=== PATIENT | female | born 1955 | race Caucasian/White ===

== ENCOUNTER → 2017-01-09 | Outpatient (CLI) | payer OTHER ==
[~2017-01-09] MED LIST: ADVIN50/60 INH; ALBU0.633 NEB; ALBU1AER9 INH; ALUMCHW2 PO; ASPCH81X PO; ATRINS NEB; CHOL100010 PO; DOCU-94 PO; MAGN100C PO; METH500T3 PO; MISCCAP80 PO; OMEG1200 PO; SPRIN/30 INH
--- NOTE | 2017-01-09 12:58 | DIAGNOSTIC IMAGING REPORT ---
(CHEST) THORAX WITHOUT CT DOSE: 778.92 mGy.cm HISTORY: R91.1 Pulmonary nodule APT SCHED [facility] 01/05/17 @ 1 PM. arrive 30 TECHNIQUE: Multiaxial CT images of the chest were performed without contrast. A dose lowering technique was utilized adhering to the principles of ALARA. COMPARISON: Chest CT 01/10/2016. FINDINGS: Stable 3 mm nodule within the superior segment of the left lower lobe in image 64. Mild emphysema. Stable 3 mm subpleural nodule within the left lower lobe on image 230. Punctate calcified granuloma seen within the base of the left lower lobe. Punctate calcified granuloma within the right upper lobe posteriorly. Punctate calcification within the superior segment of the right lower lobe. Stable 3 mm nodule within the right middle lobe on image 202. No new pulmonary nodules. The central airways are patent. No suspicious lytic or blastic osseous lesions. No mediastinal or hilar lymphadenopathy. Visualized portions of the liver, spleen, and right adrenal gland are unremarkable. Stable 11 mm benign adenoma within the left adrenal gland. Stable ectasia of the ascending thoracic aorta measuring up to 3.9 cm in diameter. The heart is normal in size. IMPRESSION: 1. Stable bilateral pulmonary nodules with the largest measuring 3 mm. No new pulmonary nodules identified. 2. Stable dilatation of the ascending thoracic aorta measures up to 3.9 cm. Please refer to below summary of Fleischner criteria recommendations for follow-up of incidental CT nodules (Codey Garcia, Guidelines for management of small pulmonary nodules detected on CT scans: A statement from the Fleischner Society, Radiology 237: [phone].) SOLID NODULES Solitary nodule size: <6 mm * Low risk patients: no follow-up needed * high risk patients: optional CT at 12 months Solitary nodule size: 6-8 mm * Low risk patients: follow-up at 6-12 months, then consider further follow-up at 18-24 months * high risk patients: initial follow-up CT at 6-12 months and then at 18-24 months if no change Solitary nodule size: >8 mm * either low or high risk patients - consider follow-up CT at 3 months, and/or CT-PET, and/or biopsy Multiple nodules size: <6 mm * Low risk patients: no routine follow-up * high risk patients: optional CT at 12 months Multiple nodules size: 6-8 mm * Low risk patients: follow-up at 3-6 months, then consider further follow-up at 18-24 months * high risk patients: follow-up at 3-6 months, then at 18-24 months if no change Multiple nodules size: >8 mm * Low risk patients: follow-up at 3-6 months, then consider further follow-up at 18-24 months * high risk patients: follow-up at 3-6 months, then at 18-24 months if no change Note: newly detected indeterminate nodule in persons 35 years of age or older. * Low risk patients: minimal or absent history of smoking and/or other known risk factors * high risk patients: history of smoking or of other known risk factors (e.g. first degree relative with lung cancer, or exposure to asbestos, radon, uranium) * if a nodule up to 8 mm is partly solid or is ground glass further follow-up is required after 24 months to exclude possible slow growing adenocarcinoma (ALESSANDRO) SUBSOLID NODULES Solitary pure ground-glass nodule * nodule size <6 mm - no CT follow-up required * nodule size >=6 mm - follow-up CT at 6-12 months, then every 2 years until 5 years Solitary part-solid nodule * nodule size <6 mm - no CT follow-up required * nodule size >=6 mm - follow-up CT at 3-6 months. If unchanged, and solid component remains <6 mm, then annual follow-up for 5 years Multiple subsolid nodules * nodule size <6 mm - follow-up CT at 3-6 months, consider further follow-up at 2 and 4 years if stable * nodule size >=6 mm - follow-up CT at 3-6 months, subsequent management based on the most suspicious nodule(s) Electronically signed by: Sreedhar Chu M.D. 01/09/2017 12:57 PM Dictated Date/Time: 01/09/2017 12:51 PM
== END | disposition home or self-care (01) ==
LOC: C.CTS 12:28
PROVIDERS: ATTEND Internal Medicine Critical Care Medicine
DX: R91.8 Other nonspecific abnormal finding of lung field (principal); I77.810 Thoracic aortic ectasia

== ENCOUNTER → 2017-07-02 | Outpatient (CLI) | payer OTHER ==
--- NOTE | 2017-07-02 12:20 | DIAGNOSTIC IMAGING REPORT ---
(CHEST) THORAX WITHOUT CLINICAL HISTORY: 61 years-old Female presenting with J44.9 COPD, [id number] Pulmonary [id number]. TECHNIQUE: Multidetector CT imaging of the chest was performed without the use of intravenous contrast. IV contrast: None. A dose lowering technique was used consistent with the principles of ALARA (as low as reasonably achievable). COMPARISON: 01/09/2017. CT DOSE (mGy.cm): The estimated cumulative dose is 543.45 mGycm. FINDINGS: Biomedical Field Service Engineer topogram: Unremarkable. On soft tissue windows, normal thyroid and thoracic inlet. No axillary, supraclavicular, hilar, or mediastinal lymphadenopathy. Normal aorta. Normal heart size. No pericardial or pleural effusion. 13 mm left adrenal nodule consistent with benign adrenal adenoma by density, unchanged from prior. Normal liver density. On lung windows, minimal dependent changes likely atelectasis. Punctate solid nodule in the right middle lobe (series 4 image 171), unchanged. 4 mm solid nodule in the right middle lobe (series 4 image 181), unchanged. Punctate solid nodule at the right apex (series 4 image 34), unchanged. Multiple additional punctate nodules in the right lung. 3 mm solid nodule in the periphery of the left lower lobe (series 4 image 216), unchanged. Multiple additional punctate nodules in the left lung. Trace apical predominant emphysema with subsegmental bronchial debris with bronchial wall thickening in the lower lobes. Airways patent. On bone windows, normal osseous structures. IMPRESSION: 1. Multiple solid pulmonary nodules measuring up to 4 mm, unchanged. Follow-up per Sammy Society 2017 recommendations below. 2. Emphysema and bronchial wall thickening with mucous plugging, smoking related lung injury. 3. Stable benign left adrenal adenoma. Please refer to below summary of Fleischner Society 2017 recommendations for follow-up of incidental CT nodules (H Radha et al. Guidelines for management of incidental pulmonary nodules detected on CT images: From the Fleischner Society 2017. Radiology 2017; 284: 228-243.) SOLID NODULES Single nodule; size < 6 mm * Low risk patients: No routine follow-up * High risk patients: Optional CT at 12 months Single nodule; size 6-8 mm * Low risk patients: CT at 6-12 months, then consider CT at 18-24 months * High risk patients: CT at 6-12 months, then at 18-24 months Single nodule; size > 8 mm * Either low or high risk patients: Considered CT at 3 months, PET/CT, or tissue sampling Multiple nodules; size < 6 mm * Low risk patients: No routine follow up * High risk patients: Optional CT at 12 months Multiple nodules; size 6-8 mm * Low risk patients: CT at 3-6 months, then consider CT at 18-24 months * High risk patients: CT at 3-6 months, then at 18-24 months Multiple nodules; size > 8 mm * Low risk patients: CT at 3-6 months, then consider at 18-24 months * High risk patients: CT at 3-6 months, then at 18-24 months SUBSOLID NODULES Single ground-glass nodule * Nodule size < 6 mm: No routine follow-up * Nodule size > or = 6 mm: CT at 6-12 months to confirm persistence, then CT every 2 years until 5 years Single part-solid nodule * Nodule size < 6 mm: No routine follow-up * Nodules size > or = 6 mm: CT at 3-6 months to confirm persistence. If unchanged and solid component remains < 6 mm, annual CT should be performed for 5 years Multiple nodules * Nodule size < 6 mm: CT at 3-6 months. If stable, consider CT at 2 and 4 years. * Nodules size > or = 6 mm: CT at 3-6 months. Subsequent management based on the most suspicious nodule(s) NOTE: 1) These guidelines apply to incidental nodules. These guidelines do NOT apply to patients younger than 35 years, immunocompromised patients, or patients with cancer. 2) Risk categories: * Low risk patients: Minimal or absent history of smoking and/or other known risk factors * High risk patients: History of smoking, exposure to other carcinogens, emphysema, fibrosis, upper lobe location, family history of lung cancer, etc. 3) If a nodule up to 8 mm is partly solid or is ground glass, further follow-up is required after 24 months to exclude possible slow growing adenocarcinoma. Electronically signed by: Christopher Orozco M.D. 07/02/2017 12:19 PM Dictated Date/Time: 07/02/2017 12:11 PM
== END | disposition home or self-care (01) ==
LOC: C.CTS 11:52
PROVIDERS: ATTEND Internal Medicine Pulmonary Disease
DX: J44.9 Chronic obstructive pulmonary disease, unspecified (principal); R91.8 Other nonspecific abnormal finding of lung field

== ENCOUNTER → 2017-07-05 | Outpatient (CLI) | payer OTHER ==
[2017-07-05 10:13] LABS: BASO % 0.3 %; BASO ABS # 0.03 K/uL (0-0.2); EOS % 5.4 %; EOS ABS # 0.47 K/uL (0-0.5); HEMATOCRIT 40.7 % (37-47); HEMOGLOBIN 14.1 g/dL (12.0-16.0); IG# 0.02 K/uL (0.00-0.02); LYMPH % 22.7 %; LYMPH ABS # 1.97 K/uL (1.2-3.4); MEAN CELL VOLUME 85.9 fL (80-100); MEAN CORPUSCULAR HEMOGLOBIN 29.7 pg (25-34); MEAN CORPUSCULAR HGB CONC 34.6 g/dl (32-36); MEAN PLATELET VOLUME 9.8 fL (7.4-10.4); MONO % 6.2 %; MONO ABS # 0.54 K/uL (0.11-0.59); NEUT % 65.2 %; NEUT ABS # 5.66 K/uL (1.4-6.5); PLATELET COUNT 248 K/uL (130-400); RED CELL DISTRIBUTION WIDTH CV 13.2 % (11.5-14.5); RED CELL DISTRIBUTION WIDTH SD 41.7 fL (36.4-46.3); WHITE BLOOD COUNT 8.69 K/uL (4.8-10.8)
[2017-07-05 10:41] LABS: BLOOD UREA NITROGEN 10 mg/dl (7-18); CALCIUM 8.9 mg/dl (8.5-10.1); CARBON DIOXIDE 28 mmol/L (21-32); CREATININE 0.92 mg/dl (0.60-1.20); GLUCOSE 109 mg/dl (70-99); POTASSIUM 3.6 mmol/L (3.5-5.1); SODIUM 142 mmol/L (136-145)
[2017-07-05 10:52] LABS: CHOLESTEROL 152 mg/dl (0-200); LDL CHOLESTEROL CALCULATED 89 mg/dl
== END | disposition home or self-care (01) ==
LOC: C.LAB1850 09:12
PROVIDERS: ATTEND Family Medicine
DX: Z13.220 Encounter for screening for lipoid disorders (principal); Z00.00 Encounter for general adult medical examination without abnormal findings; Z11.59 Encounter for screening for other viral diseases; R20.0 Anesthesia of skin; R73.9 Hyperglycemia, unspecified

== ENCOUNTER → 2017-10-03 | Outpatient (CLI) | payer OTHER ==
--- NOTE | 2017-10-04 06:33 | PAP/PSG TECHNICIAN REPORT ---
[facility] Nocturnist Polysomnogram Report Study name: None Report date: 10/04/2017 Study date: 10/03/2017 Referring Physician: DR. LIZET MATTHEW Name: JOÃO BALDERRAMA Interpreting Physician: Al Vega M.D. Date of : 1955 Nocturnist: BUTCH Gonzalez. Sex: Female Age: 62 StudyType: PSG PAP Weight: 218 lbs Height: 62 years, Height 5' 9" BMI: 32.19 Medications: ADVAIR DISKUS, IPRATROPIUM-ALBUTEROL, SPIRIVA RESPIMAT, ESCITALOPRAM OXALATE 10 MG, ASPIRIN 81 MG, PROAIR HFA 108 90 BASE Patient History PATIENT HAS HISTORY OF COPD, FATIGUE AND DAYTIME SLEEPINESS. SHE RECENTLY HAD A HOME SLEEP STUDY DONE AND WAS POSITIVE FOR ENDY. SHE IS HERE TODAY FOR A CPAP TITRATION. RM 2 Parameters Monitored NPSG: E1-M2, E2-M1, Fp1-M2, Fp2-M1, F3-M2, F4-M2, F4-M1, C3-M2, C4-M2, C4-M1, O1-M2, O2-M2, O2-M1, T3-M2, T4-M1, P3-M2, P4-M1, CHIN1, CHIN2, HR, EKG, Legs, PFLOW, SNOR, FLOW, CFLOW, Tidal Volume, THOR, ABDO, SpO2, PLTH, CPRESS, ETCO2 Wave, ETCO2, pH Sleep Architecture Sleep Stages Time at Lights Off 10:02:58 PM STAGES Time (min.) TST (%) Time at Lights On 5:52:58 AM Wake 100.5 -- Total Recording Time (TRT) 471.00 min. N1 11.5 3 Total Sleep Period (TSP) 440.0 min. N2 153.5 42 Total Sleep Time (TST) 369.5min. N3 96.0 26 Awake Time 100.5 min. REM 108.5 29 Wake after Sleep Onset 70.5 min. Sleep Efficiency (SE) 79 % Sleep Onset Latency (RUSSEL) 30.0 min. Number of Stage 1 Shifts None Awakenings 12 Stage Changes 54 Number of REM periods 4 REM 108.5 29 REM Latency 51.0 min. NREM 261.0 71 Body Position Analysis Supine Right Left Side Prone Vertical Total Sleep Time (min.) 22.3 369.5 0.0 369.50 0.0 0.0 Total Sleep Time (%) 0% 100% 0% 100 0% N/A% Total Sleep Time REM (min.) 0.0 108.5 0.0 None 0.0 0.0 Total Sleep Time NREM (min.) 0.0 261.0 0.0 None 0.0 0.0 Intermittent Wake (min.) 22.3 78.2 0.0 None 0.0 0.0 Total Sleep Period (%) 0% None None None None None Arousals Myoclonus (PLM) * Events Count Index Events Count Index Spontaneous 18 3 Events Awake (PLMW) 79 47.2 Respiratory 0 0.0 Events Asleep w/ Arousal (PLMA) 6 1.0 PLM 6 1 Events Asleep w/o Arousal (PLMS) 33 5.4 Snoring 0 0 Total Asleep 39 6.3 Total 24 4 Total 118 15 Respiratory Analysis * CA OA MA CH H RERA Total Count 0 0 0 0 6 1 6 Index 0.0 0.0 0.0 0 1.0 0 1.1 Mean Duration 0.0 0.0 0.0 0.00 20.9 17.1 20.4 Longest Duration 0.0 0.0 0.0 0.00 0.0 17.1 25.6 Respiratory Event Summary Total Supine ~Supine Right Left Prone REM NREM Apneas Count 0 N/A 0 0 N/A N/A 0 0 Index 0.0 N/A 0 0.0 N/A N/A 0 0 Hypopneas (4% Desat) Count 6 N/A 6 6 N/A N/A 6 0 Index 1.0 N/A 1 1.0 N/A N/A 3.3 0.0 Apneas & All Hypopneas Count 6 N/A 6 6 N/A N/A 6 0 Index 1.0 N/A 1 1 N/A N/A 3.3 0.0 Respiratory Events (Dairy Equipment Installer+All Hyp+RERA) Count 6 N/A 7 7 N/A N/A 6 0 Index 1.1 N/A 1 1.1 N/A N/A 3.9 0.0 Respiratory Related Arousal Count 0 N/A 0 0 N/A N/A 0 0 Index 0.0 N/A 0 0 N/A N/A 0 0 Snoring Analysis Supine Right Left Prone REM NREM Total Snore duration 2.0 min Snores count N/A 89 N/A N/A 37 52 89 Snore mean duration 1.4 Sec Snores index N/A 14 N/A N/A 20.5 12.0 14.5 TST with snoring (%) 0.5% Desaturation Event Summary: Minimum %SpO2 Event Count Mean/Min/Max Duration(sec.) Desaturation Index % Time In Bed > 90 13 31.3 / 13.0 / 60.0 3.9 46.0 86 - 90 6 26.4 / 13.0 / 53.3 1.6 53.1 81 - 85 0 N/A 0.0 0.9 76 - 80 0 N/A 0.0 0.1 71 - 75 0 N/A 0.0 0.0 66 - 70 0 N/A 0.0 0.0 61 - 65 0 N/A 0.0 0.0 56 - 60 0 N/A 0.0 0.0 51 - 55 0 N/A 0.0 0.0 < 50 0 N/A 0.0 0.0 Total REM NREM Awake <50% 0.0 min. 0.0 min. 0.0 min. 0.0 min. 51 - 60% 0.0 min. 0.0 min. 0.0 min. 0.0 min. 61 - 70% 0.0 min. 0.0 min. 0.0 min. 0.0 min. 71 - 80% 0.2 min. 0.0 min. 0.0 min. 0.2 min. 81 - 90% 233.6 min. 51.2 min. 168.8 min. 13.7 min. 91 - 100% 198.9 min. 57.3 min. 92.1 min. 49.4 min. Average 90 91 90 92 Minimum SpO2 74 83 86 74 Desaturation Event Index 2.0 4.4 0.5 3.6 # Desat. Events below 89% 7 6 1 N/A Time(%) with Saturation below 89% 23.1 5.4 17.5 0.2 Time(min.) with Saturation below 89% 100.0 23.4 75.6 1.0 Time (mins) REM (mins) NREM (mins) % of TST SpO2 Below 90% 9 7 N2 47.6 SpO2 Below 88% 3 0 0 7 Heart Rate Analysis Min (bpm) Max (bpm) Average (bpm) Awake 70 255 86 NREM 64 127 79 REM 65 93 78 Overall 64 127 79 Supplemental O2 Values Minimum O2 level: None Value Start Time End Time Nocturnist Comments Ms. Balderrama slept in the right, left and supine positions. No cardiac arrhythmia noted. Leg movements noted. No bruxism noted. CPAP was initiated at +4 CMH2O and up-titrated to an optimal level of +10 CMH2O, which nearly eliminated all respiratory events and snoring. A Resmed Airfit F10 size small full face mask was used during titration Ms. Balderrama awoke to use the restroom 1 times during the night. Ms. Balderrama stated I slept as well as I do when I am in my own bed. I started 1l/min of supplemental oxygen around 4:02 am. The final report will be interpreted and signed by a sleep physician. The completed physician report will then be placed in the patient medical record. Therapy Event: Therapy (cm H20) 4 5 7 8 10 Total Time at Pressure (min.) 49.5 40.7 73.2 33.8 272.8 TST at Pressure (min.) 19.0 40.7 67.7 33.8 208.3 # Periods 1 1 1 1 1 Sleep Onset (min.) 30.0 0.0 0.0 0.0 0.0 REM Onset (min.) N/A 31.5 0.0 27.5 0.0 Sleep Efficiency % 38 100 92 100 76 Wakefulness (%) 61.6 0.0 7.5 0.0 23.6 Wakefulness (min.) 30.5 0.0 5.5 0.0 64.5 NREM 1 (%) 7.1 0.0 2.7 0.0 2.2 NREM 1 (min.) 3.5 0.0 2.0 0.0 6.0 NREM 2 (%) 29.3 33.1 27.9 22.3 35.7 NREM 2 (min.) 14.5 13.5 20.5 7.5 97.5 NREM 3 (%) 2.0 44.2 46.4 59.2 8.4 NREM 3 (min.) 1.0 18.0 34.0 20.0 23.0 REM (%) 0.0 22.7 15.4 18.5 30.0 REM (min.) 0.0 9.2 11.3 6.2 81.8 # Arousals 3 1 4 1 15 Arousal Index 9.5 1.5 3.5 1.8 4.3 # Snore 17 20 19 6 27 Snore Index 53.6 29.5 16.8 10.7 7.8 AHI 0.0 5.9 0.0 1.8 0.3 AHI Supine N/A N/A N/A N/A N/A AHI Non-Supine 0.0 5.9 0.0 1.8 0.3 NREM AHI 0.0 0.0 0.0 0.0 0.0 REM AHI N/A 26.0 0.0 9.6 0.7 RDI 0.0 5.9 0.0 1.8 0.6 # Obstructive 0 0 0 0 0 # Central Ap 0 0 0 0 0 # Mixed 0 0 0 0 0 # Hypopneas 0 4 0 1 1 RERAS 0 0 0 0 1 Total Respiratory Events 0 4 0 1 2 Time Below SpO2 89.00% (min.) 0.0 13.1 17.8 23.2 45.0 Mean NREM SpO2 (%) 91 89 89 88 90 Mean REM SpO2 (%) N/A 89 91 87 91 Mean Sleep SpO2 (%) 91 89 90 88 91 Min NREM SpO2 (%) 90 87 87 86 87 Min REM SpO2 (%) N/A 86 89 84 83 Position Supine (min.) 0.0 0.0 0.0 0.0 0.0 Position Non-supine (min.) 19.0 40.7 67.7 33.8 208.3 LM Index Sleep 9.5 4.4 5.3 5.3 6.9 LM Index NREM 9.5 3.8 3.2 2.2 4.7 LM Index REM N/A 6.5 16.0 19.2 10.3 Mean Heart Rate (bpm) 78 78 79 78 79 Min Heart Rate (bpm) 72 64 70 65 66
--- NOTE | 2017-10-08 14:27 | POLYSOMNOGRAPH REPORT ---
CLINICAL DATA: A 62-year-old female with BMI of 32.[address] Lomax with COPD, excessive daytime sleepiness, fatigue, and sleep apnea documented on a home sleep apnea test. This was a CPAP titration study. SLEEP ARCHITECTURE: Total sleep period was 440 minutes. Total sleep time was 369.5 minutes divided between 261 minutes of non-REM sleep and 108.5 minutes of REM sleep. Sleep latency was 30 minutes. REM latency was 51 minutes. Sleep efficiency was 79%. Wake after sleep onset was 70.5 minutes. Sleep consisted of stage N1 3%, stage N2 42%, stage N3 26%, and REM 29%. AROUSAL DATA: 24 arousals were recorded for an index of 4 per hour. PLM DATA: 39 limb movements of sleep were noted for an index of 6.3 per hour with arousal index of 1 per hour. RESPIRATORY DATA: The AHI was 1. There were 6 hypopneic episodes with mean duration of 20.9 seconds. OXIMETRY DATA: Transient hypoxemia was seen. Oxygen golden was 82%. Mean saturation was 90%. Time below 88% was 3 minutes. EKG: Heart rates ranged from 64-127 beats per minute. No arrhythmias were noted. HEEL NAIL RASPER'S COMMENTS AND TREATMENT SUMMARY: The patient slept in the right, left, and supine positions. CPAP was started using a ResMed AirFit F10 small full facemask. She was titrated up to 10 cm of water pressure, which eliminated all respiratory events and snoring. However, hypoxemia continued. At 4:02 a.m., 1 L per minute was added which corrected hypoxemia. IMPRESSION: Obstructive sleep apnea/hypopnea with nocturnal hypoxemia corrected with CPAP 10 cm water pressure, oxygen 1 L per minute using a ResMed AirFit F10 size small full facemask. RECOMMENDATIONS: The patient should be started on the above-noted treatment regimen and seen back in followup within 90 days to document efficacy and compliance. DIPIKAD
== END | disposition home or self-care (01) ==
LOC: C.NEUR 21:00
PROVIDERS: ATTEND Internal Medicine Critical Care Medicine
DX: G47.33 Obstructive sleep apnea (adult) (pediatric) (principal); G47.36 Sleep related hypoventilation in conditions classified elsewhere

== ENCOUNTER 2019-08-02 19:00 | Inpatient (IN) ==
[2019-08-02] MEDS ORDERED: SODIUM CHLORIDE 0.9% 1000ML 1,000 ML IV ONE (19:09)
--- NOTE | 2019-08-02 19:37 | Emergency Department Note ---
Impression & Plan Sepsis, Fever, Leukocytosis, Diverticulitis ED Provider Note NAME: JOÃO BALDERRAMA AGE: 64 SEX: F : 1955 ARRIVES VIA: Walk-In INFORMANT: Patient ED PROVIDER(S): David Baumann DO CHIEF COMPLAINT: Abdominal pain HPI: Patient is a 64-year-old female with a past medical history of COPD and E. coli sepsis with a renal abscess that presents the ER for abdominal pain. Pain is located in left lower quadrant. She describes as a 7 out of 10. It has been present for the past 2 days. She admits to nausea and vomiting. History of cholecystectomy and appendectomy. She is unsure when the fevers truly started. Denies any dysuria urgency or frequency at this time. No other exacerbating or remitting factors. ROS: See above HPI for pertinent positives & negatives. A total of 10 systems reviewed and were otherwise negative. PAST MEDICAL HISTORY:See Below PAST SURGICAL HISTORY:See Below FAMILY HISTORY:See Below SOCIAL HISTORY:See Below HOME MEDICATIONS:See Below ALLERGIES:See Below VITALS:See Below PHYSICAL EXAMINATION: GENERAL: Sitting up in bed, alert, well appearing, well nourished, no distress, non-toxic EYE EXAM: normal conjunctiva. OROPHARYNX: no exudate, no erythema, lips, buccal mucosa, and tongue normal and mucous membranes are moist NECK: supple, no nuchal rigidity, no adenopathy, non-tender LUNGS: Clear to auscultation. Normal chest wall mechanics HEART: no murmurs, S1 normal and S2 normal ABDOMEN: abdomen soft, tender palpation left lower quadrant, normo-active bowel sounds, no masses, no rebound or guarding. BACK: Back is symmetrical on inspection and there is no deformity, no midline tenderness, no CVA tenderness. SKIN: no rashes and no bruising UPPER EXTREMITIES: upper extremities are grossly normal. LOWER EXTREMITIES: No pitting edema. NEURO EXAM: Normal sensorium, cranial nerves II-XII grossly intact, normal speech, no gross weakness of arms, no weakness of legs. MEDICAL DECISION MAKING: Patient is a 64-year-old female that presents the ER for left lower quadrant abdominal pain. On arrival patient is found to be febrile and tachycardic. IV was established and shows a leukocytosis of 15,000. No significant anemia. INR was unremarkable. BMP with LFTs bilirubin and troponin was negative. UA was unremarkable. Patient was updated at bedside. Discussed with hospitalist for admission secondary to fever, tachycardia, leukocytosis and diverticulitis. She was given IV fluids and IV antibiotics while in the ER. Triage Nursing notes reviewed. Prior medical records reviewed Vital Signs: reviewed and remarkable for tachycardic, hypertensive and febrile Differential diagnosis: Differential diagnosis includes etiologies such as sepsis, UTI, pneumonia, metabolic, electrolyte abnormalities, cardiac sources, intracerebral event, toxicologic, neurological, as well as others were entertained. ER treatment provided: See below Diagnostics interpreted by me: ECG: Sinus rhythm rate 93 Normal axis No PVCs Normal QTC Cardiac Monitoring: An order was placed for continuous cardiac monitoring. The monitor shows a rate of 110 with sinus rhythm. Laboratory studies: As stated above and show below. Imaging studies: CT abdomen pelvis shows diverticulitis Consultation(s): Dr. Jonas for admission. ED COURSE: Procedures: none Critical Care: None Past Med/Surg History Medical History (Updated 08/02/19 @ 22:29 by David Baumann DO) Acute pyelonephritis (Inactive) COPD (chronic obstructive pulmonary disease) (Chronic) E. coli septicemia Fever GERD (gastroesophageal reflux disease) (Chronic) Gram negative septicemia H/O Clostridium difficile infection (Chronic) Herpes labialis Leukocytosis (Acute) Obstructive sleep apnea of adult Renal abscess Sepsis (Acute) Surgical History H/O colonoscopy (Chronic) "11/2013- hyperplastic polyp, diverticulosis" S/P (Resolved) "1982" S/P cholecystectomy (Resolved) Social History Preferred Language: Vietnamese marital status: Current Living Situation: Alone current occupational status: employed Feels Safe at Home: Yes Smoking Status: Current every day smoker Allergies Allergies Allergy/AdvReac Type Severity Reaction Status Date / Time Penicillins Allergy Intermediate RESP. Verified 08/02/19 21:12 ISSUES Sulfa (Sulfonamide Allergy Intermediate RESP. Verified 08/02/19 21:12 Antibiotics) ISSUES Home Meds Home Medications Medication Instructions Recorded Confirmed Lactobacillus acidophilus 1 cap PO QAM 01/09/18 08/02/19 [Probiotic] albuterol sulfate 0.63 mg INHALATION Q4H 01/09/18 08/02/19 albuterol sulfate [ProAir HFA] 2 puff INHALATION QID PRN 01/09/18 08/02/19 aspirin [Aspir-81] 162 mg PO HS 01/09/18 08/02/19 cholecalciferol (vitamin D3) 1,000 unit PO HS 01/09/18 08/02/19 [Vitamin D3] ipratropium bromide 2.5 ml INHALATION Q4H 01/09/18 08/02/19 magnesium 100 mg PO QAM PRN 01/09/18 08/02/19 omega-3 fatty acids 1,000 mg PO HS 01/09/18 08/02/19 Previous Rx's Medication Instructions Recorded CPAP Machine #10 liter 04/04/19 fluticasone 500 mcg-salmeterol 50 1 inh INHALATION BID #60 ea 04/04/19 mcg/dose blistr powdr for inhalation Results & Data (ED) Vital Signs Vital Signs - 24 hr 08/02/19 19:01 08/02/19 19:09 08/02/19 19:21 Temperature 38.1 C H 37.4 C Temperature Source Oral Oral Pulse Rate 111 H Pulse Rate [Finger] Pulse Rate from SpO2 Sensor Respiratory Rate 18 Respiratory Effort / Characteristics Non-Labored Respiratory Depth Normal Blood Pressure 162/98 H Blood Pressure [Right Arm] Blood Pressure Mean 119 Blood Pressure Mean [Right Arm] Pulse Oximetry 92 Oxygen Delivery Method Room Air Room Air Sepsis Recent Fever Within 48 Hours No Sepsis Action Taken by Nursing No Action Required 08/02/19 19:40 08/02/19 20:00 08/02/19 20:30 Temperature Temperature Source Pulse Rate 100 H 99 H Pulse Rate [Finger] 95 H Pulse Rate from SpO2 Sensor 99 H 99 H 95 H Respiratory Rate 15 32 H 29 H Respiratory Effort / Characteristics Non-Labored Spontaneous Respiratory Depth Normal Blood Pressure 120/87 135/70 144/82 H Blood Pressure [Right Arm] 144/82 H Blood Pressure Mean 106 94 99 Blood Pressure Mean [Right Arm] 102 Pulse Oximetry 94 91 92 Oxygen Delivery Method Room Air Room Air Room Air Sepsis Recent Fever Within 48 Hours Sepsis Action Taken by Nursing 08/02/19 21:01 08/02/19 21:36 08/02/19 22:00 Temperature Temperature Source Pulse Rate 87 85 89 Pulse Rate [Finger] Pulse Rate from SpO2 Sensor 88 86 88 Respiratory Rate 22 18 24 Respiratory Effort / Characteristics Respiratory Depth Blood Pressure 126/53 L 116/77 129/74 Blood Pressure [Right Arm] Blood Pressure Mean 79 91 91 Blood Pressure Mean [Right Arm] Pulse Oximetry 95 92 92 Oxygen Delivery Method Room Air Room Air Room Air Sepsis Recent Fever Within 48 Hours Sepsis Action Taken by Nursing Laboratory Data Result diagrams: 08/02/19 19:20 08/02/19 19:20 Lab Results 08/02/19 08/02/19 08/02/19 Range/Units 19:15 19:20 19:20 WBC 15.83 H (4.8-10.8) K/uL RBC 4.60 (4.2-5.4) M/uL Hgb 14.0 (12.0-16.0) g/dL Hct 40.7 (37-47) % MCV 88.5 (80-100) fL MCH 30.4 (25-34) pg MCHC 34.4 (32-36) g/dL RDW Std Deviation 43.3 (36.4-46.3) fL RDW Coeff of Grecia 13.4 (11.5-14.5) % Plt Count 251 (130-400) K/uL MPV 10.1 (7.4-10.4) fL Immature Gran % (Auto) 0.3 % Neut % (Auto) 74.9 % Lymph % (Auto) 13.0 % Cata[place] % (Auto) 9.0 % Eos % (Auto) 2.5 % Baso % (Auto) 0.3 % Immature Gran # (Auto) 0.05 H (0.00-0.02) K/uL Neut # (Auto) 11.87 H (1.4-6.5) K/uL Lymph # (Auto) 2.05 (1.2-3.4) K/uL [place] # (Auto) 1.43 H (0.11-0.59) K/uL Eos # (Auto) 0.39 (0-0.5) K/uL Baso # (Auto) 0.04 (0-0.2) K/uL PT 11.3 (9.0-12.0) Seconds INR 1.1 (0.9-1.1) APTT 26.2 (21.0-31.0) Seconds PTT Ratio 0.9 Sodium (136-145) mmol/L Potassium (3.5-5.1) mmol/L Chloride (98-107) mmol/L Carbon Dioxide (21-32) mmol/L Anion Gap (3-11) BUN (7-18) mg/dl Creatinine (0.6-1.2) mg/dl Est Cr Clr Drug Dosing ml/min Est GFR ( Amer) Est GFR (Non-Af Amer) BUN/Creatinine Ratio (10-20) Glucose (70-99) mg/dl Lactate (0.4-2.0) mmol/L Calcium (8.5-10.1) mg/dl Magnesium (1.8-2.4) mg/dl Total Bilirubin (0.2-1) mg/dl AST (15-37) U/L ALT (12-78) U/L Alkaline Phosphatase (45-117) U/L Troponin I (0-0.045) ng/ml Total Protein (6.4-8.2) gm/dl Albumin (3.4-5.0) gm/dl Globulin (2.5-4.0) gm/dl Albumin/Globulin Ratio (0.9-2) Urine Color Yellow Urine Appearance Cloudy A (Clear) Urine pH 5.0 (4.5-7.5) Ur Specific Horner 1.020 (1.000-1.030) Urine Protein 1+ H (Negative) Urine Glucose (UA) Negative (Negative) Urine Ketones Negative (Negative) Urine Blood 1+ H (Negative) Urine Nitrite Negative (Negative) Urine Bilirubin Negative (Negative) Urine Urobilinogen Negative (Negative) Ur Leukocyte Esterase Negative (Negative) Urine WBC (Auto) 1-5 (0-5) /hpf Urine RBC (Auto) 0-4 (0-4) /hpf U Hyaline Cast (Auto) 5-10 H (0-5) /lpf U Epithel Cells (Auto) >30 H (0-5) /lpf Urine Bacteria (Auto) Negative (Negative) SARS-CoV-2 RNA (RT-PCR) 08/02/19 08/02/19 08/02/19 Range/Units 19:20 19:25 21:25 WBC (4.8-10.8) K/uL RBC (4.2-5.4) M/uL Hgb (12.0-16.0) g/dL Hct (37-47) % MCV (80-100) fL MCH (25-34) pg MCHC (32-36) g/dL RDW Std Deviation (36.4-46.3) fL RDW Coeff of Grecia (11.5-14.5) % Plt Count (130-400) K/uL MPV (7.4-10.4) fL Immature Gran % (Auto) % Neut % (Auto) % Lymph % (Auto) % [place] % (Auto) % Eos % (Auto) % Baso % (Auto) % Immature Gran # (Auto) (0.00-0.02) K/uL Neut # (Auto) (1.4-6.5) K/uL Lymph # (Auto) (1.2-3.4) K/uL [place] # (Auto) (0.11-0.59) K/uL Eos # (Auto) (0-0.5) K/uL Baso # (Auto) (0-0.2) K/uL PT (9.0-12.0) Seconds INR (0.9-1.1) APTT (21.0-31.0) Seconds PTT Ratio Sodium 137 (136-145) mmol/L Potassium 4.0 (3.5-5.1) mmol/L Chloride 106 (98-107) mmol/L Carbon Dioxide 25 (21-32) mmol/L Anion Gap 6.0 (3-11) BUN 10 (7-18) mg/dl Creatinine 1.06 (0.6-1.2) mg/dl Est Cr Clr Drug Dosing 72.4 ml/min Est GFR ( Amer) 64.7 Est GFR (Non-Af Amer) 55.8 BUN/Creatinine Ratio 9.5 L (10-20) Glucose 139 H (70-99) mg/dl Lactate 1.1 (0.4-2.0) mmol/L Calcium 8.9 (8.5-10.1) mg/dl Magnesium 2.1 (1.8-2.4) mg/dl Total Bilirubin 0.7 (0.2-1) mg/dl AST 11 L (15-37) U/L ALT 34 (12-78) U/L Alkaline Phosphatase 73 (45-117) U/L Troponin I < 0.015 (0-0.045) ng/ml Total Protein 7.7 (6.4-8.2) gm/dl Albumin 3.5 (3.4-5.0) gm/dl Globulin 4.2 H (2.5-4.0) gm/dl Albumin/Globulin Ratio 0.8 L (0.9-2) Urine Color Urine Appearance (Clear) Urine pH (4.5-7.5) Ur Specific Horner (1.000-1.030) Urine Protein (Negative) Urine Glucose (UA) (Negative) Urine Ketones (Negative) Urine Blood (Negative) Urine Nitrite (Negative) Urine Bilirubin (Negative) Urine Urobilinogen (Negative) Ur Leukocyte Esterase (Negative) Urine WBC (Auto) (0-5) /hpf Urine RBC (Auto) (0-4) /hpf U Hyaline Cast (Auto) (0-5) /lpf U Epithel Cells (Auto) (0-5) /lpf Urine Bacteria (Auto) (Negative) SARS-CoV-2 RNA (RT-PCR) Cancelled Administered Medications Ioversol (Optiray 320 100ml) 94 ml IV ONCE PRN PRN Reason: Interaction Checking Stop: 08/06/19 20:15 Last Admin: 08/02/19 20:17 Dose: 94 ml Documented by: [id number] Discontinued Medications Sodium Chloride (Nss 1000ml) 1,000 mls @ 999 mls/hr IV .Q1H1M ONE Stop: 08/02/19 20:09 Last Infusion: 08/02/19 22:10 Dose: 0 mls/hr Documented by: [id number] Admin: 08/02/19 19:45 Dose: 999 mls/hr Documented by: [id number] Metronidazole (Flagyl) 500 mg in 100 mls @ 100 mls/hr IV NOW STA Stop: 08/02/19 21:54 Last Infusion: 08/02/19 22:10 Dose: 0 mls/hr Documented by: [id number] Admin: 08/02/19 21:04 Dose: 100 mls/hr Documented by: [id number] Discharge Plan Visit Data Chief Complaint: Flank Pain Stated Complaint: KIDNEY PAIN ED Provider: David Baumann Discharge Problem: Sepsis, Fever, Leukocytosis, Diverticulitis Forms Stand Alone Forms: [facility] Prescriptions Prescriptions: No Action fluticasone propion-salmeterol [Advair Diskus] 500-50 mcg/dose blister with device 1 inh INHALATION BID Qty: 60 RF: 6 Hold Instructions: trial trelegy (DME) CPAP Machine Misc See Rx Instructions .ROUTE .MEDSUPPLY Qty: 10 RF: 0 albuterol sulfate 0.63 mg/3 mL Solution For Nebulization 0.63 mg INHALATION Q4H RF: 0 omega-3 fatty acids 1,000 mg Capsule 1,000 mg PO HS RF: 0 aspirin [Aspir-81] 81 mg Tablet,Delayed Release (Dr/Ec) 162 mg PO HS RF: 0 albuterol sulfate [ProAir HFA] 90 mcg/actuation Hfa Aerosol Inhaler 2 puff INHALATION QID PRN (Reason: Shortness Of Breath Or Wheezing) RF: 0 ipratropium bromide 0.02 % Solution 2.5 ml INHALATION Q4H RF: 0 cholecalciferol (vitamin D3) [Vitamin D3] 1,000 unit Capsule 1,000 unit PO HS RF: 0 magnesium 200 mg Tablet 100 mg PO QAM PRN (Reason: Restless Legs) RF: 0 Probiotic 10 billion cell Capsule 1 cap PO QAM RF: 0 Discharge Problem: Sepsis Qualifiers: Sepsis type: sepsis due to unspecified organism Sepsis acute organ dysfunction status: unspecified Qualified Code(s): A41.9 - Sepsis, unspecified organism Fever Qualifiers: Fever type: unspecified Qualified Code(s): R50.9 - Fever, unspecified Leukocytosis Qualifiers: Leukocytosis type: unspecified Qualified Code(s): D72.829 - Elevated white blood cell count, unspecified
[2019-08-02 19:42] LABS: Basophils # (auto) 0.04 K/uL (0-0.2); Basophils % (auto) 0.3 %; Eosinophils # (auto) 0.39 K/uL (0-0.5); Eosinophils % (auto) 2.5 %; Hematocrit (blood only) 40.7 % (37-47); Immature Granulocytes # (auto) 0.05 K/uL (0.00-0.02); Immature Granulocytes % (auto) 0.3 %; Lymphocytes # (auto) 2.05 K/uL (1.2-3.4); Mean Corpuscular Hemoglobin 30.4 pg (25-34); Mean Corpuscular Hgb Conc 34.4 g/dL (32-36); Mean Corpuscular Volume 88.5 fL (80-100); Mean Platelet Volume 10.1 fL (7.4-10.4); Monocytes # (auto) 1.43 K/uL (0.11-0.59); Neutrophils # (auto) 11.87 K/uL (1.4-6.5); Neutrophils % (auto) 74.9 %; Platelet Count 251 K/uL (130-400); RDW Coefficient of Variation 13.4 % (11.5-14.5); RDW Standard Deviation 43.3 fL (36.4-46.3); White Blood Count 15.83 K/uL (4.8-10.8)
--- NOTE | 2019-08-02 19:42 | XRay Report ---
SINGLE VIEW CHEST CLINICAL HISTORY: Sepsis. FINDINGS: An AP, portable, upright chest radiograph is compared to study dated 10/13/2015 and correlat ed with chest CT dated 02/20/2019. The examination is degraded by portable technique, apical lordotic positioning, and patient rotation. The cardiomediastinal silhouette is unremarkable. Mild emphysem atous change is similar to previous. Atelectasis is noted at the lung bases. No airspace consolidatio n or large pleural effusion is identified. No pneumothorax is seen. The skeletal structures are osteo penic. The bony thorax is grossly intact. IMPRESSION: Emphysematous change with no active disease in the chest. ACT 112: Negative or not required by law. Electronically signed by: Royce Bourgeois M.D. 08/02/2019 7:41 PM
[2019-08-02 19:45] LABS: Appearance Urine Cloudy (Clear); Bacteria Urine Automated Negative (Negative); Bilirubin Urine Negative (Negative); Blood Urine 1+ (Negative); Color Urine Yellow; Epithelial Cell Urine Auto >30 /lpf (0-5); Glucose Urine UA Negative (Negative); Ketones Urine Negative (Negative); Leukocyte Esterase Urine Negative (Negative); Nitrite Urine Negative (Negative); Protein Urine 1+ (Negative); RBC Urine Automated 0-4 /hpf (0-4); Urobilinogen Urine Negative (Negative)
[2019-08-02 19:56] LABS: INR 1.1 (0.9-1.1); Partial Thromboplastin Ratio 0.9; Partial Thromboplastin Time 26.2 Seconds (21.0-31.0); Prothrombin Time 11.3 Seconds (9.0-12.0)
[2019-08-02 19:59] LABS: Albumin Level 3.5 gm/dl (3.4-5.0); Aspartate Aminotransferase 11 U/L (15-37); BUN Creatinine Ratio 9.5 (10-20); Blood Urea Nitrogen 10 mg/dl (7-18); Calcium 8.9 mg/dl (8.5-10.1); Carbon Dioxide 25 mmol/L (21-32); Chloride 106 mmol/L (98-107); Creatinine Clr Calc Pharmacy 72.4 ml/min; Est GFR (African American) 64.7; Est GFR (Non-African American) 55.8; Glucose 139 mg/dl (70-99); Magnesium 2.1 mg/dl (1.8-2.4); Sodium 137 mmol/L (136-145)
[2019-08-02 20:04] LABS: Alanine Aminotransferase 34 U/L (12-78); Albumin Globulin Ratio 0.8 (0.9-2); Alkaline Phosphatase 73 U/L (45-117); Bilirubin,Total 0.7 mg/dl (0.2-1); Globulin 4.2 gm/dl (2.5-4.0); Total Protein 7.7 gm/dl (6.4-8.2); Troponin I < 0.015 ng/ml (0-0.045)
[2019-08-02] MEDS ORDERED: IOVERSOL 100ml IV PRN (20:16)
--- NOTE | 2019-08-02 20:34 | CT Scan Report ---
CT SCAN OF THE ABDOMEN AND PELVIS WITH IV CONTRAST CLINICAL HISTORY: Lower abdominal pain. COMPARISON STUDY: Abdominal CT dated 01/09/2018. TECHNIQUE: Following the IV administration of 94 cc of Optiray 320, CT scan of the abdomen and pelvi s is performed from the lung bases to the proximal femora. Images are reviewed in the axial, sagittal , and coronal planes. IV contrast was administered without complication. A dose lowering technique wa s utilized adhering to the principles of ALARA. CT DOSE: 1430.55 mGy.cm FINDINGS: Lung bases: The heart is normal in size and without pericardial effusion. The lung bases are clear no ting bibasilar scarring/atelectasis. Liver: The contrast-enhanced liver is enlarged, measuring 20.5 cm in length. The liver demonstrates d iffusely diminished attenuation consistent with hepatic steatosis. There is no intrahepatic biliary d uctal dilatation. The hepatic veins and portal veins are patent. Gallbladder: Surgically absent. Spleen: Spleen is mildly enlarged measuring 14.1 cm in length. Pancreas: Moderately atrophic and grossly unremarkable. Adrenal glands: A 1.9 cm left adrenal adenoma is unchanged. The right adrenal gland is normal in appe arance. Kidneys: The contrast enhanced kidneys demonstrate mild cortical atrophy and are without hydronephros is. The kidneys enhance symmetrically. A 3 mm nonobstructing calculus is seen in the right lower pole . Cortical scarring is noted in the left kidney. A subcentimeter cortical hypodensity in the left rig ht kidney likely represents a cyst but is too small for definitive characterization. Abdominal vasculature: The abdominal aorta is normal in course and caliber. Ectasia of the celiac anthony nk is unchanged. This measures up to 12 mm in diameter Bowel: There is moderate colonic diverticulosis. There is wall thickening with pericolonic inflammati on and trace fluid seen involving the sigmoid colon consistent with acute diverticulitis. No organize d fluid collection is seen to suggest abscess. No bowel obstruction is identified. The appendix is n ot visualized. Peritoneum: There is no intraperitoneal free air or abdominal ascites. Lymphadenopathy: None. Pelvic viscera: The bladder and uterus are normal as imaged. The left ovary is mildly enlarged, likel y representing a reactive oophoritis. Skeletal structures: The skeletal structures are osteopenic. No lytic or blastic lesions are seen. IMPRESSION: 1. There is moderate colonic diverticulosis with evidence of acute sigmoid diverticulitis. 2. No intraperitoneal free air is identified and there is no organized fluid collection to suggest ab scess. 3. The left ovary is mildly enlarged and located adjacent to the acute diverticulitis. This indicates a reactive oophoritis. 4. Hepatomegaly and hepatic steatosis. 5. Mild splenomegaly. 6. Right-sided nephrolithiasis. 7. Additional findings as above. ACT 112: Negative or not required by law. Electronically signed by: Royce Bourgeois M.D. 08/02/2019 8:33 PM
[2019-08-02] MEDS ORDERED: metroNIDAZOLE 500 MG/100 ML BAG IV STA (20:55)
--- NOTE | 2019-08-02 22:35 | History & Physical Report ---
Date of Service August 02, 2019 Assessment & Plan (1) Sepsis: (2) Diverticulitis: 64-year-old female with history of COPD presenting with left lower quadrant pain x2 days. Acute sigmoid diverticulitis Sepsis secondary to above CT abd/pelvis: 1. There is moderate colonic diverticulosis with evidence of acute sigmoid diverticulitis. 2. No intraperitoneal free air is identified and there is no organized fluid collection to suggest abscess. 3. The left ovary is mildly enlarged and located adjacent to the acute diverticulitis. This indicates a reactive oophoritis. 4. Hepatomegaly and hepatic steatosis. 5. Mild splenomegaly. 6. Right-sided nephrolithiasis. 7. Additional findings as above. Lactic acid normal Follow-up blood cultures Cipro plus Flagyl N.p.o., IV fluids General surgery consultation COPD patient unable to have her usual nebs since 1 pm (+) mild wheeze CXR clear continue usual Advair, Nebs q4h DVT prophylaxis SCDs Disposition Anticipate discharge to home medically stable History of Present Illness 64-year-old female with history of COPD continue with left lower quadrant pain x 2 days. Patient reports 2-day history of left lower quadrant pain associated with nausea and vomiting. No fevers or chills, shortness of breath, cough, sputum production. No melena or hematochezia. No problems with urination. At the ER, patient was received febrile 38.1, tachycardic at 111, blood pressure stable. Positive leukocytosis 15,800 CT abdomen pelvis showed: 1. There is moderate colonic diverticulosis with evidence of acute sigmoid diverticulitis. 2. No intraperitoneal free air is identified and there is no organized fluid collection to suggest abscess. 3. The left ovary is mildly enlarged and located adjacent to the acute diverticulitis. This indicates a reactive oophoritis. 4. Hepatomegaly and hepatic steatosis. 5. Mild splenomegaly. 6. Right-sided nephrolithiasis. 7. Additional findings as above. On exam the patient reports mild left lower quadrant discomfort. No other symptoms Primary Care Provider: Christopher Torres MD Allergies Allergy/AdvReac Type Severity Reaction Status Date / Time Penicillins Allergy Intermediate RESP. Verified 08/02/19 21:12 ISSUES Sulfa (Sulfonamide Allergy Intermediate RESP. Verified 08/02/19 21:12 Antibiotics) ISSUES Home Medications Home Medications Medication Instructions Recorded Confirmed Type Lactobacillus acidophilus 1 cap PO QAM 01/09/18 08/02/19 History [Probiotic] albuterol sulfate 0.63 mg INHALATION Q4H 01/09/18 08/02/19 History albuterol sulfate [ProAir HFA] 2 puff INHALATION QID PRN 01/09/18 08/02/19 History aspirin [Aspir-81] 162 mg PO HS 01/09/18 08/02/19 History cholecalciferol (vitamin D3) 1,000 unit PO HS 01/09/18 08/02/19 History [Vitamin D3] ipratropium bromide 2.5 ml INHALATION Q4H 01/09/18 08/02/19 History magnesium 100 mg PO QAM PRN 01/09/18 08/02/19 History omega-3 fatty acids 1,000 mg PO HS 01/09/18 08/02/19 History CPAP Machine #10 liter 04/04/19 04/04/19 Rx fluticasone 500 mcg-salmeterol 50 1 inh INHALATION BID #60 ea 04/04/19 08/02/19 Rx mcg/dose blistr powdr for inhalation Past Med/Surg History Medical History (Updated 08/02/19 @ 22:29 by David Bamuann DO) Acute pyelonephritis (Inactive) COPD (chronic obstructive pulmonary disease) (Chronic) E. coli septicemia Fever GERD (gastroesophageal reflux disease) (Chronic) Gram negative septicemia H/O Clostridium difficile infection (Chronic) Herpes labialis Leukocytosis (Acute) Obstructive sleep apnea of adult Renal abscess Sepsis (Acute) Surgical History H/O colonoscopy (Chronic) "11/2013- hyperplastic polyp, diverticulosis" S/P (Resolved) "1982" S/P cholecystectomy (Resolved) Social History Preferred Language: Khmer marital status: Current Living Situation: Alone current occupational status: employed Feels Safe at Home: Yes Smoking Status: Current every day smoker Review of Systems Review of Systems: All systems reviewed & are unremarkable except as noted in HPI & below Physical Exam Physical Exam: General- oriented x 3, not in distress, speaks in sentences with no effort or accessory muscle use Head- atraumatic Eyes- PERRL, EOMI, anicteric ENT- oropharynx clear Neck- supple, no JVD, no adenopathy, no thyromegaly; carotids +2/2, no bruits appreciated Lungs-mild wheeze BL Heart- normal rate, regular rhythm; no murmur, no gallop, no rub appreciated Abdomen- normal bowel sounds, nondistended, soft, positive mild tenderness left lower quadrant, no masses or hepatosplenomegaly Extremities- no pretibial edema, no calf tenderness; peripheral pulses intact Neuro- alert, oriented x 3; CN 2-12 grossly intact; motor 5/5 bilaterally;sensation 100% on all extremities; no other gross focal neurologic deficits Skin- warm & dry Results & Data Results & Data ([facility]) Vital Signs (Past 12 Hours) Vital Signs Temp Pulse Pulse Resp BP BP Pulse Ox 08/02/19 22:00 89 24 129/74 92 08/02/19 21:36 85 18 116/77 92 08/02/19 21:01 87 22 126/53 L 95 08/02/19 20:30 95 H 29 H 144/82 H 144/82 H 92 08/02/19 20:00 99 H 32 H 135/70 91 08/02/19 19:40 100 H 15 120/87 94 08/02/19 19:21 37.4 C 08/02/19 19:01 38.1 C H 111 H 18 162/98 H 92 Laboratory Results Laboratory Results - last 24 hr 08/02/19 08/02/19 08/02/19 19:15 19:20 19:20 WBC 15.83 H RBC 4.60 Hgb 14.0 Hct 40.7 MCV 88.5 MCH 30.4 MCHC 34.4 RDW Std Deviation 43.3 RDW Coeff of [place] 13.4 Plt Count 251 MPV 10.1 Immature Gran % (Auto) 0.3 Neut % (Auto) 74.9 Lymph % (Auto) 13.0 Kerr % (Auto) 9.0 Eos % (Auto) 2.5 Baso % (Auto) 0.3 Immature Gran # (Auto) 0.05 H Neut # (Auto) 11.87 H Lymph # (Auto) 2.05 Kerr # (Auto) 1.43 H Eos # (Auto) 0.39 Baso # (Auto) 0.04 PT 11.3 INR 1.1 APTT 26.2 PTT Ratio 0.9 Sodium Potassium Chloride Carbon Dioxide Anion Gap BUN Creatinine Est Cr Clr Drug Dosing Est GFR ( Amer) Est GFR (Non-Af Amer) BUN/Creatinine Ratio Glucose Lactate Calcium Magnesium Total Bilirubin AST ALT Alkaline Phosphatase Troponin I Total Protein Albumin Globulin Albumin/Globulin Ratio Urine Color Yellow Urine Appearance Cloudy A Urine pH 5.0 Ur Specific [place] 1.020 Urine Protein 1+ H Urine Glucose (UA) Negative Urine Ketones Negative Urine Blood 1+ H Urine Nitrite Negative Urine Bilirubin Negative Urine Urobilinogen Negative Ur Leukocyte Esterase Negative Urine WBC (Auto) 1-5 Urine RBC (Auto) 0-4 U Hyaline Cast (Auto) 5-10 H U Epithel Cells (Auto) >30 H Urine Bacteria (Auto) Negative COVID-19 PCR SARS-CoV-2 RNA (RT-PCR) 08/02/19 08/02/19 08/02/19 19:20 19:25 21:25 WBC RBC Hgb Hct MCV MCH MCHC RDW Std Deviation RDW Coeff of [place] Plt Count MPV Immature Gran % (Auto) Neut % (Auto) Lymph % (Auto) Kerr % (Auto) Eos % (Auto) Baso % (Auto) Immature Gran # (Auto) Neut # (Auto) Lymph # (Auto) Kerr # (Auto) Eos # (Auto) Baso # (Auto) PT INR APTT PTT Ratio Sodium 137 Potassium 4.0 Chloride 106 Carbon Dioxide 25 Anion Gap 6.0 BUN 10 Creatinine 1.06 Est Cr Clr Drug Dosing 72.4 Est GFR ( Amer) 64.7 Est GFR (Non-Af Amer) 55.8 BUN/Creatinine Ratio 9.5 L Glucose 139 H Lactate 1.1 Calcium 8.9 Magnesium 2.1 Total Bilirubin 0.7 AST 11 L ALT 34 Alkaline Phosphatase 73 Troponin I < 0.015 Total Protein 7.7 Albumin 3.5 Globulin 4.2 H Albumin/Globulin Ratio 0.8 L Urine Color Urine Appearance Urine pH Ur Specific [place] Urine Protein Urine Glucose (UA) Urine Ketones Urine Blood Urine Nitrite Urine Bilirubin Urine Urobilinogen Ur Leukocyte Esterase Urine WBC (Auto) Urine RBC (Auto) U Hyaline Cast (Auto) U Epithel Cells (Auto) Urine Bacteria (Auto) COVID-19 PCR SARS-CoV-2 RNA (RT-PCR) Cancelled 08/02/19 21:25 WBC RBC Hgb Hct MCV MCH MCHC RDW Std Deviation RDW Coeff of [place] Plt Count MPV Immature Gran % (Auto) Neut % (Auto) Lymph % (Auto) Kerr % (Auto) Eos % (Auto) Baso % (Auto) Immature Gran # (Auto) Neut # (Auto) Lymph # (Auto) Kerr # (Auto) Eos # (Auto) Baso # (Auto) PT INR APTT PTT Ratio Sodium Potassium Chloride Carbon Dioxide Anion Gap BUN Creatinine Est Cr Clr Drug Dosing Est GFR ( Amer) Est GFR (Non-Af Amer) BUN/Creatinine Ratio Glucose Lactate Calcium Magnesium Total Bilirubin AST ALT Alkaline Phosphatase Troponin I Total Protein Albumin Globulin Albumin/Globulin Ratio Urine Color Urine Appearance Urine pH Ur Specific [place] Urine Protein Urine Glucose (UA) Urine Ketones Urine Blood Urine Nitrite Urine Bilirubin Urine Urobilinogen Ur Leukocyte Esterase Urine WBC (Auto) Urine RBC (Auto) U Hyaline Cast (Auto) U Epithel Cells (Auto) Urine Bacteria (Auto) COVID-19 PCR Pending SARS-CoV-2 RNA (RT-PCR) (1) Sepsis Sepsis acute organ dysfunction status: unspecified Sepsis type: sepsis due to unspecified organism Qualified Code(s): A41.9 - Sepsis, unspecified organism
[2019-08-02] MEDS ORDERED: MoRPHine SULFATE 4 MG/ML 1 ML CARP\\VIAL IV PRN (23:17)
[2019-08-02] MEDS ORDERED: ALBUTEROL HFA 8 GM INHALER INH PRN (23:17)
[2019-08-02] MEDS ORDERED: PROMETHAZINE HCL 12.5 MG in SODIUM CHLORIDE 0.9% 50 ML IV PRN (23:17)
[2019-08-02] MEDS ORDERED: D5W AND NSS 1,000 ML IV SCH (23:17)
[2019-08-02] MEDS ORDERED: ALBUTEROL 0.5% NEB SOLN 2.5 MG/0.5 ML VIAL NEB PRN (23:17)
[2019-08-02] MEDS ORDERED: IPRATROPIUM BROMIDE NEB SOLN 0.02% 2.5 ML VIAL INH PRN (23:17)
[2019-08-02] MEDS ORDERED: NON-FORMULARY MEDICATION (Magnesium 100 MG) PO PRN (23:17)
[2019-08-02] MEDS ORDERED: ACETAMINOPHEN 325 MG TAB PO PRN (23:17)
[2019-08-02] MEDS ORDERED: TRAMADOL HCL 50 MG TABLET PO PRN (23:17)
[2019-08-02] MEDS ORDERED: XOPENEX/ATROVENT 1.25mg/0.5MG NEB COMBO NEB SCH (23:45)
[2019-08-02] MEDS ORDERED: FLUTICASONE/VILANTEROL 200/25MCG 14 PUFFS/INHALER INH STA (23:49)
[2019-08-02] MEDS: IPRATROPIUM BROMIDE NEB SOLN 0.02% 2.5 ML VIAL INH SCH (23:51)
[2019-08-02] MEDS ORDERED: FLUTICASONE/VILANTEROL 200/25MCG 14 PUFFS/INHALER INH SCH (23:51)
[2019-08-02] MEDS: LEVALBUTEROL 1.25MG/0.5ML NEB INH SCH (23:55)
[2019-08-03] MEDS: CIPROFLOXACIN / D5W 400 MG/200 ML BAG IV SCH ×2 (00:16→11:36)
[2019-08-03] MEDS: LEVALBUTEROL 1.25MG/0.5ML NEB INH SCH ×3 (03:08→11:10)
[2019-08-03] MEDS: IPRATROPIUM BROMIDE NEB SOLN 0.02% 2.5 ML VIAL INH SCH ×3 (03:09→11:11)
[2019-08-03] MEDS: metroNIDAZOLE 500 MG/100 ML BAG IV SCH ×2 (05:51→14:11)
[2019-08-03 06:51] LABS: Basophils # (auto) 0.03 K/uL (0-0.2); Basophils % (auto) 0.3 %; Eosinophils # (auto) 0.41 K/uL (0-0.5); Eosinophils % (auto) 4.1 %; Hemoglobin 12.3 g/dL (12.0-16.0); Immature Granulocytes # (auto) 0.04 K/uL (0.00-0.02); Immature Granulocytes % (auto) 0.4 %; Lymphocytes # (auto) 1.79 K/uL (1.2-3.4); Lymphocytes % (auto) 17.9 %; Mean Corpuscular Hgb Conc 33.2 g/dL (32-36); Mean Corpuscular Volume 90.2 fL (80-100); Mean Platelet Volume 9.6 fL (7.4-10.4); Monocytes # (auto) 1.04 K/uL (0.11-0.59); Monocytes % (auto) 10.4 %; Neutrophils # (auto) 6.69 K/uL (1.4-6.5); Neutrophils % (auto) 66.9 %; Platelet Count 204 K/uL (130-400); RDW Coefficient of Variation 13.5 % (11.5-14.5); RDW Standard Deviation 44.5 fL (36.4-46.3)
[2019-08-03 07:22] LABS: BUN Creatinine Ratio 9.5 (10-20); Calcium 8.4 mg/dl (8.5-10.1); Creatinine Clr Calc Pharmacy 82.5 ml/min; Est GFR (African American) 75.8; Est GFR (Non-African American) 65.4; Potassium 3.8 mmol/L (3.5-5.1)
[2019-08-03] MEDS ORDERED: FLUTICASONE/VILANTEROL 200/25MCG 14 PUFFS/INHALER INH SCH (09:00)
[2019-08-03] MEDS ORDERED: LACTOBACILLUS ACIDOPHILUS PO SCH (09:00)
--- NOTE | 2019-08-03 09:54 | Hospitalist Progress Note ---
Date of Service August 03, 2019 Assessment & Plan (1) Sepsis: resuscitated. Cont cipro/flagyl (2) Diverticulitis: acute uncomplicated diverticulitis, responding well to treatment overnight. Surgery ok with progression to clears and possible discharge home today. (3) Current smoker: Contemplative phase, will give nicotine replacement at time of discharge. (4) COPD (chronic obstructive pulmonary disease): stable, no wheezing, sputum changes, coughing or other issues. (5) DVT prophylaxis: SCDs. Full Code Dispo-likely to home later this afternoon as long as she is tolerating food. Adri Cash DO [facility] and Anticipated Discharge Date Admission Date: August 02, 2019 Subjective 64 yo F presented with two days of LLQ pain. She has a h/o renal abscess and felt this might be related to her kidney, so she started cipro at home and she presented to the ER yesterday. She denies fevers or chills overnight and she is hungry. She denies any stool changes. She feels good and is ready to go home. Surgery saw her this morning and was ok with diet advance to clears with dc to home if tolerated afterward. Review of Systems Review of Systems: All systems reviewed & are unremarkable except as noted in Subjective Physical Exam Physical Exam: CONSTITUTIONAL: obese, vitals as above, generally well- appearing EYES: normal conjunctivae, no scleral icterus ENT: external ear and nose normal,MMM RESPIRATORY: clear to auscultation bilaterally, no crackles, rales or wheezes, normal respiratory effort CARDIOVASCULAR: regular rate and rhythm, S1 and 2 heard without murmurs, gallops or rubs, no JVD, no peripheral edema GASTROINTESTINAL: soft, nontender, nondistended, no guarding MUSCULOSKELETAL: strength 5/5 throughout, head is normocephalic and atraumatic, neck supple, normal palpation of chest wall without tenderness SKIN: warm and dry NEUROLOGIC: CN 2-12 grossly intact, normal cognition, no gross focal deficits. PSYCHIATRIC: alert cooperative and oriented to person, place and time. Results & Data Results & Data ([facility]) Vital Signs (Past 12 Hours) Vital Signs Temp Pulse Pulse Resp BP BP Pulse Ox 08/03/19 07:29 84 16 90 08/03/19 07:16 36.9 C 90 20 121/75 90 08/03/19 03:13 37.1 C 95 H 20 124/82 93 08/03/19 03:09 89 16 90 08/03/19 00:03 36.5 C 86 19 130/79 92 08/02/19 23:55 83 16 92 08/02/19 22:30 88 17 114/53 L 92 08/02/19 22:00 89 24 129/74 92 Laboratory Results Short CBC 08/02/19 08/03/19 Range/Units 19:20 06:30 WBC 15.83 H 10.00 (4.8-10.8) K/uL Hgb 14.0 12.3 (12.0-16.0) g/dL Hct 40.7 37.0 (37-47) % Plt Count 251 204 (130-400) K/uL BMP 08/02/19 08/03/19 19:20 06:30 Sodium 137 139 Potassium 4.0 3.8 Chloride 106 109 H Carbon Dioxide 25 26 BUN 10 9 Creatinine 1.06 0.93 Glucose 139 H 117 H Calcium 8.9 8.4 L Cardiac Enzymes 08/02/19 Range/Units 19:20 Troponin I < 0.015 (0-0.045) ng/ml Liver Function 08/02/19 Range/Units 19:20 Total Bilirubin 0.7 (0.2-1) mg/dl AST 11 L (15-37) U/L ALT 34 (12-78) U/L Alkaline Phosphatase 73 (45-117) U/L Albumin 3.5 (3.4-5.0) gm/dl Urine 08/02/19 Range/Units 19:15 Urine Color Yellow Urine Appearance Cloudy A (Clear) Urine pH 5.0 (4.5-7.5) Ur Specific [place] 1.020 (1.000-1.030) Urine Protein 1+ H (Negative) Urine Glucose (UA) Negative (Negative) Medications Administered Current Inpatient Medications Acetaminophen (Tylenol) 650 mg PO Q4H PRN PRN Reason: Pain or Fever Stop: 09/01/19 23:16 Albuterol (Ventolin Hfa) 2 puffs INH QID PRN PRN Reason: Shortness Of Breath Or Wheezing Albuterol (Ventolin 0.5% 2.5mg/0.5ml) 0.63 mg NEB Q4H PRN PRN Reason: shortness of breath Stop: 09/01/19 23:16 Fluticasone/Vilanterol (Breo Ellipta 200/25 Mcg Inh) 1 puffs INH Q24H LILLY Stop: 09/01/19 23:50 Last Admin: 08/03/19 00:16 Dose: Not Given Documented by: Dextrose/Sodium Chloride (D5w And Nss) 1,000 mls @ 125 mls/hr IV .Q8H LILLY Stop: 09/01/19 23:16 Last Infusion: 08/03/19 09:10 Dose: Infused Documented by: Ciprofloxacin (Cipro) 400 mg in 200 mls @ 100 mls/hr IV Q12H LILLY Stop: 08/13/19 00:00 Last Infusion: 08/03/19 04:03 Dose: Infused Documented by: Metronidazole (Flagyl) 500 mg in 100 mls @ 100 mls/hr IV Q8H LILLY Stop: 08/13/19 05:59 Last Infusion: 08/03/19 07:12 Dose: Infused Documented by: Promethazine HCl 12.5 mg/ (Sodium Chloride) 50.5 mls @ 202 mls/hr IV Q6H PRN PRN Reason: Nausea And Vomiting Stop: 09/01/19 23:16 Ipratropium [place] (Atrovent 0.02% 0.5mg/2.5ml) 0.5 mg INH Q4H PRN PRN Reason: shortness of breath Stop: 09/01/19 23:16 Ipratropium [place] (Atrovent 0.02% 0.5mg/2.5ml) 0.5 mg INH Q4R LILLY Stop: 09/01/19 23:44 Last Admin: 08/03/19 07:27 Dose: 0.5 mg Documented by: Levalbuterol HCl (Xopenex 1.25mg/0.5ml Neb) 1.25 mg INH Q4R LILLY Stop: 09/01/19 23:44 Last Admin: 08/03/19 07:27 Dose: 1.25 mg Documented by: Morphine Sulfate (Morphine Sulfate) 3 mg IV Q4H PRN PRN Reason: severe pain Stop: 08/16/19 23:16 Tramadol HCl (Ultram) 50 mg PO Q4H PRN PRN Reason: Pain Stop: 09/01/19 23:16 (1) Sepsis Sepsis acute organ dysfunction status: unspecified Sepsis type: sepsis due to unspecified organism Qualified Code(s): A41.9 - Sepsis, unspecified organism
--- NOTE | 2019-08-03 10:38 | Surgery Consultation ---
Date of Consultation August 03, 2019 Assessment & Plan (1) Diverticulitis: pt is a 64 year-old female who was admitted to hospital for sigmoid diverticulitis, IMP: sigmoid diverticulitis Plan, I agree with conservative treatment, antibiotic, clear diet today, no surgical indication now, possible discharge home today or tomorrow with po antibiotic, if pt tolerated diet, History of Present Illness Attending Physician: Adri Cash DO History of Present Illness 64-year-old female with history of COPD continue with left lower quadrant pain x2 days. Patient reports 2-day history of left lower quadrant pain associated with nausea and vomiting. No fevers or chills, shortness of breath, cough, sputum production. No melena or hematochezia. No problems with urination. At the ER, patient was received febrile 38.1, tachycardic at 111, blood pressure stable. Positive leukocytosis 15,800 CT abdomen pelvis showed: 1. There is moderate colonic diverticulosis with evidence of acute sigmoid diverticulitis. 2. No intraperitoneal free air is identified and there is no organized fluid collection to suggest abscess. 3. The left ovary is mildly enlarged and located adjacent to the acute diverticulitis. This indicates a reactive oophoritis. 4. Hepatomegaly and hepatic steatosis. 5. Mild splenomegaly. 6. Right-sided nephrolithiasis. 7. Additional findings as above. On exam the patient reports mild left lower quadrant discomfort. No other symptoms I ( Zoltan Sinha mD ) got a call for consult sigmoid diverticulitis, I reviewed pt's H/P, labs, CT scan with pt, now pt has no abdominal pain, no nausea, no vo miting, no fever. Primary Care Provider: Christopher Torres MD Allergies Allergy/AdvReac Type Severity Reaction Status Date / Time Penicillins Allergy Intermediate RESP. Verified 08/02/19 21:12 ISSUES Sulfa (Sulfonamide Allergy Intermediate RESP. Verified 08/02/19 21:12 Antibiotics) ISSUES Home Medications Home Medications Medication Instructions Recorded Confirmed Type Lactobacillus acidophilus 1 cap PO QAM 01/09/18 08/02/19 History [Probiotic] albuterol sulfate 0.63 mg INHALATION Q4H 01/09/18 08/02/19 History albuterol sulfate [ProAir HFA] 2 puff INHALATION QID PRN 01/09/18 08/02/19 History aspirin [Aspir-81] 162 mg PO HS 01/09/18 08/02/19 History cholecalciferol (vitamin D3) 1,000 unit PO HS 01/09/18 08/02/19 History [Vitamin D3] ipratropium bromide 2.5 ml INHALATION Q4H 01/09/18 08/02/19 History magnesium 100 mg PO QAM PRN 01/09/18 08/02/19 History omega-3 fatty acids 1,000 mg PO HS 01/09/18 08/02/19 History CPAP Machine #10 liter 04/04/19 04/04/19 Rx fluticasone 500 mcg-salmeterol 50 1 inh INHALATION BID #60 ea 04/04/19 08/02/19 Rx mcg/dose blistr powdr for inhalation Past Med/Surg History Medical History (Updated 08/02/19 @ 22:29 by David Baumann DO) Acute pyelonephritis (Inactive) COPD (chronic obstructive pulmonary disease) (Chronic) E. coli septicemia Fever GERD (gastroesophageal reflux disease) (Chronic) Gram negative septicemia H/O Clostridium difficile infection (Chronic) Herpes labialis Leukocytosis (Acute) Obstructive sleep apnea of adult Renal abscess Sepsis (Acute) Surgical History H/O colonoscopy (Chronic) "11/2013- hyperplastic polyp, diverticulosis" S/P (Resolved) "1982" S/P cholecystectomy (Resolved) Social History Preferred Language: Dominican marital status: Current Living Situation: Alone current occupational status: employed Feels Safe at Home: Yes Smoking Status: Current every day smoker Review of Systems Review of Systems: All systems reviewed & are unremarkable except as noted in HPI & below Allergies Allergy/AdvReac Type Severity Reaction Status Date / Time Penicillins Allergy Intermediate RESP. Verified 08/02/19 21:12 ISSUES Sulfa (Sulfonamide Allergy Intermediate RESP. Verified 08/02/19 21:12 Antibiotics) ISSUES Home Medications Home Medications Medication Instructions Recorded Confirmed Type Lactobacillus acidophilus 1 cap PO QAM 01/09/18 08/02/19 History [Probiotic] albuterol sulfate 0.63 mg INHALATION Q4H 01/09/18 08/02/19 History albuterol sulfate [ProAir HFA] 2 puff INHALATION QID PRN 01/09/18 08/02/19 History aspirin [Aspir-81] 162 mg PO HS 01/09/18 08/02/19 History cholecalciferol (vitamin D3) 1,000 unit PO HS 01/09/18 08/02/19 History [Vitamin D3] ipratropium bromide 2.5 ml INHALATION Q4H 01/09/18 08/02/19 History magnesium 100 mg PO QAM PRN 01/09/18 08/02/19 History omega-3 fatty acids 1,000 mg PO HS 01/09/18 08/02/19 History CPAP Machine #10 liter 04/04/19 04/04/19 Rx fluticasone 500 mcg-salmeterol 50 1 inh INHALATION BID #60 ea 04/04/19 08/02/19 Rx mcg/dose blistr powdr for inhalation Patient History Medical History (Updated 08/02/19 @ 22:29 by David Baumann DO) Acute pyelonephritis (Inactive) COPD (chronic obstructive pulmonary disease) (Chronic) E. 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 Beliefs That Will Affect Care: None marital status: Current Living Situation: Other current occupational status: employed Other Information That Helps Us Care for You: No Feels Safe at Home: Yes Safety Concerns: Feels Safe At This Time Smoking Status: Current every day smoker Tobacco Type: cigarettes ; Do You Dip or Chew Tobacco: No ; Second Hand Exposure: No ; Tobacco Cessation Education R equested by Patient: No Hx Alcohol Use: No Hx Substance Use: No Review of Systems Review of Systems: All systems reviewed & are unremarkable except as noted in HPI & below Constitutional: as per Subjective / HPI Eyes: as per Subjective / HPI Ear, Nose, Mouth, Throat: as per Subjective / HPI Respiratory: as per Subjective / HPI COPD Cardiovascular: as per Subjective / HPI Gastrointestinal: as per Subjective / HPI GERD Genitourinary: renal abscess Musculoskeletal: as per Subjective / HPI Integumentary: as per Subjective / HPI Neurologic: as per Subjective / HPI Psychiatric: as per Subjective / HPI Endocrine: as per Subjective / HPI Hematologic / Lymphatic: sepsis Physical Exam Constitutional: WD/WN, vitals as above well developed and well nourished Eyes: PERRL, conjunctivae normal, anicteric sclerae ENMT: external ear and nose normal, oropharynx normal Neck: trachea midline, no thyromegaly Respiratory: normal respiratory effort, lungs clear to auscultation Cardiovascular: RRR, no murmur, no edema Rate/Rhythm: regular rate and regular rhythm Gastrointestinal (Abdomen): normal bowel sounds, soft, nontender, no hepatosplenomegaly Percussion/Palpation: abdomen soft NT, ND BS + Musculoskeletal: no cyanosis or clubbing, extremities motor strength 5/5 Skin: no rashes, warm and dry Neurologic: patellar DTR's 2+ bilat, sensation intact Psychiatric: Orientation: alert and oriented x 3 Results & Data Vital Signs (Past 12 Hours) Vital Signs Temp Pulse Resp BP Pulse Ox 08/03/19 07:29 84 16 90 08/03/19 07:16 36.9 C 90 20 121/75 90 08/03/19 03:13 37.1 C 95 H 20 124/82 93 08/03/19 03:09 89 16 90 08/03/19 00:03 36.5 C 86 19 130/79 92 08/02/19 23:55 83 16 92 Laboratory Results Abnormal lab results 08/02/19 08/02/19 08/02/19 Range/Units 19:15 19:20 19:20 WBC 15.83 H (4.8-10.8) K/uL RBC (4.2-5.4) M/uL Immature Gran # (Auto) 0.05 H (0.00-0.02) K/uL Neut # (Auto) 11.87 H (1.4-6.5) K/uL [place] # (Auto) 1.43 H (0.11-0.59) K/uL Chloride (98-107) mmol/L BUN/Creatinine Ratio 9.5 L (10-20) Glucose 139 H (70-99) mg/dl Calcium (8.5-10.1) mg/dl AST 11 L (15-37) U/L Globulin 4.2 H (2.5-4.0) gm/dl Albumin/Globulin Ratio 0.8 L (0.9-2) Urine Appearance Cloudy A (Clear) Urine Protein 1+ H (Negative) Urine Blood 1+ H (Negative) U Hyaline Cast (Auto) 5-10 H (0-5) /lpf U Epithel Cells (Auto) >30 H (0-5) /lpf 08/03/19 08/03/19 Range/Units 06:30 06:30 WBC (4.8-10.8) K/uL RBC 4.10 L (4.2-5.4) M/uL Immature Gran # (Auto) 0.04 H (0.00-0.02) K/uL Neut # (Auto) 6.69 H (1.4-6.5) K/uL [place] # (Auto) 1.04 H (0.11-0.59) K/uL Chloride 109 H (98-107) mmol/L BUN/Creatinine Ratio 9.5 L (10-20) Glucose 117 H (70-99) mg/dl Calcium 8.4 L (8.5-10.1) mg/dl AST (15-37) U/L Globulin (2.5-4.0) gm/dl Albumin/Globulin Ratio (0.9-2) Urine Appearance (Clear) Urine Protein (Negative) Urine Blood (Negative) U Hyaline Cast (Auto) (0-5) /lpf U Epithel Cells (Auto) (0-5) /lpf Diagnostic Findings CT SCAN OF THE ABDOMEN AND PELVIS WITH IV CONTRAST CLINICAL HISTORY: Lower abdominal pain. COMPARISON STUDY: Abdominal CT dated 01/09/2018. TECHNIQUE: Following the IV administration of 94 cc of Optiray 320, CT scan of the abdomen and pelvis is performed from the lung bases to the proximal femora. Images are reviewed in the axial, sagittal, and coronal planes. IV contrast was administered without complication. A dose lowering technique was utilized adhering to the principles of ALARA. CT DOSE: 1430.55 mGy.cm FINDINGS: Lung bases: The heart is normal in size and without pericardial effusion. The lung bases are clear noting bibasilar scarring/atelectasis. Liver: The contrast-enhanced liver is enlarged, measuring 20.5 cm in length. The liver demonstrates diffusely diminished attenuation consistent with hepatic steatosis. There is no intrahepatic biliary ductal dilatation. The hepatic veins and portal veins are patent. Gallbladder: Surgically absent. Spleen: Spleen is mildly enlarged measuring 14.1 cm in length. Pancreas: Moderately atrophic and grossly unremarkable. Adrenal glands: A 1.9 cm left adrenal adenoma is unchanged. The right adrenal gland is normal in appearance. Kidneys: The contrast enhanced kidneys demonstrate mild cortical atrophy and are without hydronephrosis. The kidneys enhance symmetrically. A 3 mm nonobstructing calculus is seen in the right lower pole. Cortical scarring is noted in the left kidney. A subcentimeter cortical hypodensity in the left right kidney likely represents a cyst but is too small for definitive characterization. Abdominal vasculature: The abdominal aorta is normal in course and caliber. Ectasia of the celiac trunk is unchanged. This measures up to 12 mm in diameter Bowel: There is moderate colonic diverticulosis. There is wall thickening with pericolonic inflammation and trace fluid seen involving the sigmoid colon consistent with acute diverticulitis. No organized fluid collection is seen to suggest abscess. No bowel obstruction is identified. The appendix is not visualized. Peritoneum: There is no intraperitoneal free air or abdominal ascites. Lymphadenopathy: None. Pelvic viscera: The bladder and uterus are normal as imaged. The left ovary is mildly enlarged, likely representing a reactive oophoritis. Skeletal structures: The skeletal structures are osteopenic. No lytic or blastic lesions are seen. IMPRESSION: 1. There is moderate colonic diverticulosis with evidence of acute sigmoid di verticulitis. 2. No intraperitoneal free air is identified and there is no organized fluid collection to suggest abscess. 3. The left ovary is mildly enlarged and located adjacent to the acute diver ticulitis. This indicates a reactive oophoritis. 4. Hepatomegaly and hepatic steatosis. 5. Mild splenomegaly. 6. Right-sided nephrolithiasis. 7. Additional findings as above.
--- NOTE | 2019-08-03 14:31 | Discharge Summary ---
Date of Service August 03, 2019 Admission HPI Per Admitting Provider 64-year-old female with history of COPD continue with left lower quadrant pain x2 days. Patient reports 2-day history of left lower quadrant pain associated with nausea and vomiting. No fevers or chills, shortness of breath, cough, sputum production. No melena or hematochezia. No problems with urination. At the ER, patient was received febrile 38.1, tachycardic at 111, blood pressure stable. Positive leukocytosis 15,800 CT abdomen pelvis showed: 1. There is moderate colonic diverticulosis with evidence of acute sigmoid diverticulitis. 2. No intraperitoneal free air is identified and there is no organized fluid c ollection to suggest abscess. 3. The left ovary is mildly enlarged and located adjacent to the acute diverticulitis. This indicates a reactive oophoritis. 4. Hepatomegaly and hepatic steatosis. 5. Mild splenomegaly. 6. Right-sided nephrolithiasis. 7. Additional findings as above. On exam the patient reports mild left lower quadrant discomfort. No other symptoms Primary Care Provider: Christopher Torres MD Admission Exam Per Admitting Provider General- oriented x 3, not in distress, speaks in sentences with no effort or ac cessory muscle use Head- atraumatic Eyes- PERRL, EOMI, anicteric ENT- oropharynx clear Neck- supple, no JVD, no adenopathy, no thyromegaly; carotids +2/2, no bruits appreciated Lungs-mild wheeze BL Heart- normal rate, regular rhythm; no murmur, no gallop, no rub appreciated Abdomen- normal bowel sounds, nondistended, soft, positive mild tenderness left lower quadrant, no masses or hepatosplenomegaly Extremities- no pretibial edema, no calf tenderness; peripheral pulses intact Neuro- alert, oriented x 3; CN 2-12 grossly intact; motor 5/5 bilaterally;sensation 100% on all extremities; no other gross focal neurologic deficits Skin- warm & dry Principal Diagnosis Sepsis 2/2 acute diverticulitis-resuscitated Smoker Discharge Exam CONSTITUTIONAL: obese, vitals as above, generally well-appearing EYES: normal conjunctivae, no scleral icterus ENT: external ear and nose normal,MMM RESPIRATORY: clear to auscultation bilaterally, no crackles, rales or wheezes, normal respiratory effort CARDIOVASCULAR: regular rate and rhythm, S1 and 2 heard without murmurs, gallops or rubs, no JVD, no peripheral edema GASTROINTESTINAL: soft, nontender, nondistended, no guarding MUSCULOSKELETAL: strength 5/5 throughout, head is normocephalic and atraumatic, neck supple, normal palpation of chest wall without tenderness SKIN: warm and dry NEUROLOGIC: CN 2-12 grossly intact, normal cognition, no gross focal deficits. PSYCHIATRIC: alert cooperative and oriented to person, place and time. Discharge Data Allergies Allergy/AdvReac Type Severity Reaction Status Date / Time Penicillins Allergy Intermediate RESP. Verified 08/02/19 21:12 ISSUES Sulfa (Sulfonamide Allergy Intermediate RESP. Verified 08/02/19 21:12 Antibiotics) ISSUES Consultations 08/02/19 20:55 ED Decision to Admit Stat 08/02/19 23:17 Consult General Surgery Routine Ordered Studies 08/02/19 19:26 CT abd pelvis IV con only Stat Hospital Course (1) Sepsis: (2) Diverticulitis: (3) Current smoker: The patient was admitted to the hospitalist service and placed on ciprofloxacin and Flagyl IV. She was resuscitated from a sepsis standpoint and remained afebrile and hemodynamically stable overnight. She was kept n.p.o. and general surgery was consulted. The following morning her tenderness had resolved, she reported feeling hungry without nausea and her abdominal exam revealed no evidence of peritonitis. General surgery cleared her for clear liquid diet and if she tolerated that to progress home. She did well with food having no nausea or pain. Leukocytosis resolved on the morning of discharge. At time of discharge she was hemodynamically stable and afebrile and tolerating p.o. She was mentating and ambulating at baseline and physical exam was unremarkable. She was given instruction to continue clear liquids for the rest of today and advance diet to solid foods tomorrow as tolerated. Close primary care follow-up was recommended. The patient was discharged on 10 days of ciprofloxacin and Flagyl therapy. Of note, she is in the contemplative phase of quitting tobacco. She was given a prescription for Nicorette gum at time of discharge and strongly encouraged to quit smoking. Total Time Total Time Spent Total Time Spent (In Minutes): 60 Total Time Includes: Examination of the Patient, Discharge Planning, Medication Reconciliation and Communication With Other Providers Discharge Plan Discharge Items Patient Disposition: Home - Self-Care Reason For Visit: SEPSIS, DIVERTICULITIS Discharge Diagnosis: Sepsis 2/2 acute diverticulitis-resuscitated Smoker Condition on Discharge: Good Health Concerns: Stop Smoking Activity: Resume your previous activity Non-emergency contact: Primary Care Provider Call non-emergency contact if: you have any medication questions, your symptoms worsen, your pain is not controlled, your pain is worsening, your pain is unusual for you, your pain is concerning for you and you have a fever Follow-up/Referrals: Christopher Torres MD [Primary Care Provider] - Diet: Clear liquid Addtl Attending Provider Instructions: Please take all medications as instructed on discharge list below. Please adhere to a clear liquid diet for the rest of today and then advance diet as tolerated to solid foods tomorrow. Please consider seeking medical attention if you develop fever, worsening abdominal pain, severe nausea and vomiting or other concerning symptom. It is recommended that you follow-up with your primary care doctor within 1 week of discharge to ensure you are tolerating the antibiotics without issue and that you are progressing well. You are being given nicotine supplementation to help you quit smoking. Please continue to work with your primary care doctor regarding staying quit. It was a pleasure taking care of you! Please call if you have any questions or problems. You can reach a [facility] hospitalist on duty at [facility] 24 hours a day by calling [phone]. Take care of yourself. Adri Cash, [facility] Hospitalist Pending Studies at Discharge: Yes Studies:: Blood cultures Stand-Alone Forms: My [facility], Smoking Cessation Medications and DC Order Prescriptions: New nicotine (polacrilex) [Nicorette] 4 mg gum 4 mg BUCCAL Q6H PRN (Reason: nicotine cravings) Qty: 50 RF: 0 ciprofloxacin HCl [Cipro] 500 mg tablet 500 mg PO Q12H Qty: 20 RF: 0 metronidazole [Flagyl] 500 mg tablet 500 mg PO Q8H Qty: 30 RF: 0 Continued fluticasone propion-salmeterol [Advair Diskus] 500-50 mcg/dose blister with device 1 inh INHALATION BID Qty: 60 RF: 6 Hold Instructions: trial trelegy (DME) CPAP Machine Misc See Rx Instructions .ROUTE .MEDSUPPLY Qty: 10 RF: 0 albuterol sulfate 0.63 mg/3 mL Solution For Nebulization 0.63 mg INHALATION Q4H RF: 0 omega-3 fatty acids 1,000 mg Capsule 1,000 mg PO HS RF: 0 aspirin [Aspir-81] 81 mg Tablet,Delayed Release (Dr/Ec) 162 mg PO HS RF: 0 albuterol sulfate [ProAir HFA] 90 mcg/actuation Hfa Aerosol Inhaler 2 puff INHALATION QID PRN (Reason: Shortness Of Breath Or Wheezing) RF: 0 ipratropium bromide 0.02 % Solution 2.5 ml INHALATION Q4H RF: 0 cholecalciferol (vitamin D3) [Vitamin D3] 1,000 unit Capsule 1,000 unit PO HS RF: 0 magnesium 200 mg Tablet 100 mg PO QAM PRN (Reason: Restless Legs) RF: 0 Probiotic 10 billion cell Capsule 1 cap PO QAM RF: 0 Discharge Orders: Discharge Order (Routine); Ordered 08/03/19 Ordered By: Adri Cash Admission Data Admit Date/Time: 08/02/19 22:38 Attending Provider: Adri Cash Admit Provider: Jonathon Cruz Primary Care Provider: Christopher Torres Other Providers: Zoltan Sinha ; Peterson Curiel
--- NOTE | 2019-08-04 05:36 | Electrocardiogram Report ---
Test Reason : Blood Pressure : / mmHG Vent. Rate : 093 BPM Atrial Rate : 093 BPM P-R Int : 150 ms QRS Dur : 106 ms QT Int : 378 ms P-R-T Axes : 057 023 047 degrees QTc Int : 469 ms Normal sinus rhythm Low voltage QRS Borderline ECG When compared with ECG of 13-OCT-2015 17:21, No significant change was found Confirmed by Marino Clayton ([id number]) on 08/04/2019 5:36:46 AM Referred By: REFERRED SELF Confirmed By:Marino Clayton
== END 2019-08-03 15:24 | disposition home or self-care (01) | DRG 872 ==
LOC: ED 19:00 → 2N 22:38 → SUATTDRO 22:38 → 2N 22:55

== ENCOUNTER 2021-05-07 18:27 | Observation (INO) ==
[2021-05-07] MEDS ORDERED: ALBUT/IPRATROP 3MG/0.5MG NEB 3 ML VIAL NEB STA (18:43)
[2021-05-07 18:59] LABS: Basophils # (auto) 0.03 K/uL (0-0.2); Basophils % (auto) 0.3 %; Eosinophils # (auto) 0.45 K/uL (0-0.5); Eosinophils % (auto) 4.8 %; Hemoglobin 15.2 g/dL (12.0-16.0); Immature Granulocytes # (auto) 0.03 K/uL (0.00-0.02); Immature Granulocytes % (auto) 0.3 %; Lymphocytes # (auto) 2.19 K/uL (1.2-3.4); Lymphocytes % (auto) 23.4 %; Mean Corpuscular Hemoglobin 31.5 pg (25-34); Mean Corpuscular Hgb Conc 35.3 g/dL (32-36); Mean Corpuscular Volume 89.2 fL (80-100); Mean Platelet Volume 9.9 fL (7.4-10.4); Monocytes # (auto) 0.85 K/uL (0.11-0.59); Monocytes % (auto) 9.1 %; Neutrophils % (auto) 62.1 %; Platelet Count 267 K/uL (130-400); RDW Coefficient of Variation 13.1 % (11.5-14.5); RDW Standard Deviation 43.2 fL (36.4-46.3); Red Blood Count 4.82 M/uL (4.2-5.4); White Blood Count 9.35 K/uL (4.8-10.8)
--- NOTE | 2021-05-07 19:01 | Emergency Department Note ---
Impression & Plan Pneumonia, COPD (chronic obstructive pulmonary disease), Chest pain, Hypoxia ED Provider Note NAME: JOÃO BALDERRAMA AGE: 65 SEX: F : 1955 ARRIVES VIA: Walk-In INFORMANT: Patient, ED PROVIDER(S): Homero Lowery DO CHIEF COMPLAINT: Shortness of breath HPI: The patient is a 65-year-old female who presented to the emergency [facility] for an evaluation of shortness of breath. The patient is a history of COPD. She states that she started feeling worse over the last 48 hours. The patient states that she did see her family doctor recently for a routine visit but at that time was not having the symptoms. She started noticing cough with left-sided chest pain. She states the chest pain is into her upper left clavicular area. She also states that she has significant pain with deep breathing. She states that she has had pleurisy in the past but never only on one side. She denies having any nausea or vomiting. She denies having any lower extremity pain. She denies having any leg swelling. The patient states that her symptoms are moderate and worse with any exertion. The patient states that she has had no hemoptysis or fever. ROS: See above HPI for pertinent positives & negatives. A total of 10 systems reviewed and were otherwise negative. PAST MEDICAL HISTORY: See Below PAST SURGICAL HISTORY: See Below FAMILY HISTORY: See Below SOCIAL HISTORY: See Below HOME MEDICATIONS: See Below ALLERGIES: See Below VITALS: See Below PHYSICAL EXAMINATION: GENERAL: The patient is awake and alert. She is somewhat anxious appearing and appears to be uncomfortable. EYES: The conjunctivae are clear. The pupils are round and reactive. EARS, NOSE, MOUTH AND THROAT: The nose is without any evidence of any deformity. NECK: The neck is nontender and supple. RESPIRATORY: Splinting respirations were noted. There were diminished breath sounds in the left lung field. There was faint wheezing in both upper lung nguyen. There was mild conversational dyspnea but no tachypnea. CARDIOVASCULAR: Regular rate and rhythm noted there no murmurs rubs or gallops normal S1 normal S2. GASTROINTESTINAL: The abdomen is soft. Abdomen is nontender. MUSCULOSKELETAL/EXTREMITIES: There is no evidence of gross deformity full range of motion is noted in the hips and shoulders. SKIN: There is no obvious evidence of any rash. There are no petechiae, pallor or cyanosis noted. NEUROLOGIC: Patient is awake alert and oriented x3 MEDICAL DECISION MAKING: The patient is a 65-year-old female who presented to emergency department for an evaluation of chest pain. The patient describes left-sided chest pain. She has had a history of pleurisy in the past but states this is different. She did not have a fever or significant productive cough however radiographic studies were obtained as well as a D-dimer. D-dimer is elevated. I was very concerned be cause the patient was hypoxic and had very significant chest pain with splinting respirations. CT of the chest was obtained appears to be more consistent with atelectasis and pneumonia and not pulmonary embolism. I discussed the patient's laboratory and radiographic studies with her. Given her findings and oxygen requirement I discussed her case with the on-call [facility] hospitalist. The patient did have blood cultures obtained and was started on IV antibiotics. She also received DuoNeb therapy. Triage Nursing notes reviewed. Prior medical records reviewed Vital Signs: reviewed and remarkable for hypoxia and hypertension. Differential diagnosis: Reactive airway disease, pneumonia, pneumothorax, COPD, CHF, infections, cardiac ischemia, pulmonary embolism, musculoskeletal, gastrointestinal, as well as other pathologies. ER treatment provided: See below Diagnostics interpreted by me: ECG: EKG was obtained in the emergency department. My interpretation is normal sinus rhythm at 85 bpm. There is no ectopy. There is no acute ST segment abnormalities noted. This was compared to a tracing from December 222019. No changes were noted. Cardiac Monitoring: An order was placed for continuous cardiac monitoring. The monitor shows a rate of 86 bpm with sinus rhythm. Laboratory studies: As stated above and show below. Imaging studies: See below Consultation(s): I discussed this case with Dr. Card[facility]. Past Med/Surg History Medical History Acute pyelonephritis COPD (chronic obstructive pulmonary disease) E. coli septicemia Fever GERD (gastroesophageal reflux disease) Gram negative septicemia H/O Clostridium difficile infection Herpes labialis Leukocytosis Obstructive sleep apnea of adult Renal abscess Sepsis Surgical History H/O colonoscopy "11/2013- hyperplastic polyp, diverticulosis" S/P "1982" S/P cholecystectomy Family History Other Cancer Diabetes Gallbladder disease Hypertension Lung disease Social History Smoking Status: Current every day smoker Tobacco Type: Cigarettes Second Hand Exposure: No; Hx Alcohol Use: No Hx Substance Use: No Preferred Language: Yoruba Communication Ability: Effective Glucose And Syrup Weigher Required: No Beliefs That Will Affect Care: None marital status: Current Living Situation: Other current occupational status: employed Feels Safe at Home: Yes Assistive Devices: None Allergies Allergies Allergy/AdvReac Type Severity Reaction Status Date / Time Penicillins Allergy Intermediate RESP. Verified 05/07/21 19:20 ISSUES Sulfa (Sulfonamide Allergy Intermediate RESP. Verified 05/07/21 19:20 Antibiotics) ISSUES Home Meds Home Medications Medication Instructions Recorded Confirmed Lactobacillus acidophilus 10 1 cap PO QAM 01/09/18 05/07/21 billion cell capsule (Probiotic) albuterol sulfate 0.63 mg/3 mL 0.63 mg INHALATION Q4H PRN 01/09/18 05/07/21 solution for nebulization albuterol sulfate 90 mcg/actuation 2 puff INHALATION QID PRN 01/09/18 05/07/21 aerosol inhaler (ProAir HFA) cholecalciferol (vitamin D3) 25 1,000 unit PO HS 01/09/18 05/07/21 mcg (1,000 unit) capsule (Vitamin D3) ipratropium bromide 0.02 % 2.5 ml INHALATION Q4H PRN 01/09/18 05/07/21 solution for inhalation omega-3 fatty acids 1,000 mg 1,000 mg PO HS 01/09/18 05/07/21 capsule aspirin 81 mg tablet,delayed 162 mg PO HS 03/28/21 05/07/21 release magnesium oxide 500 mg tablet 500 mg PO DAILY PRN 03/28/21 05/07/21 ketorolac 10 mg tablet 10 mg PO TID PRN 05/07/21 05/07/21 Previous Rx's Medication Instructions Recorded ibuprofen 600 mg tablet 600 mg PO Q6H PRN #16 tab 12/23/19 nebulizers #1 ea 12/29/20 fluticasone 500 mcg-salmeterol 50 1 inh INHALATION BID #60 ea 03/24/21 mcg/dose blistr powdr for inhalation (Advair Diskus) ondansetron 4 mg disintegrating 4 mg PO Q6H PRN #12 tab 03/28/21 tablet tamsulosin 0.4 mg capsule (Flomax) 0.4 mg PO DAILY #7 cap 03/28/21 Results & Data (ED) Vital Signs Vital Signs - 24 hr 05/07/21 18:30 05/07/21 18:45 05/07/21 18:46 Temperature 36.4 C L Temperature Source Temporal Artery Scan Pulse Rate 106 H Pulse Rate [Apical] Respiratory Rate 18 Respiratory Effort / Characteristics Non-Labored Spontaneous Respiratory Depth Normal Respiratory Pattern Regular Blood Pressure 163/87 H Blood Pressure [Left Arm] Blood Pressure Mean 112 Blood Pressure Mean [Left Arm] Blood Pressure Position Sitting Blood Pressure Position [Left Arm] Pulse Oximetry 90 89 L 93 Oxygen Delivery Method Room Air Room Air Nasal Cannula Oxygen Flow Rate 2 Sepsis Recent Fever Within 48 Hours No Sepsis New/Unexplained Change in Mental Status No Sepsis Action Taken by Nursing No Action Required 05/07/21 19:24 05/07/21 19:26 05/07/21 20:39 Temperature Temperature Source Pulse Rate Pulse Rate [Apical] 86 86 Respiratory Rate 20 20 Respiratory Effort / Characteristics SOB on Exertion Respiratory Depth Respiratory Pattern Blood Pressure Blood Pressure [Left Arm] 141/72 H 159/71 H Blood Pressure Mean Blood Pressure Mean [Left Arm] 95 100 Blood Pressure Position Blood Pressure Position [Left Arm] Sitting Pulse Oximetry 95 93 Oxygen Delivery Method Nasal Cannula Nasal Cannula Oxygen Flow Rate 2 2 Sepsis Recent Fever Within 48 Hours Sepsis New/Unexplained Change in Mental Status Sepsis Action Taken by Long Term Medications Current Medication List: was personally reviewed by me Laboratory Data Attestation: I reviewed the patient's lab results. Result diagrams: 05/07/21 18:45 05/07/21 18:45 Lab Results 05/07/21 05/07/21 05/07/21 Range/Units 18:45 18:45 18:45 WBC 9.35 (4.8-10.8) K/uL RBC 4.82 (4.2-5.4) M/uL Hgb 15.2 (12.0-16.0) g/dL Hct 43.0 (37-47) % MCV 89.2 (80-100) fL MCH 31.5 (25-34) pg MCHC 35.3 (32-36) g/dL RDW Std Deviation 43.2 (36.4-46.3) fL RDW Coeff of [place] 13.1 (11.5-14.5) % Plt Count 267 (130-400) K/uL MPV 9.9 (7.4-10.4) fL Immature Gran % (Auto) 0.3 % Neut % (Auto) 62.1 % Lymph % (Auto) 23.4 % [place] % (Auto) 9.1 % Eos % (Auto) 4.8 % Baso % (Auto) 0.3 % Neut # (Auto) 5.80 (1.4-6.5) K/uL Lymph # (Auto) 2.19 (1.2-3.4) K/uL [place] # (Auto) 0.85 H (0.11-0.59) K/uL Eos # (Auto) 0.45 (0-0.5) K/uL Baso # (Auto) 0.03 (0-0.2) K/uL Immature Gran # (Auto) 0.03 H (0.00-0.02) K/uL PT 11.0 (9.0-12.0) Seconds INR 1.0 (0.9-1.1) APTT 23.4 (21.0-31.0) Seconds PTT Ratio 0.9 D-Dimer 620 H* (0-500) ug/L FEU VBG pH (7.36-7.41) VBG pCO2 (38-50) mmHg VBG pO2 mmHg VBG HCO3 mmol/L VBG O2 Saturation % VBG Base Excess mEq/L Barometric Pressure mm/Hg Sodium 140 (136-145) mmol/L Potassium 3.7 (3.5-5.1) mmol/L Chloride 107 (98-107) mmol/L Carbon Dioxide 26 (21-32) mmol/L Anion Gap 7 (3-11) BUN 11 (6-23) mg/dl Creatinine 0.76 (0.6-1.2) mg/dl Est Cr Clr Drug Dosing 96.6 ml/min Est GFR ( Amer) 96.1 ml/min Est GFR (Non-Af Amer) 82.9 ml/min BUN/Creatinine Ratio 14.5 (10-20) Glucose 132 H (70-99(Fasting)) mg/dl Calcium 9.4 (8.5-10.1) mg/dl Magnesium 1.7 (1.7-2.4) mg/dl Total Bilirubin 0.5 (0.2-1.0) mg/dl AST 20 (13-39) U/L ALT 32 (7-52) U/L Alkaline Phosphatase 56 (34-104) U/L Troponin I < 0.03 (0-0.04) ng/ml Total Protein 7.4 (6.0-8.3) gm/dl Albumin 4.0 (3.4-5.0) gm/dl Globulin 3.4 (2.5-4.0) gm/dl Albumin/Globulin Ratio 1.2 (0.9-2) Influ A Molecular Assay (Negative) Influ B Molecular Assay (Negative) SARS-CoV-2, RNA, NAAT (NEGATIVE) 05/07/21 05/07/21 05/07/21 Range/Units 18:45 19:16 19:16 WBC (4.8-10.8) K/uL RBC (4.2-5.4) M/uL Hgb (12.0-16.0) g/dL Hct (37-47) % MCV (80-100) fL MCH (25-34) pg MCHC (32-36) g/dL RDW Std Deviation (36.4-46.3) fL RDW Coeff of [place] (11.5-14.5) % Plt Count (130-400) K/uL MPV (7.4-10.4) fL Immature Gran % (Auto) % Neut % (Auto) % Lymph % (Auto) % [place] % (Auto) % Eos % (Auto) % Baso % (Auto) % Neut # (Auto) (1.4-6.5) K/uL Lymph # (Auto) (1.2-3.4) K/uL [place] # (Auto) (0.11-0.59) K/uL Eos # (Auto) (0-0.5) K/uL Baso # (Auto) (0-0.2) K/uL Immature Gran # (Auto) (0.00-0.02) K/uL PT (9.0-12.0) Seconds INR (0.9-1.1) APTT (21.0-31.0) Seconds PTT Ratio D-Dimer (0-500) ug/L FEU VBG pH 7.41 (7.36-7.41) VBG pCO2 44 (38-50) mmHg VBG pO2 36 mmHg VBG HCO3 27 mmol/L VBG O2 Saturation 67.8 % VBG Base Excess 1.8 mEq/L Barometric Pressure 726.0 mm/Hg Sodium (136-145) mmol/L Potassium (3.5-5.1) mmol/L Chloride (98-107) mmol/L Carbon Dioxide (21-32) mmol/L Anion Gap (3-11) BUN (6-23) mg/dl Creatinine (0.6-1.2) mg/dl Est Cr Clr Drug Dosing ml/min Est GFR ( Amer) ml/min Est GFR (Non-Af Amer) ml/min BUN/Creatinine Ratio (10-20) Glucose (70-99(Fasting)) mg/dl Calcium (8.5-10.1) mg/dl Magnesium (1.7-2.4) mg/dl Total Bilirubin (0.2-1.0) mg/dl AST (13-39) U/L ALT (7-52) U/L Alkaline Phosphatase (34-104) U/L Troponin I (0-0.04) ng/ml Total Protein (6.0-8.3) gm/dl Albumin (3.4-5.0) gm/dl Globulin (2.5-4.0) gm/dl Albumin/Globulin Ratio (0.9-2) Influ A Molecular Assay Negative (Negative) Influ B Molecular Assay Negative (Negative) SARS-CoV-2, RNA, NAAT NEGATIVE (NEGATIVE) Administered Medications Discontinued Medications Albuterol (Albut/Ipratrop 3mg/0.5mg Neb 3 Ml Vial) 3 ml NEB NOW STA; Protocol Stop: 05/07/21 18:44 Last Admin: 05/07/21 19:02 Dose: 3 ml Documented by: [id number] Ceftriaxone Sodium (Rocephin) 1,000 mg in 50 mls @ 100 mls/hr IV NOW STA Stop: 05/07/21 20:36 Last Admin: 05/07/21 20:36 Dose: 100 mls/hr Documented by: [id number] Imaging Data Radiologist's Impression: Chest X-Ray 05/07/21 18:39 XR chest 1V portable HISTORY: Dyspnea COMPARISON: Chest 12/23/2019. FINDINGS: Mild emphysema. No pneumothorax. No pleural effusions. The cardiac silhouette remains borderline enlarged. Mild diffuse interstitial thickening which is likely chronic. No evidence for pulmonary edema. Increased markings within the left lung base. IMPRESSION: Increased markings within the left lung base. This could represent atelectasis or developing pneumonia. ACT 112: Negative or not required by law. Electronically signed by: Sreedhar Chu M.D. 05/07/2021 7:09 PM Patient: JOÃO BALDERRAMA (Female) : 57 Status: ER Date: 05/07/21 20:04 Room #: History: fall hit post head lac to posthead cough sob copd Slices: [id number] Priors: Tech: Cade Uribe @ [phone] Exams: CTA CHEST Contrast: IV Amt: 120 ml optiray Accession Numbers: [id number] Referring Physician: REFERRED SELF Preliminary Findings Only See Final Report For Complete Findings CTA CHEST: Impression: No pulmonary embolism. Left lower lobe collapse. Superimposed infection or tumor are not excluded. Mild emphysematous change of the lungs. Stable appearance of sub-4 mm nodular opacities in the lungs compared to 01/13/[address] Radiologist: Ford Katz MD Study ready at 20:21 and initial results transmitted at 20:31 Discharge Plan Visit Data Chief Complaint: Shortness of Breath/Dyspnea Stated Complaint: chest pain, sob, copd ED Provider: Homero Lowery Discharge Problem: Pneumonia, COPD (chronic obstructive pulmonary disease), Chest pain, Hypoxia Patient Disposition: Being Evaluated by Hospitalist Forms Stand Alone Forms: My [facility] Prescriptions Prescriptions: No Action fluticasone propion-salmeterol [Advair Diskus] 500-50 mcg/dose blister with device 1 inh INHALATION BID Qty: 60 RF: 6 Hold Instructions: trial trelegy (DME) nebulizers Misc See Rx Instructions miscellaneous .MEDSUPPLY Qty: 1 RF: 5 albuterol sulfate 0.63 mg/3 mL Solution For Nebulization 0.63 mg INHALATION Q4H PRN (Reason: Shortness Of Breath) RF: 0 omega-3 fatty acids 1,000 mg Capsule 1,000 mg PO HS RF: 0 albuterol sulfate [ProAir HFA] 90 mcg/actuation Hfa Aerosol Inhaler 2 puff INHALATION QID PRN (Reason: Shortness Of Breath Or Wheezing) RF: 0 ipratropium bromide 0.02 % Solution 2.5 ml INHALATION Q4H PRN (Reason: Shortness Of Breath) RF: 0 cholecalciferol (vitamin D3) [Vitamin D3] 1,000 unit Capsule 1,000 unit PO HS RF: 0 Probiotic 10 billion cell Capsule 1 cap PO QAM RF: 0 ibuprofen 600 mg tablet 600 mg PO Q6H PRN (Reason: pain) Qty: 16 RF: 0 aspirin 81 mg Tablet,Delayed Release (Dr/Ec) 162 mg PO HS RF: 0 magnesium oxide 500 mg Tablet 500 mg PO DAILY PRN (Reason: LEG CRAMPS) RF: 0 ondansetron 4 mg tablet,disintegrating 4 mg PO Q6H PRN (Reason: nausea and vomiting) Qty: 12 RF: 0 tamsulosin [Flomax] 0.4 mg capsule 0.4 mg PO DAILY Qty: 7 RF: 0 ketorolac 10 mg tablet 10 mg PO TID PRN (Reason: Pain) RF: 0 Referrals Referrals: Meghan Watts MD [Primary Care Provider] -
--- NOTE | 2021-05-07 19:10 | XRay Report ---
XR chest 1V portable HISTORY: Dyspnea COMPARISON: Chest 12/23/2019. FINDINGS: Mild emphysema. No pneumothorax. No pleural effusions. The cardiac silhouette remains borde rline enlarged. Mild diffuse interstitial thickening which is likely chronic. No evidence for pulmona ry edema. Increased markings within the left lung base. IMPRESSION: Increased markings within the left lung base. This could represent atelectasis or developing pneumoni a. ACT 112: Negative or not required by law. Electronically signed by: Sreedhar Chu M.D. 05/07/2021 7:09 PM
[2021-05-07 19:11] LABS: Base Excess VBG 1.8 mEq/L; Oxygen Saturation VBG 67.8 %; pH VBG 7.41 (7.36-7.41)
[2021-05-07 19:17] LABS: Partial Thromboplastin Ratio 0.9; Partial Thromboplastin Time 23.4 Seconds (21.0-31.0)
[2021-05-07 19:19] LABS: D Dimer 620 ug/L FEU (0-500)
[2021-05-07 19:24] LABS: Troponin I < 0.03 ng/ml (0-0.04)
[2021-05-07 19:25] LABS: Alanine Aminotransferase 32 U/L (7-52); Albumin Globulin Ratio 1.2 (0.9-2); Alkaline Phosphatase 56 U/L (34-104); Anion Gap 7 (3-11); Aspartate Aminotransferase 20 U/L (13-39); BUN Creatinine Ratio 14.5 (10-20); Bilirubin,Total 0.5 mg/dl (0.2-1.0); Blood Urea Nitrogen 11 mg/dl (6-23); Calcium 9.4 mg/dl (8.5-10.1); Carbon Dioxide 26 mmol/L (21-32); Chloride 107 mmol/L (98-107); Creatinine Clr Calc Pharmacy 96.6 ml/min; Est GFR (African American) 96.1 ml/min; Est GFR (Non-African American) 82.9 ml/min; Globulin 3.4 gm/dl (2.5-4.0); Glucose 132 mg/dl (70-99(Fasting)); Magnesium 1.7 mg/dl (1.7-2.4); Potassium 3.7 mmol/L (3.5-5.1); Sodium 140 mmol/L (136-145); Total Protein 7.4 gm/dl (6.0-8.3)
[2021-05-07 19:40] LABS: Influenza A virus by PCR Negative (Negative); Influenza B virus by PCR Negative (Negative)
[2021-05-07] MEDS ORDERED: OPTIRAY 320 125ml IV ONE (19:55)
[2021-05-07] MEDS ORDERED: cefTRIAXone SODIUM 1,000 MG/50 ML BAG IV STA (20:07)
--- NOTE | 2021-05-07 21:52 | History & Physical Report ---
Date of Service May 07, 2021 Assessment & Plan (1) Pneumonia: Plan: CTA chest on admission show a dense, LLL pneumonia by my read. No PE. Stat rad reads it as "LLL collapse" with concern for infection vs. tumor. She did have screening lung CT in 12/2020 without any concerning nodules, making tumor less likely. Will need to f/u with pulmonology to ensure resolution. - Continue ceftriaxone/azithromycin -> No recent hospitalizations to suggest HCAP. - Will get procalcitonin - DuoNebs standing and PRN - Mildly hypoxemic on admission - Continue supplemental O2. Presently SpO2 > 93% on 2L NC. Breathing comfortably. - Will need to follow up official AM read. Could consider flutter valve or chest physiotherapy or consider pulmonology consult if official read agrees with lung collapse. Given her stability at this time, not urgent overnight. (2) COPD (chronic obstructive pulmonary disease): Plan: 40+ pack-year smoking history. Discussed cessation, patient is pre- contemplative. Presently has good air movement and minimal wheezing (at baseline per patient). Do *not* think she is in exacerbation. - Continue Advair or formulary equivalent (patient reports only taking PRN; we discussed how maintenance inhaler is meant to be taken every day and nebulizers only as needed and minimized as able). - Declined nicotine patch - Hold steroids - DuoNebs as above (3) Diabetes: Plan: Recently diagnosed by PCP. She believes A1c is ~7%. Not presently on any meds yet. Giving diet/lifestyle 1-2 months. - Sliding scale insulin (low-dose) ACHS - Check A1c in AM (4) Obstructive sleep apnea of adult: Plan: Previously diagnosed. Does not use CPAP at home. Does not have a machine. - Monitor (5) GERD (gastroesophageal reflux disease): Plan: Only occasional use of PPI at home per patient. - Mylanta PRN (6) DVT prophylaxis: Plan: Lovenox 40 mg SQ daily Conditional code - Patient ok with CPR & cardioversion, but does not want b reathing tube/ventilator even if she dies without it. Willing to have 1-2 rounds of CPR, as I stated that after that, she would need breathing tube to continue. Patient awake & alert and able to make this decision for herself. History of Present Illness Chief Complaint: Cough, shortness of breath Primary Care Provider: Meghan Watts MD 65yo F w/ hx of COPD & kidney stones who presents with cough and shortness of breath. She was in her normal state of health on , but yesterday (Sunday) began to have some coughing. It was a dry cough, without any sputum production. She associates it with some shortness of breath, though no increase in her usual wheezing. Also reports some loss of appetite, but otherwise, no positive ROS. She denies any recent hospitalizations or any vomiting/aspiration. No fevers/chills, no chest pain (apart from coughing), no abdominal pain, nausea, or vomiting, no urinary issues, no diarrhea/constipation. Allergies Allergy/AdvReac Type Severity Reaction Status Date / Time Penicillins Allergy Intermediate RESP. Verified 05/07/21 19:20 ISSUES Sulfa (Sulfonamide Allergy Intermediate RESP. Verified 05/07/21 19:20 Antibiotics) ISSUES Home Medications Medication Instructions Recorded Confirmed Type Lactobacillus acidophilus 10 1 cap PO QAM 01/09/18 05/07/21 History billion cell capsule (Probiotic) albuterol sulfate 0.63 mg/3 mL 0.63 mg INHALATION Q4H PRN 01/09/18 05/07/21 History solution for nebulization albuterol sulfate 90 mcg/actuation 2 puff INHALATION QID PRN 01/09/18 05/07/21 History aerosol inhaler (ProAir HFA) cholecalciferol (vitamin D3) 25 1,000 unit PO HS 01/09/18 05/07/21 History mcg (1,000 unit) capsule (Vitamin D3) ipratropium bromide 0.02 % 2.5 ml INHALATION Q4H PRN 01/09/18 05/07/21 History solution for inhalation omega-3 fatty acids 1,000 mg 1,000 mg PO HS 01/09/18 05/07/21 History capsule ibuprofen 600 mg tablet 600 mg PO Q6H PRN #16 tab 12/23/19 05/07/21 Rx nebulizers #1 ea 12/29/20 12/29/20 Rx fluticasone 500 mcg-salmeterol 50 1 inh INHALATION BID #60 ea 03/24/21 05/07/21 Rx mcg/dose blistr powdr for inhalation (Advair Diskus) aspirin 81 mg tablet,delayed 162 mg PO HS 03/28/21 05/07/21 History release magnesium oxide 500 mg tablet 500 mg PO DAILY PRN 03/28/21 05/07/21 History ondansetron 4 mg disintegrating 4 mg PO Q6H PRN #12 tab 03/28/21 05/07/21 Rx tablet ketorolac 10 mg tablet 10 mg PO TID PRN 05/07/21 05/07/21 History Past Med/Surg History Medical History Acute pyelonephritis COPD (chronic obstructive pulmonary disease) Diabetes E. coli septicemia Fever GERD (gastroesophageal reflux disease) Gram negative septicemia H/O Clostridium difficile infection Herpes labialis Leukocytosis Obstructive sleep apnea of adult Renal abscess Sepsis Surgical History H/O colonoscopy "11/2013- hyperplastic polyp, diverticulosis" S/P "1982" S/P cholecystectomy Family History Other Cancer Diabetes Gallbladder disease Hypertension Lung disease Social History Smoking Status: Current every day smoker Tobacco Type: Cigarettes Second Hand Exposure: No; Hx Alcohol Use: No Hx Substance Use: No Preferred Language: Portuguese Communication Ability: Effective Client Experience Specialist Required: No Beliefs That Will Affect Care: None marital status: Current Living Situation: Other current occupational status: employed Feels Safe at Home: Yes Assistive Devices: None Review of Systems Review of Systems: All systems reviewed & are unremarkable except as noted in HPI & below Physical Exam Constitutional: WD/WN, vitals as above Eyes: EOM intact bilaterally; no conjunctival abnormality ENMT: external ear and nose normal, oropharynx normal Neck: trachea midline, no thyromegaly normal visual inspection Respiratory: + cough and able to speak in complete sentences; no respiratory distress, no labored breathing, not tachypneic and expiratory phase not prolo nged Auscultation: + wheezes (Mild, diffuse, end-expiratory) Cardiovascular: RRR, no murmur, no edema Gastrointestinal (Abdomen): Inspection/Auscultation: abdomen normal to inspection; abdomen not distended Musculoskeletal: no cyanosis or clubbing, extremities motor strength 5/5 Skin: no rashes, warm and dry Neurologic: moves all extremities and awake Psychiatric: Orientation: alert, oriented to person and cooperative Results & Data Results & Data ([facility]) Vital Signs (Past 12 Hours) Vital Signs Temp Pulse Pulse Resp BP BP Pulse Ox 05/07/21 20:39 86 20 159/71 H 93 05/07/21 19:26 86 20 141/72 H 95 05/07/21 18:46 93 05/07/21 18:45 89 L 05/07/21 18:30 36.4 C L 106 H 18 163/87 H 90 Code Status & VTE Plan VTE Prophylaxis Plan VTE Prophylaxis will be ordered: Yes PG Care Time/CCT Total # of Minutes Spent Total Time Spent with Patient: Total time spent is greater than 50% in coordination of care (as documented) at patient's floor/unit and/or counseling patient: Coding Level of Care Code 50903 Initial Inpt Care Lvl 3 Diagnoses Pneumonia J18.9 Laterality: left Lung location: lower lobe of lung Pneumonia type: due to unspecified organism COPD (chronic obstructive pulmonary disease) J44.9 COPD type: unspecified COPD Obstructive sleep apnea of adult G47.33 GERD (gastroesophageal reflux disease) K21.9 DVT prophylaxis Z29.9 Diabetes E11.9 (1) COPD (chronic obstructive pulmonary disease) COPD type: unspecified COPD Qualified Code(s): J44.9 - Chronic obstructive pulmonary disease, unspecified (2) Pneumonia Laterality: left Lung location: lower lobe of lung Pneumonia type: due to unspecified organism Qualified Code(s): J18.9 - Pneumonia, unspecified organism
[2021-05-07] MEDS ORDERED: CARBOHYDRATES FOR HYPOGLYCEMIA PO PRN (23:18)
[2021-05-07] MEDS ORDERED: ACETAMINOPHEN 325 MG TAB PO PRN (23:18)
[2021-05-07] MEDS ORDERED: DEXTROSE 50% 50 ML SYRINGE IV PRN (23:18)
[2021-05-07] MEDS ORDERED: GLUCOSE 10 TABS/TUBE PO PRN (23:18)
[2021-05-07] MEDS ORDERED: GLUCOSE 40% GEL 15 GM TUBE PO PRN (23:18)
[2021-05-07] MEDS ORDERED: GLUCAGON FOR INJ 1 MG VIAL SQ PRN (23:18)
[2021-05-07] MEDS ORDERED: ONDANSETRON INJ 2 MG/ML 2 ML VIAL IV PRN (23:18)
[2021-05-07] MEDS ORDERED: AZITHROMYCIN 250 MG TAB PO SCH (23:30)
[2021-05-08] MEDS ORDERED: INSULIN ASPART PER UNIT SC ONE (00:30)
[2021-05-08 06:04] LABS: Hematocrit (blood only) 39.8 % (37-47); Hemoglobin 13.8 g/dL (12.0-16.0); Mean Corpuscular Hgb Conc 34.7 g/dL (32-36); Mean Corpuscular Volume 89.4 fL (80-100); Mean Platelet Volume 9.9 fL (7.4-10.4); Platelet Count 226 K/uL (130-400); RDW Coefficient of Variation 13.1 % (11.5-14.5); Red Blood Count 4.45 M/uL (4.2-5.4); White Blood Count 9.76 K/uL (4.8-10.8)
[2021-05-08 06:31] LABS: BUN Creatinine Ratio 15.5 (10-20); Calcium 8.3 mg/dl (8.5-10.1); Creatinine Clr Calc Pharmacy 87.6 ml/min; Est GFR (African American) 85.1 ml/min; Est GFR (Non-African American) 73.4 ml/min; Magnesium 1.7 mg/dl (1.7-2.4); Potassium 3.7 mmol/L (3.5-5.1)
[2021-05-08] MEDS: ALBUT/IPRATROP 3MG/0.5MG NEB 3 ML VIAL NEB SCH ×4 (07:20→19:18)
[2021-05-08] MEDS: FLUTICASONE/VILANTEROL 200/25MCG 14 PUFFS/INHALER INH SCH (08:24)
[2021-05-08] MEDS: ENOXAPARIN INJ 40 MG/0.4 ML SYR SQ SCH (08:25)
--- NOTE | 2021-05-08 08:32 | CT Scan Report ---
CT angio chest PE protocol CT DOSE: 705.62 mGy.cm HISTORY: 65 years-old Female with PE. Acute shortness of breath with COPD and cough TECHNIQUE: Multiple CTA images of the chest were obtained after the intravenous administration of 120 ml Optiray. Coronal and sagittal MIPS were obtained from the axial data set and were submitted for review. All measurements were obtained according to NASCET criteria. A dose lowering technique was u tilized adhering to the principles of ALARA. COMPARISON: Chest radiograph of same day, CT lung screening study 01/13/2021 FINDINGS: CTA: The heart is upper limits of normal in size. There is no pericardial effusion. Mild ectasia of the as cending thoracic aorta is unchanged measuring 3.9 cm. No dissection or significant atherosclerosis. U nremarkable pulmonary artery. No filling defects to suggest thromboembolic disease. CT CHEST: No thyroid nodule or adenopathy. No pneumothorax or pleural effusion. Mild emphysema. Bronchial wall thickening with bibasilar mucous plugging. Groundglass densities with linear subsegmental consolidati on of the right lung base. There are a few scattered stable pulmonary nodules measuring up to 4 mm, n otably within the right middle lobe on image 95 and the left upper lobe on image 169 which are likely benign. There is complete collapse of the left lower lobe. No obstructing endobronchial lesion ident ified. There is no acute process of the imaged upper abdomen. Unremarkable soft tissues. There is no acute f racture. IMPRESSION: 1. No pulmonary emboli. 2. Complete collapse of the left lower lobe is presumably secondary to mucous plugging. This could be correlated with bronchoscopy to exclude an endobronchial lesion. 3. Mild emphysema with bronchial wall thickening suggestive of bronchitis. 4. No pleural effusion or lymphadenopathy. 5. Stable benign-appearing solid pulmonary nodules measure up to 4 mm. ACT 112: Negative or not required by law. The above report was generated using voice recognition software. It may contain grammatical, syntax o r spelling errors. Electronically signed by: Nabeel Dang M.D. 05/08/2021 8:31 AM
--- NOTE | 2021-05-08 09:24 | Electrocardiogram Report ---
Test Reason : Blood Pressure : / mmHG Vent. Rate : 085 BPM Atrial Rate : 085 BPM P-R Int : 158 ms QRS Dur : 102 ms QT Int : 396 ms P-R-T Axes : 056 017 039 degrees QTc Int : 471 ms Normal sinus rhythm Normal ECG When compared with ECG of 23-DEC-2019 20:54, Premature ventricular complexes are no longer Present Confirmed by Branden Trevizo ([id number]) on 05/08/2021 9:24:22 AM Referred By: REFERRED SELF Confirmed By:Branden Trevizo
[2021-05-08] MEDS: INSULIN ASPART PER UNIT SC SCH ×4 (09:43→21:02)
--- NOTE | 2021-05-08 11:40 | Hospitalist Progress Note ---
Date of Service May 08, 2021 Assessment & Plan (1) Collapse of left lung: Plan: Primary problem is collapse left lower lung, borderline hypoxia Incentive spirometry, flutter valve, chest PT (could not find chest vest but will explore) Hold off hypertonic saline Speech therapy consult to assess swallowing Pulmonary consult Kept n.p.o. after midnight in case bronchoscopy contemplated Nothing to suggest acute bacterial infectionstopped antibiotics; pulmonary may feel otherwise; if at all postobstructive process and therefore Unasyn might be worth considering but at present none (2) COPD (chronic obstructive pulmonary disease): Plan: No evidence of exacerbation; bronchodilation, hold off steroids (3) Diabetes: Plan: SSI only for now reasonable; A1c pending; recent diagnosis according to her (4) Obstructive sleep apnea of adult: Plan: Previously diagnosed. Does not use CPAP at home. Does not have a machine. - Monitor (5) GERD (gastroesophageal reflux disease): Plan: Only occasional use of PPI at home per patient. - Mylanta PRN (6) DVT prophylaxis: Plan: Lovenox 40 mg SQ daily-do not see contraindication at present unless bronchoscopy and biopsy contemplated but await pulmonary input Conditional code - Patient ok with CPR & cardioversion, but does not want breathing tube/ventilator even if she dies without it. Willing to have 1-2 rounds of CPR, as I stated that after that, she would need breathing tube to continue. Patient awake & alert and able to make this decision for herself. Admission and Anticipated Discharge Date Admission Date: May 07, 2021 Subjective Follow-up of presentation with abrupt onset of cough, pain on coughing left lung and left side of neck and equivocal shortness of breathsomewhat better; pain symptoms on coughing less Physical Exam Physical Exam: Constitutional and general: No acute distress, looks biologic age Head and face: No puffiness, atraumatic Eyes: No scleral icterus, extraocular movements normal Neck: Supple, no JVD Musculoskeletal: No acute joint swelling, no bony abnormalities Skin/dermatologic/integument: No rash, no purpura Hematologic and lymphatic: pallor none, no petechia Gastrointestinal/abdomen: Nondistended, soft, nonacute Neurologic: Cranial nerves intact, nonfocal Psychiatry: Awake, alert, pleasant, communicative Cardiovascular: Heart rhythm regular, no rub, no murmur, no gallop Respiratory: Chest movements equal, no use of accessory muscles, decreased breath sounds left base Extremities: No edema, no cyanosis Results & Data Results & Data ([facility]) Vital Signs (Past 12 Hours) Vital Signs Temp Pulse Resp BP Pulse Ox 05/08/21 10:38 80 18 96 05/08/21 07:20 84 20 94 05/08/21 06:27 36.8 C 86 20 134/83 92 05/07/21 23:00 36.7 C 90 22 157/94 H 91 Laboratory Results 05/08/21 05/08/21 05/08/21 Range/Units 08:12 06:30 05:35 WBC (4.8-10.8) K/uL RBC (4.2-5.4) M/uL Hgb (12.0-16.0) g/dL Hct (37-47) % MCV (80-100) fL MCH (25-34) pg MCHC (32-36) g/dL RDW Std Deviation (36.4-46.3) fL RDW Coeff of [place] (11.5-14.5) % Plt Count (130-400) K/uL MPV (7.4-10.4) fL Immature Gran % (Auto) % Neut % (Auto) % Lymph % (Auto) % [place] % (Auto) % Eos % (Auto) % Baso % (Auto) % Neut # (Auto) (1.4-6.5) K/uL Lymph # (Auto) (1.2-3.4) K/uL [place] # (Auto) (0.11-0.59) K/uL Eos # (Auto) (0-0.5) K/uL Baso # (Auto) (0-0.2) K/uL Immature Gran # (Auto) (0.00-0.02) K/uL PT (9.0-12.0) Seconds INR (0.9-1.1) APTT (21.0-31.0) Seconds PTT Ratio D-Dimer (0-500) ug/L FEU VBG pH (7.36-7.41) VBG pCO2 (38-50) mmHg VBG pO2 mmHg VBG HCO3 mmol/L VBG O2 Saturation % VBG Base Excess mEq/L Barometric Pressure mm/Hg Sodium (136-145) mmol/L Potassium (3.5-5.1) mmol/L Chloride (98-107) mmol/L Carbon Dioxide (21-32) mmol/L Anion Gap (3-11) BUN (6-23) mg/dl Creatinine (0.6-1.2) mg/dl Est Cr Clr Drug Dosing ml/min Est GFR ( Amer) ml/min Est GFR (Non-Af Amer) ml/min BUN/Creatinine Ratio (10-20) Glucose (70-99(Fasting)) mg/dl POC Glucose 129 H (70-99) mg/dl Estimat Average Glucose Hemoglobin A1c Calcium (8.5-10.1) mg/dl Magnesium (1.7-2.4) mg/dl Total Bilirubin (0.2-1.0) mg/dl AST (13-39) U/L ALT (7-52) U/L Alkaline Phosphatase (34-104) U/L Troponin I (0-0.04) ng/ml Total Protein (6.0-8.3) gm/dl Albumin (3.4-5.0) gm/dl Globulin (2.5-4.0) gm/dl Albumin/Globulin Ratio (0.9-2) Procalcitonin (0-0.5) ng/ml Hepatitis C Ab Screen Pending Influ A Molecular Assay (Negative) Influ B Molecular Assay (Negative) Urine Legionella Ag Pending SARS-CoV-2, RNA, NAAT (NEGATIVE) 05/08/21 05/08/21 05/08/21 Range/Units 05:35 05:35 05:35 WBC 9.76 (4.8-10.8) K/uL RBC 4.45 (4.2-5.4) M/uL Hgb 13.8 (12.0-16.0) g/dL Hct 39.8 (37-47) % MCV 89.4 (80-100) fL MCH 31.0 (25-34) pg MCHC 34.7 (32-36) g/dL RDW Std Deviation 43.0 (36.4-46.3) fL RDW Coeff of [place]rec[place] 13.1 (11.5-14.5) % Plt Count 226 (130-400) K/uL MPV 9.9 (7.4-10.4) fL Immature Gran % (Auto) % Neut % (Auto) % Lymph % (Auto) % [place] % (Auto) % Eos % (Auto) % Baso % (Auto) % Neut # (Auto) (1.4-6.5) K/uL Lymph # (Auto) (1.2-3.4) K/uL [place] # (Auto) (0.11-0.59) K/uL Eos # (Auto) (0-0.5) K/uL Baso # (Auto) (0-0.2) K/uL Immature Gran # (Auto) (0.00-0.02) K/uL PT (9.0-12.0) Seconds INR (0.9-1.1) APTT (21.0-31.0) Seconds PTT Ratio D-Dimer (0-500) ug/L FEU VBG pH (7.36-7.41) VBG pCO2 (38-50) mmHg VBG pO2 mmHg VBG HCO3 mmol/L VBG O2 Saturation % VBG Base Excess mEq/L Barometric Pressure mm/Hg Sodium 140 (136-145) mmol/L Potassium 3.7 (3.5-5.1) mmol/L Chloride 107 (98-107) mmol/L Carbon Dioxide 27 (21-32) mmol/L Anion Gap 6 (3-11) BUN 13 (6-23) mg/dl Creatinine 0.84 (0.6-1.2) mg/dl Est Cr Clr Drug Dosing 87.6 ml/min Est GFR ( Amer) 85.1 ml/min Est GFR (Non-Af Amer) 73.4 ml/min BUN/Creatinine Ratio 15.5 (10-20) Glucose 107 H (70-99(Fasting)) mg/dl POC Glucose (70-99) mg/dl Estimat Average Glucose Pending Hemoglobin A1c Pending Calcium 8.3 L (8.5-10.1) mg/dl Magnesium 1.7 (1.7-2.4) mg/dl Total Bilirubin (0.2-1.0) mg/dl AST (13-39) U/L ALT (7-52) U/L Alkaline Phosphatase (34-104) U/L Troponin I (0-0.04) ng/ml Total Protein (6.0-8.3) gm/dl Albumin (3.4-5.0) gm/dl Globulin (2.5-4.0) gm/dl Albumin/Globulin Ratio (0.9-2) Procalcitonin (0-0.5) ng/ml Hepatitis C Ab Screen Influ A Molecular Assay (Negative) Influ B Molecular Assay (Negative) Urine Legionella Ag SARS-CoV-2, RNA, NAAT (NEGATIVE) 05/07/21 05/07/21 05/07/21 Range/Units 23:36 23:11 19:16 WBC (4.8-10.8) K/uL RBC (4.2-5.4) M/uL Hgb (12.0-16.0) g/dL Hct (37-47) % MCV (80-100) fL MCH (25-34) pg MCHC (32-36) g/dL RDW Std Deviation (36.4-46.3) fL RDW Coeff of [place]recia (11.5-14.5) % Plt Count (130-400) K/uL MPV (7.4-10.4) fL Immature Gran % (Auto) % Neut % (Auto) % Lymph % (Auto) % [place] % (Auto) % Eos % (Auto) % Baso % (Auto) % Neut # (Auto) (1.4-6.5) K/uL Lymph # (Auto) (1.2-3.4) K/uL [place] # (Auto) (0.11-0.59) K/uL Eos # (Auto) (0-0.5) K/uL Baso # (Auto) (0-0.2) K/uL Immature Gran # (Auto) (0.00-0.02) K/uL PT (9.0-12.0) Seconds INR (0.9-1.1) APTT (21.0-31.0) Seconds PTT Ratio D-Dimer (0-500) ug/L FEU VBG pH (7.36-7.41) VBG pCO2 (38-50) mmHg VBG pO2 mmHg VBG HCO3 mmol/L VBG O2 Saturation % VBG Base Excess mEq/L Barometric Pressure mm/Hg Sodium (136-145) mmol/L Potassium (3.5-5.1) mmol/L Chloride (98-107) mmol/L Carbon Dioxide (21-32) mmol/L Anion Gap (3-11) BUN (6-23) mg/dl Creatinine (0.6-1.2) mg/dl Est Cr Clr Drug Dosing ml/min Est GFR ( Amer) ml/min Est GFR (Non-Af Amer) ml/min BUN/Creatinine Ratio (10-20) Glucose (70-99(Fasting)) mg/dl POC Glucose 163 H (70-99) mg/dl Estimat Average Glucose Hemoglobin A1c Calcium (8.5-10.1) mg/dl Magnesium (1.7-2.4) mg/dl Total Bilirubin (0.2-1.0) mg/dl AST (13-39) U/L ALT (7-52) U/L Alkaline Phosphatase (34-104) U/L Troponin I (0-0.04) ng/ml Total Protein (6.0-8.3) gm/dl Albumin (3.4-5.0) gm/dl Globulin (2.5-4.0) gm/dl Albumin/Globulin Ratio (0.9-2) Procalcitonin < 0.05 (0-0.5) ng/ml Hepatitis C Ab Screen Influ A Molecular Assay Negative (Negative) Influ B Molecular Assay Negative (Negative) Urine Legionella Ag SARS-CoV-2, RNA, NAAT (NEGATIVE) 05/07/21 05/07/21 05/07/21 Range/Units 19:16 18:45 18:45 WBC (4.8-10.8) K/uL RBC (4.2-5.4) M/uL Hgb (12.0-16.0) g/dL Hct (37-47) % MCV (80-100) fL MCH (25-34) pg MCHC (32-36) g/dL RDW Std Deviation (36.4-46.3) fL RDW Coeff of Grecia (11.5-14.5) % Plt Count (130-400) K/uL MPV (7.4-10.4) fL Immature Gran % (Auto) % Neut % (Auto) % Lymph % (Auto) % [place] % (Auto) % Eos % (Auto) % Baso % (Auto) % Neut # (Auto) (1.4-6.5) K/uL Lymph # (Auto) (1.2-3.4) K/uL [place] # (Auto) (0.11-0.59) K/uL Eos # (Auto) (0-0.5) K/uL Baso # (Auto) (0-0.2) K/uL Immature Gran # (Auto) (0.00-0.02) K/uL PT (9.0-12.0) Seconds INR (0.9-1.1) APTT (21.0-31.0) Seconds PTT Ratio D-Dimer (0-500) ug/L FEU VBG pH 7.41 (7.36-7.41) VBG pCO2 44 (38-50) mmHg VBG pO2 36 mmHg VBG HCO3 27 mmol/L VBG O2 Saturation 67.8 % VBG Base Excess 1.8 mEq/L Barometric Pressure 726.0 mm/Hg Sodium 140 (136-145) mmol/L Potassium 3.7 (3.5-5.1) mmol/L Chloride 107 (98-107) mmol/L Carbon Dioxide 26 (21-32) mmol/L Anion Gap 7 (3-11) BUN 11 (6-23) mg/dl Creatinine 0.76 (0.6-1.2) mg/dl Est Cr Clr Drug Dosing 96.6 ml/min Est GFR ( Amer) 96.1 ml/min Est GFR (Non-Af Amer) 82.9 ml/min BUN/Creatinine Ratio 14.5 (10-20) Glucose 132 H (70-99(Fasting)) mg/dl POC Glucose (70-99) mg/dl Estimat Average Glucose Hemoglobin A1c Calcium 9.4 (8.5-10.1) mg/dl Magnesium 1.7 (1.7-2.4) mg/dl Total Bilirubin 0.5 (0.2-1.0) mg/dl AST 20 (13-39) U/L ALT 32 (7-52) U/L Alkaline Phosphatase 56 (34-104) U/L Troponin I < 0.03 (0-0.04) ng/ml Total Protein 7.4 (6.0-8.3) gm/dl Albumin 4.0 (3.4-5.0) gm/dl Globulin 3.4 (2.5-4.0) gm/dl Albumin/Globulin Ratio 1.2 (0.9-2) Procalcitonin (0-0.5) ng/ml Hepatitis C Ab Screen Influ A Molecular Assay (Negative) Influ B Molecular Assay (Negative) Urine Legionella Ag SARS-CoV-2, RNA, NAAT NEGATIVE (NEGATIVE) 05/07/21 05/07/21 Range/Units 18:45 18:45 WBC 9.35 (4.8-10.8) K/uL RBC 4.82 (4.2-5.4) M/uL Hgb 15.2 (12.0-16.0) g/dL Hct 43.0 (37-47) % MCV 89.2 (80-100) fL MCH 31.5 (25-34) pg MCHC 35.3 (32-36) g/dL RDW Std Deviation 43.2 (36.4-46.3) fL RDW Coeff of Grecia 13.1 (11.5-14.5) % Plt Count 267 (130-400) K/uL MPV 9.9 (7.4-10.4) fL Immature Gran % (Auto) 0.3 % Neut % (Auto) 62.1 % Lymph % (Auto) 23.4 % [place] % (Auto) 9.1 % Eos % (Auto) 4.8 % Baso % (Auto) 0.3 % Neut # (Auto) 5.80 (1.4-6.5) K/uL Lymph # (Auto) 2.19 (1.2-3.4) K/uL [place] # (Auto) 0.85 H (0.11-0.59) K/uL Eos # (Auto) 0.45 (0-0.5) K/uL Baso # (Auto) 0.03 (0-0.2) K/uL Immature Gran # (Auto) 0.03 H (0.00-0.02) K/uL PT 11.0 (9.0-12.0) Seconds INR 1.0 (0.9-1.1) APTT 23.4 (21.0-31.0) Seconds PTT Ratio 0.9 D-Dimer 620 H* (0-500) ug/L FEU VBG pH (7.36-7.41) VBG pCO2 (38-50) mmHg VBG pO2 mmHg VBG HCO3 mmol/L VBG O2 Saturation % VBG Base Excess mEq/L Barometric Pressure mm/Hg Sodium (136-145) mmol/L Potassium (3.5-5.1) mmol/L Chloride (98-107) mmol/L Carbon Dioxide (21-32) mmol/L Anion Gap (3-11) BUN (6-23) mg/dl Creatinine (0.6-1.2) mg/dl Est Cr Clr Drug Dosing ml/min Est GFR ( Amer) ml/min Est GFR (Non-Af Amer) ml/min BUN/Creatinine Ratio (10-20) Glucose (70-99(Fasting)) mg/dl POC Glucose (70-99) mg/dl Estimat Average Glucose Hemoglobin A1c Calcium (8.5-10.1) mg/dl Magnesium (1.7-2.4) mg/dl Total Bilirubin (0.2-1.0) mg/dl AST (13-39) U/L ALT (7-52) U/L Alkaline Phosphatase (34-104) U/L Troponin I (0-0.04) ng/ml Total Protein (6.0-8.3) gm/dl Albumin (3.4-5.0) gm/dl Globulin (2.5-4.0) gm/dl Albumin/Globulin Ratio (0.9-2) Procalcitonin (0-0.5) ng/ml Hepatitis C Ab Screen Influ A Molecular Assay (Negative) Influ B Molecular Assay (Negative) Urine Legionella Ag SARS-CoV-2, RNA, NAAT (NEGATIVE) PG Care Time/CCT Total # of Minutes Spent Total Time Spent with Patient: Total time spent is greater than 50% in coordination of care (as documented) at patient's floor/unit and/or counseling patient: Coding Level of Care Code 63200 Subseq Hosp Care Lvl 2 Diagnoses COPD (chronic obstructive pulmonary disease) J44.9 COPD type: unspecified COPD Diabetes E11.9 Obstructive sleep apnea of adult G47.33 GERD (gastroesophageal reflux disease) K21.9 DVT prophylaxis Z29.9 Collapse of left lung J98.11 (1) COPD (chronic obstructive pulmonary disease) COPD type: unspecified COPD Qualified Code(s): J44.9 - Chronic obstructive pulmonary disease, unspecified
--- NOTE | 2021-05-08 11:52 | Pulmonary Consultation ---
Date of Consultation May 08, 2021 Assessment & Plan (1) Collapse of left lung: (2) Hypoxia: (3) Cough: Impression: 65-year-old female with history of tobacco abuse presenting now with atelectasis of the left lower lobe. I suspect this represents a mucous plug given the patient's clinical history. The lung was well aerated on a CT scan of the abdomen and pelvis performed about 6 or 8 weeks ago. She is not interested in pursuing aggressive interventions currently and would like to pu rsue a conservative approach which I think is reasonable. Recommendations: 1. Continue pulmonary toilet with flutter valve and incentive spirometry. Add Mucinex to her regiment. 2. The patient can complete a course of a azithromycin 250 mg daily for 5 days. Think we can discontinue the Rocephin at this point time. 3. Would recommend follow-up CT scan in 6 to 8 weeks. We can see her back in the pulmonary clinic to review that scan. If the abnormality persists, could consider bronchoscopy at that point in time. 4. Smoking cessation recommended. 5. We will see her back in clinic with a follow-up CT scan in 6 weeks. If the abnormality persists, would consider bronchoscopy at that point time. The patient can be dismissed from the hospital from a pulmonary standpoint. Feel free to contact us if we can be of additional assistance. Otherwise we can follow her up in the clinic. History of Present Illness Attending Physician: Ninfa Alicia MD History of Present Illness Asked by hospitalist to evaluate this patient with an abnormal CT scan. History is obtained from reviewed electronic medical record and discussion with the patient. Patient is a 65-year-old female with an extensive history of tobacco abuse who continues to smoke at the rate of a pack per day. She is followed by ELIDIA Ruvalcaba in the outpatient pulmonary clinic. She states that she developed some neck discomfort associated with coughing. She felt like she might have pleurisy. This prompted her to come to the emergency room. She denies any fevers chills or sweats. She has been coughing but not expectorating any phlegm. No unintentional weight loss. The patient had a lung cancer screening exam performed in December which was negative and a CT of the abdomen and pelvis performed in February which showed normal aeration at the base of the lungs. Her CT scan here demonstrated no evidence of thromboembolic disease but did show atelectasis of the left lower lobe which was new. The patient does not report any significant shortness of breath or other respiratory complaints currently Allergies Allergy/AdvReac Type Severity Reaction Status Date / Time Penicillins Allergy Intermediate RESP. Verified 05/07/21 19:20 ISSUES Sulfa (Sulfonamide Allergy Intermediate RESP. Verified 05/07/21 19:20 Antibiotics) ISSUES Home Medications Medication Instructions Recorded Confirmed Type Lactobacillus acidophilus 10 1 cap PO QAM 01/09/18 05/07/21 History billion cell capsule (Probiotic) albuterol sulfate 0.63 mg/3 mL 0.63 mg INHALATION Q4H PRN 01/09/18 05/07/21 History solution for nebulization albuterol sulfate 90 mcg/actuation 2 puff INHALATION QID PRN 01/09/18 05/07/21 History aerosol inhaler (ProAir HFA) cholecalciferol (vitamin D3) 25 1,000 unit PO HS 01/09/18 05/07/21 History mcg (1,000 unit) capsule (Vitamin D3) ipratropium bromide 0.02 % 2.5 ml INHALATION Q4H PRN 01/09/18 05/07/21 History solution for inhalation omega-3 fatty acids 1,000 mg 1,000 mg PO HS 01/09/18 05/07/21 History capsule ibuprofen 600 mg tablet 600 mg PO Q6H PRN #16 tab 12/23/19 05/07/21 Rx nebulizers #1 ea 12/29/20 12/29/20 Rx fluticasone 500 mcg-salmeterol 50 1 inh INHALATION BID #60 ea 03/24/21 05/07/21 Rx mcg/dose blistr powdr for inhalation (Advair Diskus) aspirin 81 mg tablet,delayed 162 mg PO HS 03/28/21 05/07/21 History release magnesium oxide 500 mg tablet 500 mg PO DAILY PRN 03/28/21 05/07/21 History ondansetron 4 mg disintegrating 4 mg PO Q6H PRN #12 tab 03/28/21 05/07/21 Rx tablet ketorolac 10 mg tablet 10 mg PO TID PRN 05/07/21 05/07/21 History Patient History Medical History Acute pyelonephritis COPD (chronic obstructive pulmonary disease) Diabetes E. coli septicemia Fever GERD (gastroesophageal reflux disease) Gram negative septicemia H/O Clostridium difficile infection Herpes labialis Leukocytosis Obstructive sleep apnea of adult Renal abscess Sepsis Surgical History H/O colonoscopy "11/2013- hyperplastic polyp, diverticulosis" S/P "1982" S/P cholecystectomy Family History Other Cancer Diabetes Gallbladder disease Hypertension Lung disease Social History Smoking Status: Current every day smoker Tobacco Type: Cigarettes Second Hand Exposure: No; Do You Dip or Chew Tobacco: No; Tobacco Cessation Education Requested by Patient: No Hx Alcohol Use: No Hx Substance Use: No Preferred Language: Qatari Communication Ability: Effective Residence Supervisor Required: No Beliefs That Will Affect Care: None marital status: Current Living Situation: Alone current occupational status: employed Other Information That Helps Us Care for You: No Feels Safe at Home: Yes Safety Concerns: Feels Safe At This Time Assistive Devices: Denture - Upper Review of Systems Review of Systems: All systems reviewed & are unremarkable except as noted in Subjective Physical Exam Constitutional: WD/WN, vitals as above Neck: trachea midline, no thyromegaly Respiratory: normal respiratory effort, lungs clear to auscultation Cardiovascular: RRR, no murmur, no edema Gastrointestinal (Abdomen): normal bowel sounds, soft, nontender, no hepatosplenomegaly Musculoskeletal: Extremities: extremities normal to inspection Skin: no rashes, warm and dry Neurologic: Nonfocal exam Lymphatic: no cervical lymphadenopathy Results & Data Results & Data ([facility]) Vital Signs (Past 12 Hours) Vital Signs Temp Pulse Resp BP Pulse Ox 05/08/21 10:38 80 18 96 05/08/21 07:20 84 20 94 05/08/21 06:27 36.8 C 86 20 134/83 92 05/07/21 23:00 36.7 C 90 22 157/94 H 91 Laboratory Results 05/08/21 05:35 05/08/21 05:[address] angio chest PE protocol 05/07/2021 CT DOSE: 705.62 mGy.cm HISTORY: 65 years-old Female with PE. Acute shortness of breath with COPD and cough TECHNIQUE: Multiple CTA images of the chest were obtained after the intravenous administration of 120 ml Optiray. Coronal and sagittal MIPS were obtained from the axial data set and were submitted for review. All measurements were obtained according to NASCET criteria. A dose lowering technique was utilized adhering to the principles of ALARA. COMPARISON: Chest radiograph of same day, CT lung screening study 01/13/2021 FINDINGS: CTA: The heart is upper limits of normal in size. There is no pericardial effusion. Mild ectasia of the ascending thoracic aorta is unchanged measuring 3.9 cm. No dissection or significant atherosclerosis. Unremarkable pulmonary artery. No filling defects to suggest thromboembolic disease. CT CHEST: No thyroid nodule or adenopathy. No pneumothorax or pleural effusion. Mild emphysema. Bronchial wall thickening with bibasilar mucous plugging. Groundglass densities with linear subsegmental consolidation of the right lung base. There are a few scattered stable pulmonary nodules measuring up to 4 mm, notably within the right middle lobe on image 95 and the left upper lobe on image 169 which are likely benign. There is complete collapse of the left lower lobe. No obstructing endobronchial lesion identified. There is no acute process of the imaged upper abdomen. Unremarkable soft tissues. There is no acute fracture. IMPRESSION: 1. No pulmonary emboli. 2. Complete collapse of the left lower lobe is presumably secondary to mucous plugging. This could be correlated with bronchoscopy to exclude an endobronchial lesion. 3. Mild emphysema with bronchial wall thickening suggestive of bronchitis. 4. No pleural effusion or lymphadenopathy. 5. Stable benign-appearing solid pulmonary nodules measure up to 4 mm. PG Care Time/CCT Total # of Minutes Spent Total Time Spent with Patient: Total time spent is greater than 50% in coordination of care (as documented) at patient's floor/unit and/or counseling patient: Coding Level of Care Code 79834 Inpt Consult Level 4 Diagnoses Collapse of left lung J98.11 Hypoxia R09.02 Cough R05.9
[2021-05-08] MEDS ORDERED: cefTRIAXone SODIUM 2,000 MG in DEXTROSE 5% 50 ML IV SCH (20:00)
[2021-05-08] MEDS: guaiFENesin 600 MG TABCR PO SCH (20:15)
[2021-05-08] MEDS ORDERED: CHOLECALCIFEROL 1,000 UNITS 25 MCG TAB PO SCH (21:00)
[2021-05-08] MEDS ORDERED: ASPIRIN 81 MG ECTAB PO SCH (21:00)
[2021-05-09] MEDS: ALBUT/IPRATROP 3MG/0.5MG NEB 3 ML VIAL NEB SCH ×2 (06:59→10:39)
[2021-05-09] MEDS: ENOXAPARIN INJ 40 MG/0.4 ML SYR SQ SCH (08:31)
[2021-05-09] MEDS: guaiFENesin 600 MG TABCR PO SCH (08:31)
[2021-05-09] MEDS: FLUTICASONE/VILANTEROL 200/25MCG 14 PUFFS/INHALER INH SCH (08:32)
[2021-05-09] MEDS ORDERED: AZITHROMYCIN 250 MG TAB PO SCH (09:00)
[2021-05-09 09:07] LABS: Estimated Average Glucose 160 mg/dl; Hemoglobin A1C 7.2 % (4.5-5.6)
[2021-05-09] MEDS: INSULIN ASPART PER UNIT SC SCH ×2 (09:16→12:52)
--- NOTE | 2021-05-09 15:40 | Discharge Summary ---
Date of Service May 09, 2021 Admission HPI Per Admitting Provider 65yo F w/ hx of COPD & kidney stones who presents with cough and shortness of breath. She was in her normal state of health on , but yesterday (Sunday) began to have some coughing. It was a dry cough, without any sputum production. She associates it with some shortness of breath, though no increase in her usual wheezing. Also reports some loss of appetite, but otherwise, no positive ROS. She denies any recent hospitalizations or any vomiting/aspiration. No fevers/chills, no chest pain (apart from coughing), no abdominal pain, nausea, or vomiting, no urinary issues, no diarrhea/constipation. Principal Diagnosis Acute hypoxic respiratory failure 2/2 lobar collapse suspect due to mucous plugging Discharge Exam General: A&Ox3. NAD. Cooperative. Relates independently in the room during exam. HEENT: Atraumatic, normocephalic. Visual acuity and hearing grossly intact. Pulm: CTAB A&P. -wheezes, -rales, -rhonchi. Symmetrical chest rise. No increase in work of breathing. No respiratory distress. Cardiac: RRR, -mrg. Radial pulses intact and symmetrical. Abdominal: Nontender, nondistended, soft. BS present. Extremities: Warm, dry. Ambulating as above. In flexion, ankle dorsiflexion/plantar flexion, roping tender strength, elbow flexion/extension intact bilaterally with full strength. Discharge Data Allergies Allergy/AdvReac Type Severity Reaction Status Date / Time Penicillins Allergy Intermediate RESP. Verified 05/07/21 19:20 ISSUES Sulfa (Sulfonamide Allergy Intermediate RESP. Verified 05/07/21 19:20 Antibiotics) ISSUES Consultations 05/07/21 20:47 ED Decision to Admit Stat 05/08/21 11:11 Consult Pulmonology Routine Ordered Studies 05/07/21 19:27 CT angio chest PE protocol Stat Hospital Course (1) Collapse of left lung: Zuri is a 65-year-old female who presented with neck discomfort and coughing. She was found to have left lower lobe collapse suspected due to mucous plugging on CT. She is seen by pulmonary and wished to avoid aggressive intervention and follow a conservative approach, was treated with azithromycin for COPD coverage and aggressive pulmonary toilet with flutter valve and incentive spirometry. She was stable for discharge and breathing well on room air, but required some oxygen with ambulation. She is discharged with follow-up to pulmonology and anticipate CT scan in 6 to 8 weeks with potential bronchoscopy at that time if not improving. To do as outpatient: 1. Complete total 5-day course of azithromycin, discharged to complete 3 additional doses of azithromycin to 50 mg daily 2. Follow-up with pulmonology. Repeat CT scan in 6 to 8 weeks, reconsideration of bronchoscopy if needed 3. Routine follow-up with PCP 4. Reevaluation of oxygen requirements, require 2 L oxygen with ambulation at time of discharge but otherwise well. Ambulating independently with good strength at discharge. 5. Patient DM follow-up and management, A1c 7.2 during admission. New diagnosis during mission, she reports new diagnosis and is following as outpatient for this. Would add Metformin therapy on follow-up if not less than 7 with lifestyle changes. Left lung collapse - CTA. No pulmonary emboli are appreciated. Mild emphysema with bronchial wall thickening. No pleural effusion/lymphadenopathy. Stable benign-appearing solid pulmonary nodules up to 4 mm. -Primary problem is collapse left lower lung, borderline hypoxia -Incentive spirometry, flutter valve, chest PT (could not find chest vest but will explore) -Pulmonary consulted. Suspected mucous plugging. tx with chest physio, mucinex, incentive lyla/flutter, and conservative management with f/u to outpt pulm in 6-8 weeks. Stable for discharge from pulmonary standpoint. Appreciate recommendations. Ambulated independently mostly with SPO2 >=88%,4x measurements of brief 87% with improvement with rest. Two-step was performed, patient discharged with 2 L nasal cannula oxygen as needed with ambulation at discharge. (2) COPD (chronic obstructive pulmonary disease): No evidence of exacerbation; bronchodilation, hold off steroids (3) Diabetes: SSI during admission, reasonable glycemic control A1c 7.2 May follow-up as outpatient for further management (4) Obstructive sleep apnea of adult: Previously diagnosed. Does not use CPAP at home. Does not have a machine. (5) GERD (gastroesophageal reflux disease): Only occasional use of PPI at home per patient. - Mylanta PRN (6) DVT prophylaxis: Lovenox 40 mg SQ daily-no signs of DVT/PE during admission Conditional code during admission- Patient ok with CPR & cardioversion, but does not want breathing tube/ventilator even if she dies without it. Willing to have 1-2 rounds of CPR, as I stated that after that, she would need breathing tube to continue. Patient awake & alert and able to make this decision for herself. Total Time Total Time Spent Total Time Spent (In Minutes): Time spend day of discharge 45 minutes including direct patient care, documentation, review of labs and images, and coordination of care. Discharge Plan Discharge Items Patient Disposition: Home - Self-Care Reason For Visit: LLL PNA Discharge Diagnosis: Left lower lobe pneumonia versus mucous plug Activity: Per Instructions section Non-emergency contact: Primary Care Provider and Television Rep[employer]man Call non-emergency contact if: you have any medication questions, your symptoms worsen, your pain is not controlled and your pain is worsening Follow-up/Referrals: Anthony Arshad MD [Physician] - (PULMONARY OFFICE WILL CALL PATIENT WITH A HOSPITAL F/U VISIT.) Meghan Watts MD [Primary Care Provider] - 05/17/21 1:50 pm (will see EBONIE Ross) Diet: Regular Addtl Attending Provider Instructions: You are seen in the hospital for shortness of breath and were found to have a abnormal CAT scan. Your CAT scan of your lung did not show any pulmonary emboli, but did show complete collapse of the left lower lobe likely due to mu cous plugging. Additional mild emphysema was appreciated. Pulmonology was consulted and recommended continuing your flutter valve and incentive spirometry, adding Mucinex daily, and completing a short course of azithromycin (antibiotic). Bronchoscopy was discussed, aggressive interventions were deferred at time of hospitalization. It was recommended that you have a follow- up CT scan in 6 to 8 weeks, and consider bronchoscopy at that time if you have not improved. You did have oxygen requirements with exertion. On day of discharge she felt clinically back to your normal baseline, but on ambulation you did have desaturations down to 87%. Your oxygen levels were in the 90s at rest. You are able to ambulate independently. Based on these oxygen levels you should use oxygen with exertion at this time, you have been prescribed 2 L of oxygen at home for use with ambulation and will have her oxygen requirements reassessed at follow-up. You have been prescribed an antibiotic, azithromycin to cover for pneumonia. Please take azithromycin 250 mg by mouth once daily for 3 additional days to complete a total 5-day course. If you develop any new or worsening symptoms including worsening shortness of breath, fever, chills or other new concerning symptoms please contact your primary care physician or call 911 for reevaluation in the emergency department. A follow-up appointment is being scheduled for you with your primary care physician Dr. Conte. You should be seen within 1 to 2 weeks. You do not receive a call to confirm this appointment within 48 hours, please call her off ice at the number above. A follow-up appointment is being scheduled for you with pulmonology. They will arrange a follow-up CT scan in 6 weeks. If you do not hear regarding an appointment within the next week, please call their office at the number above. If you develop any new or worsening symptoms including fever, chills, sweats, chest pain, chest pressure, difficulty breathing, uncontrolled nausea/vomiting, rash, wheezing, passing out or nearly passing out, bleeding, black/bloody bowel movements, or other new or concerning symptoms please call your primary care physician at [], or call 911 for re-evaluation in the emergency department if you are very concerned. Pending Studies at Discharge: Yes (repeat chest ct in 6 weeks) Stand-Alone Forms: [facility] [employer], Smoking Cessation Medications and DC Order Prescriptions: New azithromycin 250 mg Tablet 250 mg PO QAM Qty: 3 RF: 0 Continued fluticasone propion-salmeterol [Advair Diskus] 500-50 mcg/dose blister with device 1 inh INHALATION BID Qty: 60 RF: 6 Hold Instructions: trial trelegy (DME) nebulizers Misc See Rx Instructions miscellaneous .MEDSUPPLY Qty: 1 RF: 5 albuterol sulfate 0.63 mg/3 mL Solution For Nebulization 0.63 mg INHALATION Q4H PRN (Reason: Shortness Of Breath) RF: 0 omega-3 fatty acids 1,000 mg Capsule 1,000 mg PO HS RF: 0 albuterol sulfate [ProAir HFA] 90 mcg/actuation Hfa Aerosol Inhaler 2 puff INHALATION QID PRN (Reason: Shortness Of Breath Or Wheezing) RF: 0 ipratropium bromide 0.02 % Solution 2.5 ml INHALATION Q4H PRN (Reason: Shortness Of Breath) RF: 0 cholecalciferol (vitamin D3) [Vitamin D3] 1,000 unit Capsule 1,000 unit PO HS RF: 0 Probiotic 10 billion cell Capsule 1 cap PO QAM RF: 0 ibuprofen 600 mg tablet 600 mg PO Q6H PRN (Reason: pain) Qty: 16 RF: 0 aspirin 81 mg Tablet,Delayed Release (Dr/Ec) 162 mg PO HS RF: 0 magnesium oxide 500 mg Tablet 500 mg PO DAILY PRN (Reason: LEG CRAMPS) RF: 0 ondansetron 4 mg tablet,disintegrating 4 mg PO Q6H PRN (Reason: nausea and vomiting) Qty: 12 RF: 0 ketorolac 10 mg tablet 10 mg PO TID PRN (Reason: Pain) RF: 0 Discharge Orders: Discharge Order (Routine); Ordered 05/09/21 Ordered By: Christopher Edwards Admission Data Admit Date/Time: 05/07/21 21:44 Attending Provider: Christopher Edwards Admit Provider: Corwin Cardoza Primary Care Provider: Meghan Watts Other Providers: Corwin Cardoza ; Anthony Arshad Other Interventions: Discharge Summary Assessment (RN) Last Done: 05/09/21 13:09 Coding Level of Care Code D/C DAY MANAGEMENT >30 MINS Diagnoses Collapse of left lung J98.11 COPD (chronic obstructive pulmonary disease) J44.9 COPD type: unspecified COPD Diabetes E11.9 Obstructive sleep apnea of adult G47.33 GERD (gastroesophageal reflux disease) K21.9 DVT prophylaxis Z29.9
== END 2021-05-09 13:49 | disposition home or self-care (01) ==
LOC: ED 18:27 → SUATTDRO 21:44 → INTOOBSV 21:44 → 3N 21:44

== ENCOUNTER 2023-02-20 03:40 | Inpatient (IN) ==
[2023-02-20 04:28] LABS: Appearance Urine Clear (Clear); Bacteria Urine Automated 4+ (Negative); Bilirubin Urine Negative (Negative); Blood Urine 2+ (Negative); Color Urine Yellow; Epithelial Cell Urine Auto >30 /lpf (0-5); Glucose Urine UA Negative (Negative); Ketones Urine Negative (Negative); Leukocyte Esterase Urine Negative (Negative); Nitrite Urine Positive (Negative); Protein Urine Negative (Negative); Specific Gravity Urine 1.013 (1.000-1.030); Urobilinogen Urine Negative (Negative)
[2023-02-20 04:30] LABS: Basophils # (auto) 0.11 K/uL (0.00-0.20); Basophils % (auto) 1.1 %; Eosinophils # (auto) 0.22 K/uL (0.00-0.50); Eosinophils % (auto) 2.1 %; Hematocrit (blood only) 45.4 % (37.0-47.0); Hemoglobin 15.2 g/dl (12.0-16.0); Immature Granulocytes # (auto) 0.07 K/uL (0.01-0.20); Immature Granulocytes % (auto) 0.7 %; Lymphocytes # (auto) 2.48 K/uL (1.20-3.40); Lymphocytes % (auto) 24.1 %; Mean Corpuscular Hemoglobin 29.8 pg (25.0-34.0); Mean Corpuscular Hgb Conc 33.5 g/dL (32.0-36.0); Monocytes # (auto) 0.86 K/uL (0.11-0.59); Monocytes % (auto) 8.4 %; Neutrophils # (auto) 6.54 K/uL (1.40-6.50); Neutrophils % (auto) 63.6 %; Platelet Count 282 K/uL (130-400); RDW Coefficient of Variation 12.8 % (11.5-14.5); RDW Standard Deviation 41.7 fL (36.4-46.3); White Blood Count 10.28 K/ul (4.8-10.8)
[2023-02-20 04:47] LABS: Albumin Globulin Ratio 1.2 (0.9-2); Albumin Level 4.2 gm/dl (3.4-5.0); Bilirubin,Total 0.4 mg/dl (0.2-1.0); Calcium 9.8 mg/dl (8.6-10.3); Creatinine Clr Calc Pharmacy 68.4 ml/min; Est GFR (Non-African American) 58.7 ml/min; Globulin 3.4 gm/dl (2.5-4.0); Total Protein 7.6 gm/dl (6.0-8.3)
--- NOTE | 2023-02-20 04:48 | Emergency Department Note ---
History of Present Illness General Chief complaint: Kidney Stone Stated complaint: KIDNEY STONE Time Seen by Provider: 02/20/23 03:58 History of Present Illness Maximum Pain Intensity: 6 This is a 67-year-old female that presents to the emergency department via private vehicle with complaints of "right flank pain". The patient notes that last evening between the hours of 6 PM and 6:30 PM she began with right flank pain. She denies any known trauma or injury. She then awoke early this morning and more pain therefore prompting arrival. She notes a remote history in 2010 of kidney abscess that ruptured and had secondary sepsis and was quite ill. She notes today's pain feels similar. She denies any fevers, chills, nausea, vomiting, chest pain or shortness of breath. Patient denies any dysuria or hematuria. Current pain 08/05. Home Medications Medication Instructions Recorded Confirmed Type cholecalciferol (vitamin D3) 25 1,000 unit PO HS 01/09/18 02/20/23 History mcg (1,000 unit) capsule (Vitamin D3) omega-3 fatty acids 1,000 mg 1,000 mg PO HS 01/09/18 02/20/23 History capsule aspirin 81 mg tablet,delayed 162 mg PO HS 03/28/21 02/20/23 History release magnesium oxide 500 mg tablet 500 mg PO DAILY PRN LEG CRAMPS 03/28/21 02/20/23 History metformin 500 mg tablet 500 mg PO BID 09/18/21 02/20/23 History guaifenesin 600 mg tablet, 600 mg PO BID PRN congestion #60 05/16/22 02/20/23 Rx extended release 12 hr (Mucinex) tabs Auto Titrating CPAP #1 ea 08/31/22 09/07/22 Rx albuterol sulfate 0.63 mg/3 mL 0.63 mg (3 mL) inhalation Q4H #90 09/08/22 02/20/23 Rx solution for nebulization mL ipratropium bromide 0.02 % 2.5 ml inhalation Q4H PRN 09/08/22 02/20/23 Rx solution for inhalation shortness of breath or wheezing #150 mL CPAP Supplies #1 ea 11/14/22 Rx Portable Oxygen #1 ea 11/14/22 Rx benralizumab 30 mg/mL subcutaneous 30 mg subcut .COMPLEX #3 syringes 11/21/22 02/20/23 Rx auto-injector (Fasenra Pen) Advair Diskus 500 mcg-50 mcg/dose 1 inh inhalation BID #60 ea 01/30/23 02/20/23 Rx powder for inhalation (fluticasone propion-salmeterol) albuterol sulfate 90 mcg/actuation 2 puff inhalation QID PRN 01/30/23 02/20/23 Rx aerosol inhaler (ProAir HFA) Shortness Of Breath Or Wheezing #8.5 grams umeclidinium 62.5 mcg/actuation 1 inh inhalation DAILY #30 ea 01/30/23 02/20/23 Rx blister powder for inhalation (Incruse Ellipta) nebulizers #1 ea 02/02/23 Rx ciprofloxacin HCl 500 mg tablet 500 mg PO BID #6 tabs 02/20/23 Rx (Cipro) clotrimazole-betamethasone 1 1 applic topical DIRECTED PRN 02/20/23 02/20/23 History %-0.05 % topical cream Other fluticasone propionate 50 1 spray intranasal DAILY PRN Other 02/20/23 02/20/23 History mcg/actuation nasal spray,suspension (Allergy Relief (fluticasone)) losartan 50 mg tablet 50 mg PO DAILY 02/20/23 02/20/23 History montelukast 10 mg tablet 10 mg PO QPM PRN Other 02/20/23 02/20/23 History (Singulair) oxycodone 5 mg tablet 10 mg (2 x 5 mg) PO Q6H PRN pain 02/20/23 Rx #20 tabs Allergies Allergy/AdvReac Type Severity Reaction Status Date / Time Penicillins Allergy Intermediate RESP. Verified 09/07/22 10:26 ISSUES Sulfa (Sulfonamide Allergy Intermediate RESP. Verified 09/07/22 10:26 Antibiotics) ISSUES ceftriaxone Allergy Verified 02/20/23 07:10 Past Med/Surg History Medical History Diabetes DVT prophylaxis Chest pain Obstructive sleep apnea of adult Acute pyelonephritis Sepsis Renal abscess Leukocytosis Herpes labialis Gram negative septicemia Fever E. coli septicemia H/O Clostridium difficile infection GERD (gastroesophageal reflux disease) COPD (chronic obstructive pulmonary disease) Surgical History H/O colonoscopy "11/2013- hyperplastic polyp, diverticulosis" S/P "1982" S/P cholecystectomy Family History Other Cancer Diabetes Gallbladder disease Hypertension Lung disease Social History Smoking Status: Current every day smoker Tobacco Type: Cigarettes Second Hand Exposure: No; Do You Dip or Chew Tobacco: No; Hx Alcohol Use: No Hx Substance Use: No Preferred Language: Greenlandic Communication Ability: Effective Pe Manager Required: No Beliefs That Will Affect Care: None marital status: Current Living Situation: Alone current occupational status: employed Feels Safe at Home: Yes Assistive Devices: None Review of Systems A total of 10 systems reviewed and were otherwise negative Physical Exam Vital Signs Vital Signs - 24 hr 02/20/23 03:45 02/20/23 05:25 02/20/23 06:37 Temperature 36.1 C L Temperature Source Temporal Artery Scan Pulse Rate 88 Pulse Rate [Right Finger] 75 88 Pulse Rhythm [Right Finger] Regular Pulse Strength [Right Finger] Normal Respiratory Rate 18 16 16 Respiratory Effort / Characteristics Non-Labored Non-Labored Spontaneous Non-Labored Spontaneous Respiratory Depth Normal Normal Normal Respiratory Pattern Regular Regular Blood Pressure 141/85 H Blood Pressure [Right Arm] 153/104 H 137/96 Blood Pressure Mean 103 Blood Pressure Mean [Right Arm] 120 109 Pulse Oximetry 94 93 98 Oxygen Delivery Method Room Air Room Air Room Air Sepsis Recent Fever Within 48 Hours No Sepsis New/Unexplained Change in Mental Status No Sepsis Action Taken by Nursing No Action Required 02/20/23 07:10 02/20/23 07:32 Temperature Temperature Source Pulse Rate Pulse Rate [Right Finger] 84 84 Pulse Rhythm [Right Finger] Pulse Strength [Right Finger] Respiratory Rate Respiratory Effort / Characteristics Respiratory Depth Respiratory Pattern Blood Pressure Blood Pressure [Right Arm] Blood Pressure Mean Blood Pressure Mean [Right Arm] Pulse Oximetry 91 92 Oxygen Delivery Method Room Air Room Air Sepsis Recent Fever Within 48 Hours Sepsis New/Unexplained Change in Mental Status Sepsis Action Taken by Nursing VITAL SIGNS - Vital signs and nursing notes were reviewed. Stable and afebrile. GENERAL -67-year-old female appearing her stated age who is in no acute distress. Communicates well with provider and answers questions appropriately. SKIN - Without rashes. No meningeal or petechial rash. The skin overlying the back is unremarkable. No herpetic lesions. HEAD - NC/AT. EYES - Sclera anicteric. EARS - No deformities of external structures noted on gross examination bilaterally. NOSE - Midline and without cyanosis. No epistaxis or purulent drainage noted. MOUTH/OROPHARYNX - Without perioral cyanosis.No nuchal rigidity. LUNGS - Chest wall symmetric without accessory muscle use, intercostals retractions, or central cyanosis. Normal vesicular breath sounds CTA B/L. No wheezes, rales, or rhonchi appreciated. CARDIAC - RRR with S1/S2. No murmur, rubs, or gallops appreciated. ABDOMEN - Abdominal contour normal without pulsations or visible masses. BS normoactive all four quadrants. No tenderness, palpable masses, hepatosplenomegaly, or ascites noted. All Musculoskeletalthere is no reproducible tenderness to palpation overlying the right flank region or paraspinous musculature of the T or L-spine on the right EXTREMITIES - No clubbing or peripheral cyanosis. +5/5 strength noted in UE/LE bilaterally. NEUROLOGIC - Cranial nerves II through XII grossly intact. PSYCH - A&Ox3 and cooperates fully with examiner. Pt is very pleasant and interacts well with examiner. Course Administered Medications Discontinued Medications Albuterol (Albut/Ipratrop 3mg/0.5mg Neb 3 Ml Vial) 3 ml NEB NOW STA; Protocol Stop: 02/20/23 07:08 Last Admin: 02/20/23 07:09 Dose: 3 ml Documented By: ML Diphenhydramine HCl (Diphenhydramine 50 Mg/Ml Vial) 25 mg IV NOW STA Stop: 02/20/23 06:59 Last Admin: 02/20/23 07:01 Dose: 25 mg Documented By: ML Fluticasone Propionate (Fluticasone Propionate Na Spr 16 Gm Btl) 1 sprays NA DAILY LILLY Stop: 03/22/23 10:08 Last Admin: 02/20/23 10:32 Dose: Not Given Documented By: ML Fluticasone/Vilanterol (Fluticasone/Vilanterol 100/25mcg 14 Puffs/Inhaler) 1 puffs INH DAILY LILLY; Protocol Stop: 03/22/23 10:29 Last Admin: 02/20/23 10:33 Dose: Not Given Documented By: ELAINE Ceftriaxone Sodium (Rocephin) 2,000 mg in 50 mls @ 100 mls/hr IV NOW STA Stop: 02/20/23 06:53 Last Infusion: 02/20/23 07:04 Dose: Infused Documented By: Admin: 02/20/23 06:34 Dose: 100 mls/hr Documented By: LAURA Sodium Chloride (Nss) 500 mls @ 500 mls/hr IV .Q1H ONE Stop: 02/20/23 08:23 Last Admin: 02/20/23 08:17 Dose: 500 mls/hr Documented By: ELAINE Umeclidinium [place] (Umeclidinium [place] 62.5mcg/Blister 7 Puffs/Inhaler) 1 puffs INH DAILY LILLY Stop: 03/22/23 10:08 Last Admin: 02/20/23 10:33 Dose: Not Given Documented By: ELAINE Medical Decision Making Laboratory Data 02/20/23 04:00 02/20/23 04:00 Lab Results 02/20/23 Range/Units 04:00 WBC 10.28 (4.8-10.8) K/ul RBC 5.10 (4.20-5.40) M/uL Hgb 15.2 (12.0-16.0) g/dl Hct 45.4 (37.0-47.0) % MCV 89.0 (80.0-100.0) fL MCH 29.8 (25.0-34.0) pg MCHC 33.5 (32.0-36.0) g/dL RDW Std Deviation 41.7 (36.4-46.3) fL RDW Coeff of [place] 12.8 (11.5-14.5) % Plt Count 282 (130-400) K/uL MPV 10.0 (9.4-12.4) fL Immature Gran % (Auto) 0.7 % Neut % (Auto) 63.6 % Lymph % (Auto) 24.1 % Butts % (Auto) 8.4 % Eos % (Auto) 2.1 % Baso % (Auto) 1.1 % Neut # (Auto) 6.54 H (1.40-6.50) K/uL Lymph # (Auto) 2.48 (1.20-3.40) K/uL Butts # (Auto) 0.86 H (0.11-0.59) K/uL Eos # (Auto) 0.22 (0.00-0.50) K/uL Baso # (Auto) 0.11 (0.00-0.20) K/uL Immature Gran # (Auto) 0.07 (0.01-0.20) K/uL Sodium 137 (136-145) mmol/L Potassium 4.0 (3.5-5.1) mmol/L Chloride 104 (98-107) mmol/L Carbon Dioxide 25 (21-32) mmol/L Anion Gap 8 (3-11) BUN 14 (6-23) mg/dl Creatinine 1.00 (0.6-1.2) mg/dl Est Cr Clr Drug Dosing 68.4 ml/min Est GFR ( Amer) 68.0 ml/min Est GFR (Non-Af Amer) 58.7 ml/min BUN/Creatinine Ratio 14.0 (10-20) Glucose 130 H (70-99(Fasting)) mg/dl Calcium 9.8 (8.6-10.3) mg/dl Total Bilirubin 0.4 (0.2-1.0) mg/dl AST 12 L (13-39) U/L ALT 12 (7-52) U/L Alkaline Phosphatase 62 (34-104) U/L Total Protein 7.6 (6.0-8.3) gm/dl Albumin 4.2 (3.4-5.0) gm/dl Globulin 3.4 (2.5-4.0) gm/dl Albumin/Globulin Ratio 1.2 (0.9-2) Urine Color Yellow Urine Appearance Clear (Clear) Urine pH 5.0 (4.5-7.5) Ur Specific [place] 1.013 (1.000-1.030) Urine Protein Negative (Negative) Urine Glucose (UA) Negative (Negative) Urine Ketones Negative (Negative) Urine Blood 2+ H (Negative) Urine Nitrite Positive A (Negative) Urine Bilirubin Negative (Negative) Urine Urobilinogen Negative (Negative) Ur Leukocyte Esterase Negative (Negative) Urine WBC (Auto) 1-5 (0-5) /hpf Urine RBC (Auto) 5-10 H (0-4) /hpf U Hyaline Cast (Auto) 1-5 (0-5) /lpf U Epithel Cells (Auto) >30 H (0-5) /lpf Urine Bacteria (Auto) 4+ H (Negative) Imaging Data Radiologist's Impression: Abdomen/Pelvis CT 02/20/23 04:40 CT OF THE ABDOMEN AND PELVIS WITHOUT CONTRAST CLINICAL HISTORY: Right flank pain, uti. COMPARISON STUDY: CT of the abdomen and pelvis September 18, 2021. TECHNIQUE: Axial images of the abdomen and pelvis were obtained without IV contrast. Images were reviewed in the axial, sagittal, and coronal planes. Automated exposure control was utilized for the study. A dose lowering technique was utilized adhering to the principles of ALARA. FINDINGS: A 6 mm x 4 mm ureterovesical junction calculus results in moderate right hydronephrosis. Punctate calculus within the upper pole of the left kidney is noted. There are no left ureteral calculi. No pneumatosis, free air or portal venous gas is present. Evaluation of the remainder of the abdomen and pelvis is suboptimal on this unenhanced exam. A low-attenuation 1.8 cm left adrenal nodule is unchanged. This represents an adenoma. Spleen, right adrenal gland and pancreas are unremarkable. There is no biliary or pancreatic ductal dilatation status post cholecystectomy. There is no evidence for a bowel obstruction. Colonic diverticulosis without evidence for acute diverticulitis. No bowel wall thickening is identified on unenhanced exam. The appendix is not visualized. No right abdominal inflammation is identified. There is no lymphadenopathy. No ascites. No acute fractures within the visualized skeletal structures. IMPRESSION: 6 mm x 4 mm right ureterovesical junction calculus which results in moderate right hydronephrosis. ACT 112: Negative or not required by law. Electronically signed by: Catalino Pichardo M.D. 02/20/2023 6:42 AM MDM Narrative Patient was seen and evaluated as above in room A10. Review was performed of nursing notes and vital signs. I did review pertinent previous visits and patient history. After obtaining a thorough history and physical examination the above work up was performed. Patient presents to us today for evaluation of right flank pain that began this past evening. She is well-appearing and nontoxic on examination. The discomfort is not reproducible on examination. Options of care were discussed with the patient. IV access was established. Labs were drawn. Benefit versus risk of CT scan discussed with the patient as well as benefit versus risk of IV contrast. CT scan was obtained without contrast as the patient does note recent change in kidney function. She respectfully declined pain medication. Labs reveal no leukocytosis or concerning anemia. No emergent metabolic disturbance. Hyperglycemia 130. Urinalysis is concerning for infection. I did review the EMR as well as speak with our pharmacist to confirm patient has received ceftriaxone before. She has received this in our institution without issue before. After discussing benefit versus risk with the patient we agreed to proceed with 2 g of IV ceftriaxone. She did well and then developed some itching. IV Benadryl was ordered. No hives. No trouble breathing. She did have few coughs. She then noted that she would be due for her breathing treatment in the morning which was ordered. No throat swelling. No signs of anaphylaxis. I did update the allergy list to reflect ceftriaxone. CT scan was obtained of the abdomen/pelvis without contrast. There is an obstructing stone noted with moderate hydronephrosis on the right. This is the same side as her pain. Labs reveal no leukocytosis or concerning anemia. No emergent metabolic disturbance. Urinalysis as noted above is concerning for UTI. I discussed this with the on-call urology service and spoke with MARTY Stewart. At this time we agree with inpatient management noting the patient's comorbidities and past history with urologic infections. Patient is to be NPO. Case discussed with the hospitalist service. Please refer to further documentation regarding his stay. GCS: 15 In the evaluation and treatment of this patient the following differential diagnoses were entertained: UTI, pyelonephritis, obstructing stone, diverticulitis, among others Impression & Plan Complicated urinary tract infection, Hydronephrosis, Ureter, calculus Discharge Plan Visit Data Chief Complaint: Kidney Stone Stated Complaint: KIDNEY STONE ED Provider: Olive Pinzon ED Midlevel Provider: Elmer Cabrera Discharge Problem: Complicated urinary tract infection, Hydronephrosis, Ureter, calculus Patient Disposition: Admitted As Inpatient Condition: Good Discharge Instructions Interventions: ED Discharge Assessment Last Done: 02/20/23 10:10
[2023-02-20] MEDS ORDERED: cefTRIAXone SODIUM 2,000 MG/50 ML BAG IV STA (06:24)
--- NOTE | 2023-02-20 06:45 | CT Scan Report ---
CT OF THE ABDOMEN AND PELVIS WITHOUT CONTRAST CLINICAL HISTORY: Right flank pain, uti. COMPARISON STUDY: CT of the abdomen and pelvis September 18, 2021. TECHNIQUE: Axial images of the abdomen and pelvis were obtained without IV contrast. Images were revi ewed in the axial, sagittal, and coronal planes. Automated exposure control was utilized for the dmitri dy. A dose lowering technique was utilized adhering to the principles of ALARA. FINDINGS: A 6 mm x 4 mm ureterovesical junction calculus results in moderate right hydronephrosis. Pu nctate calculus within the upper pole of the left kidney is noted. There are no left ureteral calcul i. No pneumatosis, free air or portal venous gas is present. Evaluation of the remainder of the abdom en and pelvis is suboptimal on this unenhanced exam. A low-attenuation 1.8 cm left adrenal nodule is unchanged. This represents an adenoma. Spleen, right adrenal gland and pancreas are unremarkable. The re is no biliary or pancreatic ductal dilatation status post cholecystectomy. There is no evidence fo r a bowel obstruction. Colonic diverticulosis without evidence for acute diverticulitis. No bowel wal l thickening is identified on unenhanced exam. The appendix is not visualized. No right abdominal inf lammation is identified. There is no lymphadenopathy. No ascites. No acute fractures within the visua lized skeletal structures. IMPRESSION: 6 mm x 4 mm right ureterovesical junction calculus which results in moderate right hydro nephrosis. ACT 112: Negative or not required by law. Electronically signed by: Catalino Pichardo M.D. 02/20/2023 6:42 AM
[2023-02-20] MEDS ORDERED: diphenhydrAMINE 50 MG/ML VIAL IV STA (06:58)
[2023-02-20] MEDS ORDERED: ALBUT/IPRATROP 3MG/0.5MG NEB 3 ML VIAL NEB STA (07:07)
[2023-02-20] MEDS ORDERED: SODIUM CHLORIDE 0.9% 500 ML IV ONE (07:24)
[2023-02-20] MEDS ORDERED: DEXTROSE 50% 50 ML SYRINGE IV PRN (07:57)
[2023-02-20] MEDS ORDERED: GLUCAGON FOR INJ 1 MG VIAL SQ PRN (07:57)
[2023-02-20] MEDS ORDERED: GLUCOSE 10 TAB/TUBE PO PRN (07:57)
[2023-02-20] MEDS ORDERED: CARBOHYDRATES FOR HYPOGLYCEMIA PO PRN (07:57)
[2023-02-20] MEDS ORDERED: GLUCOSE 40% GEL 15 GM TUBE PO PRN (07:57)
--- NOTE | 2023-02-20 07:58 | History & Physical Report ---
Date of Service February 20, 2023 Assessment & Plan (1) Hydronephrosis: Plan: Right-sided, moderate hydronephrosis, 6 x 4 mm UVJ calculus Abnormal urinalysis on presentation suggest UTI POA Hydration antibiotics pain control, was given ceftriaxone with itching likely may need to transition antibiotics to quinolone due to allergies Urology consultation, n.p.o. status, parenteral pain medications offered. (2) COPD with emphysema: Plan: Chronic respiratory failure with hypoxia chronically on oxygen Umeclidinium plus Advair plus nebulized medications, singular Benralizumab Patient history of obstructive sleep apnea using CPAP at night (3) Diabetes: Plan: Patient typically on metformin Last hemoglobin A1c 7.2 Will offer loose sliding scale Plan Patient typically on aspirin 162 a day this is on hold due to possible procedure will use SCDs for DVT prevention History of Present Illness Primary Care Provider: Meghan Watts MD 67-year-old female with a kidney stone, reportedly also a renal abscess at 1 time who presents with right flank pain and is found to have a 6 x 4 mm right renal stone with moderate hydronephrosis is an abnormal urine presentation consistent with UTI POA. Her medical issues revolve around asthma/COPD on a monoclonal antibody and nebulized medications, nighttime CPAP, diabetes. In the emergency department she was hydrated given ceftriaxone with moderate itching she has allergies to penicillin and sulfa Urology was consulted in ER recommended medical admission keeping n.p.o. for possible intervention on 02/20/2023 Allergies Allergy/AdvReac Type Severity Reaction Status Date / Time Penicillins Allergy Intermediate RESP. Verified 09/07/22 10:26 ISSUES Sulfa (Sulfonamide Allergy Intermediate RESP. Verified 09/07/22 10:26 Antibiotics) ISSUES ceftriaxone Allergy Verified 02/20/23 07:10 Home Medications Medication Instructions Recorded Confirmed Type cholecalciferol (vitamin D3) 25 1,000 unit PO HS 01/09/18 02/20/23 History mcg (1,000 unit) capsule (Vitamin D3) omega-3 fatty acids 1,000 mg 1,000 mg PO HS 01/09/18 02/20/23 History capsule aspirin 81 mg tablet,delayed 162 mg PO HS 03/28/21 02/20/23 History release magnesium oxide 500 mg tablet 500 mg PO DAILY PRN LEG CRAMPS 03/28/21 02/20/23 History metformin 500 mg tablet 500 mg PO BID 09/18/21 02/20/23 History guaifenesin 600 mg tablet, 600 mg PO BID PRN congestion #60 05/16/22 02/20/23 Rx extended release 12 hr (Mucinex) tabs Auto Titrating CPAP #1 ea 08/31/22 09/07/22 Rx albuterol sulfate 0.63 mg/3 mL 0.63 mg (3 mL) inhalation Q4H #90 09/08/22 02/20/23 Rx solution for nebulization mL ipratropium bromide 0.02 % 2.5 ml inhalation Q4H PRN 09/08/22 02/20/23 Rx solution for inhalation shortness of breath or wheezing #150 mL CPAP Supplies #1 ea 11/14/22 Rx Portable Oxygen #1 ea 11/14/22 Rx benralizumab 30 mg/mL subcutaneous 30 mg subcut .COMPLEX #3 syringes 11/21/22 02/20/23 Rx auto-injector (Fasenra Pen) Advair Diskus 500 mcg-50 mcg/dose 1 inh inhalation BID #60 ea 01/30/23 02/20/23 Rx powder for inhalation (fluticasone propion-salmeterol) albuterol sulfate 90 mcg/actuation 2 puff inhalation QID PRN 01/30/23 02/20/23 Rx aerosol inhaler (ProAir HFA) Shortness Of Breath Or Wheezing #8.5 grams umeclidinium 62.5 mcg/actuation 1 inh inhalation DAILY #30 ea 01/30/23 02/20/23 Rx blister powder for inhalation (Incruse Ellipta) nebulizers #1 ea 02/02/23 Rx ciprofloxacin HCl 500 mg tablet 500 mg PO BID #6 tabs 02/20/23 Rx (Cipro) clotrimazole-betamethasone 1 1 applic topical DIRECTED PRN 02/20/23 02/20/23 History %-0.05 % topical cream Other fluticasone propionate 50 1 spray intranasal DAILY PRN Other 02/20/23 02/20/23 History mcg/actuation nasal spray,suspension (Allergy Relief (fluticasone)) losartan 50 mg tablet 50 mg PO DAILY 02/20/23 02/20/23 History montelukast 10 mg tablet 10 mg PO QPM PRN Other 02/20/23 02/20/23 History (Singulair) oxycodone 5 mg tablet 10 mg (2 x 5 mg) PO Q6H PRN pain 02/20/23 Rx #20 tabs Past Med/Surg History Medical History Diabetes DVT prophylaxis Chest pain Obstructive sleep apnea of adult Acute pyelonephritis Sepsis Renal abscess Leukocytosis Herpes labialis Gram negative septicemia Fever E. coli septicemia H/O Clostridium difficile infection GERD (gastroesophageal reflux disease) COPD (chronic obstructive pulmonary disease) Surgical History H/O colonoscopy "11/2013- hyperplastic polyp, diverticulosis" S/P "1982" S/P cholecystectomy Family History Other Cancer Diabetes Gallbladder disease Hypertension Lung disease Social History Smoking Status: Current every day smoker Tobacco Type: Cigarettes Second Hand Exposure: No; Do You Dip or Chew Tobacco: No; Hx Alcohol Use: No Hx Substance Use: No Preferred Language: [place]i Communication Ability: Effective Hammer Heater Required: No Beliefs That Will Affect Care: None marital status: Current Living Situation: Alone current occupational status: employed Feels Safe at Home: Yes Assistive Devices: None Review of Systems Review of Systems: Mild distress and fatigue no headache, no visual changes no speech or swallowing issues no chest pain, pressure or palpitations no shortness of breath, cough or wheezes Right-sided intermittently sharp abdominal pain associated with nausea but no vomiting no real urine changes in dysuria, hematuria or frequency no focal joint pain or swelling no back pain, does have right side CVA tenderness but no radicular pain no bruising, bleeding or rashes no focal signs of weakness or numbness or altered sensation no complaints of anxiety or depression.. Physical Exam Physical Exam: The patient appeared well nourished and normally developed. Vital signs as documented. Head exam is normocephalic atraumatic Neck is without JVD, thyromegaly, or carotid bruits. Lungs are clear to auscultation, no focal loss of breath sounds Cardiac exam, Rhythm is regular.. No murmurs, rubs or gallops. Abdominal exam reveals normal bowel sounds, soft non tender, no masses Does have reproducible tenderness to the right CVA area Extremities are nonedematous and both pedal pulses are present Neurologic exam is alert and oriented, no focal loss of strength or sensation Skin is without bruises or rashes Psychologically is without concerns for anxiety or depression.. Results & Data Results & Data Vital Signs (Past 12 Hours) Vital Signs Temp Pulse Pulse Resp BP BP Pulse Ox 02/20/23 07:32 84 92 02/20/23 07:10 84 91 02/20/23 06:37 88 16 137/96 98 02/20/23 05:25 75 16 153/104 H 93 02/20/23 03:45 97.0 F L 88 18 141/85 H 94 O2 Del Method 02/20/23 07:32 Room Air 02/20/23 07:10 Room Air 02/20/23 06:37 Room Air 02/20/23 05:25 Room Air 02/20/23 03:45 Room Air Laboratory Results Reviewed CBC Reviewed chemistry Reviewed urine analysis Reviewed results of CT scan abdomen pelvis Diagnostic Findings Chest x-ray and EKG reviewed felt stable to proceed to surgery Code Status & VTE Plan VTE Prophylaxis Plan VTE Prophylaxis will be ordered: Yes PG Care Time/CCT Total # of Minutes Spent Total Time Spent with Patient: Total time spent is greater than 50% in coordination of care (as documented) at patient's floor/unit and/or counseling patient: Coding Level of Care Code 78073 INT INP/OBS CARE 2/55MIN Diagnoses Hydronephrosis N13.30 COPD with emphysema J43.9 Diabetes E11.9
--- NOTE | 2023-02-20 09:20 | Urology Consultation ---
Date of Consultation February 20, 2023 Assessment & Plan (1) Acute UTI: (2) Ureteral stone with hydronephrosis: Plan 67yo/F admitted with an obstructing 6mm right UVJ stone and concern for infection - Afebrile and hemodynamically stable. - Labs reviewed -WBC 10.28, creatinine 1.00. - Urinalysis suggestive of infection, culture pending. - We discussed acute stone management with cystoscopy, stent placement, possible stone treatment. Ureteral stents were discussed as well as postoperative issues and pain management. She is aware a second procedure may be needed for stone treatment. Risks and benefits were discussed. All questions were answered. - Will plan to proceed to OR today for cystoscopy, right retrograde pyelogram, right ureteral stent placement, possible ureteroscopy and stone treatment depending on findings with Dr. Saxena. - Keep NPO. - IV ceftriaxone given in the ED. - Continue supportive care and pain management as needed. - Urology will follow. History of Present Illness History of Present Illness 67-year-old female who presented to the ED on 02/20/2023 with reports of right flank pain. CT abdomen pelvis on arrival demonstrated a 6 mm x 4 mm right ureterovesical junction calculus with moderate right hydronephrosis. On arrival, she was afebrile and hemodynamically stable. Labs showing no leukocytosis and normal renal function. Urinalysis suggestive of infection with 2+ blood, positive nitrite, negative LE, 4+ bacteria. Urine culture collected and pending. ED course: IV fluids, ceftriaxone. She reported moderate itching with ceftriaxone and was given a dose of Benadryl. Patient admitted to medicine service for continued care and management. Patient examined at bedside in the ED. Awake, resting in bed on arrival. No acute distress. She reports nothing to eat or drink except for a few sips of water since yesterday evening. Pain is currently well-controlled. Denies fevers, chills, nausea, vomiting at present. Voiding without issue. Denies hematuria. Notes some dysuria. She reports a history of kidney stones with spontaneous passage. Also reports a remote history of renal abscess and sepsis in 2010. She has never seen a urologist. Allergies Allergy/AdvReac Type Severity Reaction Status Date / Time Penicillins Allergy Intermediate RESP. Verified 09/07/22 10:26 ISSUES Sulfa (Sulfonamide Allergy Intermediate RESP. Verified 09/07/22 10:26 Antibiotics) ISSUES ceftriaxone Allergy Verified 02/20/23 07:10 Home Medications Medication Instructions Recorded Confirmed Type cholecalciferol (vitamin D3) 25 1,000 unit PO HS 01/09/18 09/07/22 History mcg (1,000 unit) capsule (Vitamin D3) omega-3 fatty acids 1,000 mg 1,000 mg PO HS 01/09/18 09/07/22 History capsule aspirin 81 mg tablet,delayed 162 mg PO HS 03/28/21 09/07/22 History release magnesium oxide 500 mg tablet 500 mg PO DAILY PRN LEG CRAMPS 03/28/21 09/07/22 History metformin 500 mg tablet 500 mg PO BID 09/18/21 09/07/22 History zolpidem 5 mg tablet 5 mg PO ONCE #2 tabs 05/08/22 09/07/22 Rx guaifenesin 600 mg tablet, 600 mg PO BID PRN congestion #60 05/16/22 09/07/22 Rx extended release 12 hr (Mucinex) tabs ibuprofen 200 mg tablet 600 mg PO Q6H PRN Pain 07/13/22 09/07/22 History Auto Titrating CPAP #1 ea 08/31/22 09/07/22 Rx albuterol sulfate 0.63 mg/3 mL 0.63 mg (3 mL) inhalation Q4H #90 09/08/22 09/08/22 Rx solution for nebulization mL ipratropium bromide 0.02 % 2.5 ml inhalation Q4H PRN 09/08/22 09/08/22 Rx solution for inhalation shortness of breath or wheezing #150 mL fluticasone propionate 50 1 spray intranasal DAILY #24 grams 11/10/22 Rx mcg/actuation nasal spray,suspension (Allergy Relief (fluticasone)) CPAP Supplies #1 ea 11/14/22 Rx Portable Oxygen #1 ea 11/14/22 Rx benralizumab 30 mg/mL subcutaneous 30 mg subcut .COMPLEX #3 syringes 11/21/22 Rx auto-injector (Fasenra Pen) Advair Diskus 500 mcg-50 mcg/dose 1 inh inhalation BID #60 ea 01/30/23 01/30/23 Rx powder for inhalation (fluticasone propion-salmeterol) albuterol sulfate 90 mcg/actuation 2 puff inhalation QID PRN 01/30/23 01/30/23 Rx aerosol inhaler (ProAir HFA) Shortness Of Breath Or Wheezing #8.5 grams montelukast 10 mg tablet 10 mg PO QPM #30 tabs 01/30/23 01/30/23 Rx (Singulair) umeclidinium 62.5 mcg/actuation 1 inh inhalation DAILY #30 ea 01/30/23 01/30/23 Rx blister powder for inhalation (Incruse Ellipta) nebulizers #1 ea 02/02/23 Rx Patient History Medical History Diabetes DVT prophylaxis Chest pain Obstructive sleep apnea of adult Acute pyelonephritis Sepsis Renal abscess Leukocytosis Herpes labialis Gram negative septicemia Fever E. 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 Beliefs That Will Affect Care: None marital status: Current Living Situation: Alone current occupational status: employed Feels Safe at Home: Yes Assistive Devices: None Review of Systems Review of Systems: All systems reviewed & are unremarkable except as noted in HPI & below Physical Exam Constitutional: well developed and well nourished; no acute distress Neck: normal visual inspection Respiratory: normal respiratory effort; no respiratory distress and no labored breathing Musculoskeletal: Head/Neck/Chest: normocephalic Skin: No visible rashes or lesions to exposed skin areas Neurologic: moves all extremities and awake Psychiatric: A+Ox3, euthymic affect Results & Data Vital Signs (Past 12 Hours) Vital Signs Temp Pulse Pulse Resp BP BP Pulse Ox 02/20/23 08:18 84 20 131/83 91 02/20/23 07:48 92 02/20/23 07:47 87 L 02/20/23 07:32 84 92 02/20/23 07:10 84 91 02/20/23 06:37 88 16 137/96 98 02/20/23 05:25 75 16 153/104 H 93 02/20/23 03:45 36.1 C L 88 18 141/85 H 94 O2 Del Method O2 Flow Rate 02/20/23 08:18 Room Air 02/20/23 07:48 Nasal Cannula 2 02/20/23 07:47 Room Air 02/20/23 07:32 Room Air 02/20/23 07:10 Room Air 02/20/23 06:37 Room Air 02/20/23 05:25 Room Air 02/20/23 03:45 Room Air PG Care Time/CCT Total # of Minutes Spent Total Time Spent with Patient: Total time spent is greater than 50% in coordination of care (as documented) at patient's floor/unit and/or counseling patient: Coding Level of Care Code 30469 INT INP/OBS CARE 2/55MIN Diagnoses Acute UTI N39.0 Ureteral stone with hydronephrosis N13.2
[2023-02-20] MEDS ORDERED: FLUTICASONE PROPIONATE NA SPR 16 GM BTL SCH (10:09)
[2023-02-20] MEDS ORDERED: MoRPHine SULFATE 4 MG/ML 1 ML CARP\\VIAL IV PRN (10:09)
[2023-02-20] MEDS ORDERED: IBUPROFEN 600 MG TAB PO PRN (10:09)
[2023-02-20] MEDS ORDERED: oxyCODONE HCL IR 5 MG TAB (IMMEDIATE RELEASE) PO PRN (10:09)
[2023-02-20] MEDS ORDERED: NON-FORMULARY MEDICATION (Albuterol Sulfate 0.63 mg/3 mL solution for nebulization) INH SCH (10:09)
[2023-02-20] MEDS ORDERED: MoRPHine SULFATE 2 MG/ML CARP IV PRN (10:09)
[2023-02-20] MEDS ORDERED: ACETAMINOPHEN 325 MG TAB PO PRN (10:09)
[2023-02-20] MEDS ORDERED: ONDANSETRON INJ 2 MG/ML 2 ML VIAL IV PRN (10:09)
[2023-02-20] MEDS ORDERED: IPRATROPIUM BROMIDE NEB SOLN 0.02% 2.5 ML VIAL INH PRN (10:09)
[2023-02-20] MEDS ORDERED: UMECLIDINIUM BROMIDE 62.5MCG/BLISTER 7 PUFFS/INHALER INH SCH (10:09)
[2023-02-20] MEDS ORDERED: ALBUTEROL HFA 8 GM INHALER INH PRN (10:09)
[2023-02-20] MEDS ORDERED: guaiFENesin 600 MG TABCR PO PRN (10:09)
[2023-02-20] MEDS ORDERED: MAGNESIUM OXIDE 400 MG TAB PO PRN (10:17)
[2023-02-20] MEDS ORDERED: ALBUT/IPRATROP 3MG/0.5MG NEB 3 ML VIAL INH PRN (10:21)
[2023-02-20] MEDS ORDERED: FLUTICASONE/VILANTEROL 100/25MCG 14 PUFFS/INHALER INH SCH (10:30)
--- NOTE | 2023-02-20 10:30 | Anesthesiology Consultation ---
Date of Service February 20, 2023 Assessment & Plan (1) Encounter for pre-operative examination: Chart Review Chart Review: Acceptable Risk for Surgery History Surgery Operation Date: 02/20/23 11:20 Proposed Procedures p Cystoscopy Right Retrograde Pyelogram, Ureteral Stent PLacement, Possible Ureteroscopy, Laser Lithotriopsy Stone Treatment - Jeff Saxena MD Height/Weight Height: 5 ft 8 in Weight: 100 kg Allergies Allergy/AdvReac Type Severity Reaction Status Date / Time Penicillins Allergy Intermediate RESP. Verified 09/07/22 10:26 ISSUES Sulfa (Sulfonamide Allergy Intermediate RESP. Verified 09/07/22 10:26 Antibiotics) ISSUES ceftriaxone Allergy Verified 02/20/23 07:10 Medications Home Medications Medication Instructions Recorded Confirmed Last Taken cholecalciferol (vitamin D3) 25 1,000 unit PO HS 01/09/18 02/20/23 10/01/21 mcg (1,000 unit) capsule (Vitamin D3) omega-3 fatty acids 1,000 mg 1,000 mg PO HS 01/09/18 02/20/23 10/01/21 capsule aspirin 81 mg tablet,delayed 162 mg PO HS 03/28/21 02/20/23 10/01/21 release magnesium oxide 500 mg tablet 500 mg PO DAILY PRN LEG CRAMPS 03/28/21 02/20/23 Unknown metformin 500 mg tablet 500 mg PO BID 09/18/21 02/20/23 07/12/22 guaifenesin 600 mg tablet, 600 mg PO BID PRN congestion #60 05/16/22 02/20/23 Unknown extended release 12 hr (Mucinex) tabs Auto Titrating CPAP #1 ea 08/31/22 09/07/22 Unknown albuterol sulfate 0.63 mg/3 mL 0.63 mg (3 mL) inhalation Q4H #90 09/08/22 02/20/23 Unknown solution for nebulization mL ipratropium bromide 0.02 % 2.5 ml inhalation Q4H PRN 09/08/22 02/20/23 Unknown solution for inhalation shortness of breath or wheezing #150 mL CPAP Supplies #1 ea 11/14/22 Unknown Portable Oxygen #1 ea 11/14/22 Unknown benralizumab 30 mg/mL subcutaneous 30 mg subcut .COMPLEX #3 syringes 11/21/22 02/20/23 Unknown auto-injector (Fasenra Pen) Advair Diskus 500 mcg-50 mcg/dose 1 inh inhalation BID #60 ea 01/30/23 02/20/23 Unknown powder for inhalation (fluticasone propion-salmeterol) albuterol sulfate 90 mcg/actuation 2 puff inhalation QID PRN 01/30/23 02/20/23 Unknown aerosol inhaler (ProAir HFA) Shortness Of Breath Or Wheezing #8.5 grams umeclidinium 62.5 mcg/actuation 1 inh inhalation DAILY #30 ea 01/30/23 02/20/23 Unknown blister powder for inhalation (Incruse Ellipta) nebulizers #1 ea 02/02/23 Unknown clotrimazole-betamethasone 1 1 applic topical DIRECTED PRN 02/20/23 02/20/23 Unknown %-0.05 % topical cream Other fluticasone propionate 50 1 spray intranasal DAILY PRN Other 02/20/23 02/20/23 Unknown mcg/actuation nasal spray,suspension (Allergy Relief (fluticasone)) losartan 50 mg tablet 50 mg PO DAILY 02/20/23 02/20/23 Unknown montelukast 10 mg tablet 10 mg PO QPM PRN Other 02/20/23 02/20/23 Unknown (Singulair) Past Medical History Medical History Diabetes DVT prophylaxis Chest pain Obstructive sleep apnea of adult Acute pyelonephritis Sepsis Renal abscess Leukocytosis Herpes labialis Gram negative septicemia Fever E. coli septicemia H/O Clostridium difficile infection GERD (gastroesophageal reflux disease) COPD (chronic obstructive pulmonary disease) Past Family History Family History Other Cancer Diabetes Gallbladder disease Hypertension Lung disease Past Surgical History Surgical History H/O colonoscopy "11/2013- hyperplastic polyp, diverticulosis" S/P "1982" S/P cholecystectomy Social History Smoking Status: Current every day smoker tobacco type: cigarettes Do You Dip or Chew Tobacco: No Hx Alcohol Use: No Hx Substance Use: No substance use type: does not use Physical Exam Vital Signs Last Vital Signs Temp 36.1 C L 02/20/23 03:45 Pulse 84 02/20/23 08:18 Resp 20 02/20/23 08:18 BP 131/83 02/20/23 08:18 Pulse Ox 91 02/20/23 08:18 O2 Del Method Room Air 02/20/23 08:18 O2 Flow Rate 2 02/20/23 07:48 Testing Laboratory Results 02/20/23 04:00 02/20/23 04:00 Urine Color Yellow 02/20/23 04:00 Urine Appearance Clear (Clear) 02/20/23 04:00 Urine pH 5.0 (4.5-7.5) 02/20/23 04:00 Ur Specific [place] 1.013 (1.000-1.030) 02/20/23 04:00 Urine Protein Negative (Negative) 02/20/23 04:00 Urine Glucose (UA) Negative (Negative) 02/20/23 04:00 Urine Ketones Negative (Negative) 02/20/23 04:00 Urine Nitrite Positive (Negative) A 02/20/23 04:00 Ur Leukocyte Esterase Negative (Negative) 02/20/23 04:00 Urine WBC (Auto) 1-5 /hpf (0-5) 02/20/23 04:00 Urine RBC (Auto) 5-10 /hpf (0-4) H 02/20/23 04:00 U Hyaline Cast (Auto) 1-5 /lpf (0-5) 02/20/23 04:00 U Epithel Cells (Auto) >30 /lpf (0-5) H 02/20/23 04:00 Urine Bacteria (Auto) 4+ (Negative) H 02/20/23 04:00 02/20/23 08:16 POC Glucose 99 Laboratory Tests 05/08/21 05:35 Hemoglobin A1c 7.2 H Electrocardiogram Date: 02/20/23 Findings: + NSR @ (82) and + no change from (November 2022)
[2023-02-20] MEDS ORDERED: ATROPINE SULFATE 0.1 MG/ML 10ML SYR IV PRN (11:13)
[2023-02-20] MEDS ORDERED: fentaNYL citrate PF 100 MCG/2 ML VIAL IV PRN (11:13)
[2023-02-20] MEDS ORDERED: PROMETHAZINE HCL 6.25 MG in SODIUM CHLORIDE 0.9% 50 ML IV PRN (11:13)
[2023-02-20] MEDS ORDERED: ONDANSETRON INJ 2 MG/ML 2 ML VIAL ONE (11:17)
[2023-02-20] MEDS ORDERED: PROPOFOL IV EMULSION 10 MG/ML 20 ML VIAL IV ONE (11:17)
[2023-02-20] MEDS ORDERED: LIDOCAINE 2% 2 ML VIAL/AMP(20MG/ML) INFIL ONE (11:17)
[2023-02-20] MEDS ORDERED: DEXAMETHASONE SOD INJ 4 MG/ML VIAL ONE (11:17)
[2023-02-20] MEDS ORDERED: MIDAZOLAM HCL 1 MG/ML 2ML VIAL ONE (11:18)
[2023-02-20] MEDS ORDERED: fentaNYL citrate PF 100 MCG/2 ML VIAL ONE (11:18)
--- NOTE | 2023-02-20 11:26 | XRay Report ---
XR chest 1V portable HISTORY: 67 years-old Female Preop history of collapsed lung preoperative exam COMPARISON: 12/08/2022 TECHNIQUE: AP view of the chest FINDINGS: Cardiomediastinal and hilar silhouettes are within normal limits. No pneumothorax, pleural effusion o r airspace consolidation. Bones appear grossly intact. Mild right hemidiaphragmatic elevation. Bones appear grossly intact. IMPRESSION: No acute process. ACT 112: Negative or not required by law. The above report was generated using voice recognition software. It may contain grammatical, syntax o r spelling errors. Electronically signed by: Nabeel Dang M.D. 02/20/2023 11:24 AM
[2023-02-20] MEDS ORDERED: INSULIN ASPART PER UNIT CHARGE SC SCH (11:30)
--- NOTE | 2023-02-20 11:52 | Operative Report ---
PG Post Operative Report Pre & Post Diagnosis Operation Date: 02/20/23 11:20 Pre-Op Diagnosis: RENAL COLIC, UTI Post-Op Diagnosis: RENAL COLIC, UTI I identified the patient and participated in the time-out.: Yes Procedure Operation Date: 02/20/23 11:20 Actual Procedures p Cystoscopy, Right Ureteral Stone Extraction(Right) - Jeff Saxena MD Surgeon Jeff Saxena MD Hydrologic Modeler none Estimated Blood Loss 0 Findings Consistent with Post-Op Diagnosis Specimens Stone for chemical analysis Description of Procedure The patient was identified in the preoperative holding area, appropriate informed consents were reviewed and completed and the patient was transferred to the operative suite. Upon arrival, appropriate antibiotics and anesthesia were administered and the patient was placed in dorsal lithotomy position and prepped and draped in sterile fashion. Patient has a small cystocele, however I was able to easily navigate a 21 Ethiopian cystoscope into the bladder. The mucosa of the bladder was quite healthy, the urine was clear and there were no stones floating within the bladder but there was a stone partially visible protruding from the right ureteral orifice. This was consistent with preoperative imaging. Utilizing a 5 Ethiopian open-ended catheter was able to dislodge the stone and coax it into the bladder. I was able to collect the stone and passed off the table. I then advanced a 5 Ethiopian open-ended catheter up the ureter feeling no resistance and implying no residual stone fragments. The stone itself on gross inspection matches the stone seen on preoperative imaging so I felt comfortable leaving her without a stent. There was not purulent urine from the kidney. I decompressed her bladder and concluded the case. She was reversed of anesthesia and taken to the recovery room in stable condition. There were no complications I attest to the content of the Intraoperative Record and any orders documented therein. Any exceptions are noted below.
--- NOTE | 2023-02-20 12:01 | Electrocardiogram Report ---
Test Reason : Blood Pressure : / mmHG Vent. Rate : 082 BPM Atrial Rate : 082 BPM P-R Int : 172 ms QRS Dur : 104 ms QT Int : 410 ms P-R-T Axes : 049 024 055 degrees QTc Int : 479 ms Normal sinus rhythm Low voltage QRS Poor R wave progression, consider anterior MS vs. lead placement vs. LVH Abnormal ECG When compared with ECG of 08-DEC-2022 19:41, No significant change was found Confirmed by Jeff Camacho ([id number]) on 02/20/2023 12:01:16 PM Referred By: REFERRED SELF Confirmed By:Bernardino Camacho
--- NOTE | 2023-02-20 12:40 | Anesthesiology Progress Note ---
Date of Service February 20, 2023 Anesthesia Post Procedure Vital Signs Vital Signs: Temp Pulse Pulse Pulse Resp BP BP 02/20/23 12:35 36.2 C L 76 17 104/61 02/20/23 12:25 73 17 97/54 L 02/20/23 12:15 81 15 98/73 L 02/20/23 12:05 79 12 96/64 L 02/20/23 11:55 36.2 C L 80 14 106/68 02/20/23 08:18 84 20 131/83 02/20/23 07:48 02/20/23 07:47 02/20/23 07:32 84 02/20/23 07:10 84 02/20/23 06:37 88 16 137/96 02/20/23 05:25 75 16 153/104 H 02/20/23 03:45 36.1 C L 88 18 141/85 H Pulse Ox O2 Del Method O2 Flow Rate 02/20/23 12:35 92 Room Air 02/20/23 12:25 94 Room Air 02/20/23 12:15 92 Room Air 02/20/23 12:05 97 Oxymask 2 02/20/23 11:55 93 Oxymask 4 02/20/23 08:18 91 Room Air 02/20/23 07:48 92 Nasal Cannula 2 02/20/23 07:47 87 L Room Air 02/20/23 07:32 92 Room Air 02/20/23 07:10 91 Room Air 02/20/23 06:37 98 Room Air 02/20/23 05:25 93 Room Air 02/20/23 03:45 94 Room Air Pain Intensity Flank: Pain Intensity: 7 Transfer of Care Handoff Completed per policy Notes Mental Status: alert / awake / arousable Patient Amnestic to Procedure: Yes Nausea / Vomiting: adequately controlled Pain: adequately controlled Airway Patency, RR, SpO2: stable & adequate BP & HR: stable & adequate Hydration State: stable & adequate Anesthetic Complications: no major complications apparent
[2023-02-20 14:00] VITALS: TEMP 98.1; O2SAT 92
[2023-02-20 14:14] VITALS: BP 119/60; PULSE 74; RESP 20
--- NOTE | 2023-02-20 15:15 | Discharge Summary ---
Date of Service February 20, 2023 Admission HPI Per Admitting Provider 67-year-old female with a kidney stone, reportedly also a renal abscess at 1 time who presents with right flank pain and is found to have a 6 x 4 mm right renal stone with moderate hydronephrosis is an abnormal urine presentation consistent with UTI POA. Her medical issues revolve around asthma/COPD on a monoclonal antibody and nebulized medications, nighttime CPAP, diabetes. In the emergency department she was hydrated given ceftriaxone with moderate itching she has allergies to penicillin and sulfa Urology was consulted in ER recommended medical admission keeping n.p.o. for possible intervention on 02/20/2023 Principal Diagnosis Intractable renal colic with mild hydro Status post right stone extraction by cystoscopy Dr. Saxena 02/20/2023 Congestion of urinary tract infection present on admission Discharge Exam Patient is seen postprocedure she is awake alert appropriate she is drinking food. It will be assured that she can walk prior to discharge. Card exam is regular Discharge Data Allergies Allergy/AdvReac Type Severity Reaction Status Date / Time Penicillins Allergy Intermediate RESP. Verified 09/07/22 10:26 ISSUES Sulfa (Sulfonamide Allergy Intermediate RESP. Verified 09/07/22 10:26 Antibiotics) ISSUES ceftriaxone Allergy Verified 02/20/23 07:10 Consultations 02/20/23 07:24 ED Decision to Admit Stat 02/20/23 10:09 Consult Urology Routine Procedures Performed Operation Date: 02/20/23 11:20 Actual Procedures p Cystoscopy, Right Ureteral Stone Extraction(Right) - Jeff Saxena MD Ordered Studies 02/20/23 04:40 CT abd pelvis wo con Stat Hospital Course (1) Hydronephrosis: Right-sided, moderate hydronephrosis, 6 x 4 mm UVJ calculus Abnormal urinalysis on presentation suggest UTI POA Hydration antibiotics pain control, was given ceftriaxone with itching likely may need to transition antibiotics to quinolone due to allergies Urology consultation, 02/20 cystoscopy right ureteral stone extraction, there was no stent placed at this time. (2) COPD with emphysema: Chronic respiratory failure with hypoxia chronically on oxygen Umeclidinium plus Advair plus nebulized medications, singular Benralizumab Patient history of obstructive sleep apnea using CPAP at night (3) Diabetes: Patient typically on metformin Last hemoglobin A1c 7.2 Plan Patient typically on aspirin 162 a day patient continues to time of discharge Patient was in good condition and requested to go home given prescription for pain medication and ciprofloxacin for possible UTI Total Time Total Time Spent Total Time Spent (In Minutes): It required greater than 30 minutes to prepare this patient for discharge. Discharge Plan Discharge Items Patient Disposition: Home - Self-Care Reason For Visit: RENAL COLIC, UTI Discharge Diagnosis: right sided kideny stone s/p removal uti poa Condition on Discharge: Good Activity: Resume your previous activity Lifting: Gradually increase as tolerated Bathing: No limitations Sexual Activity: When tolerated Exercise/Sports: Gradually increase as tolerated Driving/Machine Use: Resume 1 day after discharge Non-emergency contact: Primary Care Provider Call non-emergency contact if: you have any medication questions, your symptoms worsen, your pain is worsening, you have a fever, your rectal temperature is above 100.4 and your temperature is above 101.5 Follow-up/Referrals: Jeff Saxena MD [Physician] - Meghan Watts MD [Primary Care Provider] - Diet: Carb Consistent or DM2 Addtl Attending Provider Instructions: What To Expect After Your Cystoscopy You may feel burning when you urinate (pee) for the next 2 to 3 days. Your urine may also look pink. This can happen if theres a small amount of blood in it. What To Do After Your Cystoscopy Drink at least 8 (8-ounce) cups of fluids, such as water, every day for the next few days. The liquids will help flush your bladder. This is important to help lower the amount of bleeding you may have. It also helps prevent infection. You can limit how much you drink after8 p.m.to avoid trips to the bathroom during the night. You can go back to doing your usual activities after your cystoscopy. When theres no blood in your urine, you can go back to having sexual activity. If youre feeling pain, ask your healthcare provider if its safe to take medication, such as acetaminophen (Tylenol). If you keep feeling pain after magy ing pain medication, call your healthcare provider. Read the labels on all the medications youre taking. This is very important if youre taking acetaminophen. Acetaminophen is an ingredient in many over the counter and prescription medications. Taking too much can harm your liver. Do not take more than one medication that has acetaminophen without talking with a member of your care team. When To Call Your Healthcare Provider Call your healthcare provider if you: See bright red blood or blood clots in your urine.Have pink-colored urine for more than 3 days.Feel burning when you urinate that lasts more than 3 days.Have pain that doesnt go away, even after taking pain medication.Have a fever of 100.4 F (38 C) or higher.Have shaking chills.Have lower back pain.Cannot urinate.Have little or no urine when you urinate.Have any questions or concerns about your procedure. Addtl Shoveler Provider Instructions: You will be given a Rx for an antibiotic for the next 3 days, Cipro Pending Studies at Discharge: Yes Studies:: urine culture Stand-Alone Forms: Anesthesia/Sedation, Adult, [facility], Smoking Cessation Medications and DC Order Prescriptions: New oxycodone 5 mg Tablet 10 mg PO Q6H PRN (Reason: pain) Qty: 20 0RF ciprofloxacin HCl [Cipro] 500 mg tablet 500 mg PO BID Qty: 6 0RF Continued guaifenesin [Mucinex] 600 mg tablet extended release 12hr 600 mg PO BID PRN (Reason: congestion) Qty: 60 1RF Rx Instructions: Take 1 tab p.o. twice a day for 7 days and then as needed (DME) Auto Titrating CPAP Misc See Rx Instructions .MEDSUPPLY Qty: 1 0RF Rx Instructions: Auto PAP with 5-15 cm H20. Lifetime usage. G47.33 (DME) CPAP Supplies Misc See Rx Instructions .MEDSUPPLY Qty: 1 0RF Rx Instructions: CPAP supplies, mask, headgear, filters, tubing, water chamber. G47.33 (DME) Portable Oxygen Misc See Rx Instructions .MEDSUPPLY Qty: 1 0RF Rx Instructions: Oxygen 2 liters continuous via nasal cannula on exertion with portable concentrator. TJ 99 Fasenra Pen 30 mg/mL auto-injector 30 mg subcut .COMPLEX Qty: 3 2RF Rx Instructions: Inject 30 mg subcutaneously every 4 weeks x 3 doses (loading dose), then inject 30 mg subcutaneously every 8 weeks (maintenance dose) Approved 06/21/22 until further notice under Medicare Part D Benefit (DME) nebulizers Misc See Rx Instructions miscellaneous .MEDSUPPLY Qty: 1 5RF Rx Instructions: Nebulizer and neb kits. Her current nebulizer is broken beyond repair. She is to use it 4 times a day or as directed. Lifetime need. Incruse Ellipta 62.5 mcg/actuation blister with device 1 inh inhalation DAILY Qty: 30 8RF fluticasone propion-salmeterol [Advair Diskus] 500-50 mcg/dose blister with device 1 inh INHALATION BID Qty: 60 8RF Hold Instructions: trial trelegy Rx Instructions: Needs to be Advair brand for insurance albuterol sulfate [ProAir HFA] 90 mcg/actuation HFA aerosol inhaler 2 puff INHALATION QID PRN (Reason: Shortness Of Breath Or Wheezing) Qty: 8.5 3RF ipratropium bromide 0.02 % solution 2.5 ml INHALATION Q4H PRN (Reason: shortness of breath or wheezing) Qty: 150 6RF Rx Instructions: MIX WITH ALBUTEROL FOR NEB. albuterol sulfate 0.63 mg/3 mL solution for nebulization 0.63 mg INHALATION Q4H Qty: 90 6RF Rx Instructions: MIX WITH IPRATROPIUM FOR NEB. omega-3 fatty acids 1,000 mg Capsule 1,000 mg PO HS cholecalciferol (vitamin D3) [Vitamin D3] 1,000 unit Capsule 1,000 unit PO HS aspirin 81 mg Tablet,Delayed Release (Dr/Ec) 162 mg PO HS magnesium oxide 500 mg Tablet 500 mg PO DAILY PRN (Reason: LEG CRAMPS) metformin 500 mg tablet 500 mg PO BID losartan 50 mg tablet 50 mg PO DAILY clotrimazole-betamethasone 1-0.05 % cream 1 applic TOPICAL DIRECTED PRN (Reason: Other) montelukast [Singulair] 10 mg tablet 10 mg PO QPM PRN (Reason: Other) fluticasone propionate [Allergy Relief (fluticasone)] 50 mcg/actuation spray,suspension 1 spray intranasal DAILY PRN (Reason: Other) Rx Instructions: administer into each nostril once daily Discharge Orders: Discharge Order (Routine); Ordered 02/20/23 Ordered By: Troy Cuevas/Other Patient Handouts: Preventing Deep Vein Thrombosis Admission Data Admit Date/Time: 02/20/23 07:44 Attending Provider: Troy Azevedo Admit Provider: Troy Azevedo Primary Care Provider: Meghan Watts Other Providers: Troy Azevedo; Jeff Saxena Other Interventions: Discharge Summary Assessment (RN) Last Done: 02/20/23 14:44 Coding Level of Care Code INP/OBS EV SAME DAY LV 3,85MIN Diagnoses Hydronephrosis N13.30 COPD with emphysema J43.9 Diabetes E11.9
[2023-02-20] MEDS ORDERED: MONTELUKAST SODIUM 10 MG TABLET PO SCH (21:00)
[2023-02-20] MEDS ORDERED: OMEGA-3 (PURIFIED FISH OIL) 1 GM CAP PO SCH (21:00)
[2023-02-20] MEDS ORDERED: CHOLECALCIFEROL 1,000 UNITS 25 MCG TAB PO SCH (21:00)
[2023-02-21] MEDS ORDERED: metFORMIN HCL 500 MG TAB PO SCH (09:00)
== END 2023-02-20 14:43 | disposition home or self-care (01) | DRG 690 ==
LOC: ED 03:40 → EDINP 07:44

== ENCOUNTER 2024-08-21 13:44 | Inpatient (IN) ==
[2024-08-21 14:30] LABS: Basophils # (auto) 0.09 K/uL (0.00-0.20); Basophils % (auto) 1.1 %; Eosinophils # (auto) 0.01 K/uL (0.00-0.50); Eosinophils % (auto) 0.1 %; Hemoglobin 14.7 g/dl (12.0-16.0); Immature Granulocytes # (auto) 0.04 K/uL (0.01-0.20); Immature Granulocytes % (auto) 0.5 %; Lymphocytes # (auto) 2.06 K/uL (1.20-3.40); Lymphocytes % (auto) 24.9 %; Mean Corpuscular Hemoglobin 29.5 pg (25.0-34.0); Mean Corpuscular Hgb Conc 33.4 g/dL (32.0-36.0); Mean Corpuscular Volume 88.4 fL (80.0-100.0); Mean Platelet Volume 11.2 fL (9.4-12.4); Monocytes % (auto) 7.3 %; Neutrophils # (auto) 5.46 K/uL (1.40-6.50); Neutrophils % (auto) 66.1 %; Platelet Count 167 K/uL (130-400); RDW Coefficient of Variation 13.1 % (11.5-14.5); RDW Standard Deviation 41.9 fL (36.4-46.3); Red Blood Count 4.98 M/uL (4.20-5.40); White Blood Count 8.26 K/ul (4.8-10.8)
[2024-08-21 14:35] LABS: Appearance Urine Clear (Clear); Bacteria Urine Automated 4+ (None Seen); Bilirubin Urine Negative (Negative); Blood Urine Trace (Negative); Cast Urine Automated 0-2 /lpf (0-2); Color Urine Yellow; Glucose Urine UA Negative (Negative); Ketones Urine Trace (Negative); Leukocyte Esterase Urine 1+ (Negative); Nitrite Urine Positive (Negative); Protein Urine 1+ (Negative); RBC Urine Automated 0-2 /hpf (0-2); Specific Gravity Urine 1.018 (1.000-1.030); Urobilinogen Urine Negative (Negative)
--- NOTE | 2024-08-21 14:37 | Emergency Department Note ---
Impression & Plan Complicated urinary tract infection, Weakness, Elevated blood sugar ED Provider Note NAME: JOÃO BALDERRAMA AGE: 69 SEX: F : 1955 ARRIVES VIA: Walk-In INFORMANT: Patient ED PROVIDER(S): David Baumann DO CHIEF COMPLAINT: Abdominal pain HPI: Patient is a 69-year-old female who presents to the ER with a past medical history obstructive sleep apnea and UTIs as well as diabetes who presents the ER called back in as she has a history of E. coli septicemia and urine grew out 2 different types of E. coli which were very resistant. She was called back in for admission. She denies any headache or change in vision. No chest pain or shortness of breath. No abdominal pain. She did note her urine was very cloudy and she was having issues with this several days ago. Had some cramping in the legs which is now resolved. ADDITIONAL HISTORY OBTAINED: Per HPI Chronic Medical/Social Conditions Affecting Care: Per HPI PAST MEDICAL HISTORY:See Below PAST SURGICAL HISTORY:See Below FAMILY HISTORY:See Below SOCIAL HISTORY:See Below HOME MEDICATIONS:See Below ALLERGIES:See Below VITALS:See Below PHYSICAL EXAMINATION: GENERAL: Sitting up in bed, alert, well appearing, well nourished, no distress, non-toxic EYE EXAM: normal conjunctiva. PERRL and EOM's grossly intact. OROPHARYNX: mucous membranes are moist NECK: supple, no nuchal rigidity, no adenopathy, non-tender LUNGS: Clear to auscultation. Normal chest wall mechanics HEART: no murmurs, S1 normal and S2 normal ABDOMEN: abdomen soft, non-tender, normo-active bowel sounds, no masses, no rebound or guarding. UPPER EXTREMITIES: upper extremities are grossly normal. LOWER EXTREMITIES: No pitting edema. NEURO EXAM: Normal sensorium, cranial nerves II-XII grossly intact, normal speech, no gross weakness of arms, no gross weakness of legs. MEDICAL DECISION MAKING: Patient is a 69-year-old female who presents ER with above-stated complaint. IV was established and blood work was obtained. Labs showed no significant leukocytosis or anemia. BMP along LFTs bilirubin and lipase was unremarkable. Troponin was negative. UA did have nitrite leuks and whites. External records were reviewed which showed E. coli which was resistant. Ertapenem was ordered. Case was discussed with the hospitalist for further evaluation management treatment. Consults/Care Managements Discussions: Per MDM Triage Nursing notes reviewed. Limited review of prior medical records performed Vital Signs: reviewed and remarkable for no significant abnormalities Differential diagnosis: Differential diagnoses includes but is not limited to gastritis, peptic ulcer disease, GERD, gallbladder disease, pancreatitis, small bowel obstruction, appendicitis, diverticulitis, hernia, urinary tract infection, torsion, perforation, trauma, infectious. ER treatment provided: See below Diagnostics interpreted by me include EKG and cardiac monitoring as listed below: -Cardiac Monitoring: An order was placed for continuous cardiac monitoring. The monitor shows a rate of 90 with sinus rhythm. -ECG: none -Laboratory studies:Interpreted by me as stated above in MDM and shown below. Imaging studies: Xrays: As interpreted by me:none CTs show: none Procedures:none Critical Care: None Past Med/Surg History Problem List (Updated 08/21/24 @ 17:21 by David Baumann DO) Elevated blood sugar (Acute) Weakness (Acute) Complicated urinary tract infection (Acute) COPD (chronic obstructive pulmonary disease) Acute pyelonephritis Urinary tract infection due to extended-spectrum beta lactamase (ESBL) producing Escherichia coli Thrombocytopenia (Acute) Acute UTI (Acute) Abrasion of great toe, right, infected Recurrent UTI Abnormal blood cell count Ureter, calculus (Acute) Hydronephrosis (Acute) Complicated urinary tract infection (Acute) Encounter for pre-operative examination Ureteral stone with hydronephrosis Hydronephrosis Acute respiratory failure with hypoxia ENDY (obstructive sleep apnea) Mucus plug in respiratory tract Peripheral eosinophilia Hypersomnia Chronic bronchitis Abnormal chest CT COPD with emphysema Collapse of left lung Diabetes Hypoxia (Acute) Cough Current smoker Obstructive sleep apnea of adult COPD (chronic obstructive pulmonary disease) (Chronic) GERD (gastroesophageal reflux disease) (Chronic) H/O Clostridium difficile infection (Chronic) H/O colonoscopy (Chronic) "11/2013- hyperplastic polyp, diverticulosis" E. coli septicemia Herpes labialis Renal abscess Medical History Diabetes DVT prophylaxis Chest pain Obstructive sleep apnea of adult Acute pyelonephritis Sepsis Renal abscess Leukocytosis Herpes labialis Gram negative septicemia Fever E. coli septicemia H/O Clostridium difficile infection GERD (gastroesophageal reflux disease) COPD (chronic obstructive pulmonary disease) Surgical History H/O colonoscopy "11/2013- hyperplastic polyp, diverticulosis" S/P "1982" S/P cholecystectomy Family History Other Cancer Diabetes Gallbladder disease Hypertension Lung disease Social History (Updated 10/23/23 @ 10:30 by Misty Zuniga LPN) Smoking Status: Current every day smoker Tobacco Type: Cigarettes Age Started Using Tobacco: 27; Second Hand Exposure: No; Do You Dip or Chew Tobacco: No; Hx Alcohol Use: No Hx Substance Use: No Preferred Language: Citizen Of [place] Communication Ability: Effective Circuit Tester Required: No Beliefs That Will Affect Care: None marital status: Current Living Situation: Alone current occupational status: employed Feels Safe at Home: Yes Assistive Devices: None Allergies Allergies Allergy/AdvReac Type Severity Reaction Status Date / Time Penicillins Allergy Severe RESP. Verified 08/21/24 15:28 ISSUES Sulfa (Sulfonamide Allergy Severe RESP. Verified 08/21/24 15:28 Antibiotics) ISSUES sulfamethoxazole Allergy Severe RESP. Verified 08/21/24 15:28 [From Bactrim] ISSUES trimethoprim [From Bactrim] Allergy Severe RESP. Verified 08/21/24 15:28 ISSUES ceftriaxone Allergy Intermediate Itching Verified 08/21/24 15:28 Home Meds Home Medications Medication Instructions Recorded Confirmed magnesium oxide 500 mg PO DAILY PRN LEG CRAMPS 03/28/21 08/21/24 aspirin 81 mg tablet,delayed 81 mg PO DAILY 03/29/23 08/21/24 release omega 1-ppb-oqr-fish oil 1,000 mg 1 cap PO DAILY 07/04/23 08/21/24 (120 mg-180 mg) capsule (Fish Oil) cholecalciferol (vitamin D3) 50 50 mcg PO DAILY 08/18/24 08/21/24 mcg (2,000 unit) capsule (Vitamin D3) losartan 50 mg tablet 75 mg PO DAILY 08/18/24 08/21/24 montelukast 10 mg tablet 10 mg PO QPM PRN Congestion 08/18/24 08/21/24 (Singulair) Previous Rx's Medication Instructions Recorded Portable Oxygen #1 ea 11/14/22 nebulizers #1 ea 02/02/23 Auto Titrating CPAP #1 ea 10/25/23 CPAP Supplies #1 ea 10/25/23 benralizumab 30 mg/mL subcutaneous 30 mg subcut Q8WK #3 syringes 10/25/23 auto-injector (Fasenra Pen) Discontinue DME #1 ea 01/04/24 albuterol sulfate 0.63 mg/3 mL 0.63 mg (3 mL) inhalation Q4H PRN 05/26/24 solution for nebulization Shortness Of Breath Or Wheezing #1,620 mL albuterol sulfate 90 mcg/actuation 2 puff inhalation QID PRN 05/26/24 aerosol inhaler Shortness Of Breath Or Wheezing #3 Inhalers ipratropium bromide 0.02 % 2.5 ml inhalation Q4H PRN 05/26/24 solution for inhalation shortness of breath or wheezing #1,350 mL Results & Data (ED) Vital Signs Vital Signs - 24 hr 08/21/24 13:51 08/21/24 14:12 08/21/24 15:00 Temperature 36.6 C Temperature Source Temporal Artery Scan Pulse Rate 108 H 93 H 77 Pulse Rhythm Regular Pulse Strength Normal Respiratory Rate 20 20 Respiratory Effort / Characteristics Non-Labored Spontaneous Respiratory Depth Normal Blood Pressure 143/63 H 137/78 Blood Pressure Mean 89 94 Pulse Oximetry 93 91 Oxygen Delivery Method Room Air Oxygen Flow Rate Sepsis Recent Fever Within 48 Hours No Sepsis New/Unexplained Change in Mental Status N/A Sepsis Action Taken by Nursing No Action Required Oxygen Flow Rate - Titration Pulse Oximetry Post Tiitration 08/21/24 15:26 Temperature Temperature Source Pulse Rate Pulse Rhythm Pulse Strength Respiratory Rate Respiratory Effort / Characteristics Respiratory Depth Blood Pressure Blood Pressure Mean Pulse Oximetry 88 L Oxygen Delivery Method Room Air Nasal Cannula Oxygen Flow Rate 0 Sepsis Recent Fever Within 48 Hours Sepsis New/Unexplained Change in Mental Status Sepsis Action Taken by Nursing Oxygen Flow Rate - Titration 2 Pulse Oximetry Post Tiitration 95 Laboratory Data 08/21/24 14:17 08/21/24 14:17 Lab Results 08/21/24 Range/Units 14:17 WBC 8.26 (4.8-10.8) K/ul RBC 4.98 (4.20-5.40) M/uL Hgb 14.7 (12.0-16.0) g/dl Hct 44.0 (37.0-47.0) % MCV 88.4 (80.0-100.0) fL MCH 29.5 (25.0-34.0) pg MCHC 33.4 (32.0-36.0) g/dL RDW Std Deviation 41.9 (36.4-46.3) fL RDW Coeff of [place] 13.1 (11.5-14.5) % Plt Count 167 (130-400) K/uL MPV 11.2 (9.4-12.4) fL Immature Gran % (Auto) 0.5 % Neut % (Auto) 66.1 % Lymph % (Auto) 24.9 % [place] % (Auto) 7.3 % Eos % (Auto) 0.1 % Baso % (Auto) 1.1 % Neut # (Auto) 5.46 (1.40-6.50) K/uL Lymph # (Auto) 2.06 (1.20-3.40) K/uL [place] # (Auto) 0.60 H (0.11-0.59) K/uL Eos # (Auto) 0.01 (0.00-0.50) K/uL Baso # (Auto) 0.09 (0.00-0.20) K/uL Immature Gran # (Auto) 0.04 (0.01-0.20) K/uL Sodium 138 (136-145) mmol/L Potassium 3.9 (3.5-5.1) mmol/L Chloride 105 (98-107) mmol/L Carbon Dioxide 27 (21-32) mmol/L Anion Gap 6 (3-11) BUN 13 (6-23) mg/dl Creatinine 1.09 (0.6-1.2) mg/dl Est Cr Clr Drug Dosing 60.5 ml/min eGFR 55.34 BUN/Creatinine Ratio 11.9 (10-20) Glucose 156 H (70-99(Fasting)) mg/dl Calcium 9.5 (8.6-10.3) mg/dl Total Bilirubin 0.4 (0.2-1.0) mg/dl AST 14 (13-39) U/L ALT 10 (7-52) U/L Alkaline Phosphatase 61 (34-104) U/L Troponin I High Sens 3.4 (0-14) pg/ml Total Protein 7.6 (6.0-8.3) gm/dl Albumin 4.0 (3.4-5.0) gm/dl Globulin 3.6 (2.5-4.0) gm/dl Albumin/Globulin Ratio 1.1 (0.9-2) Lipase 40 (11-82) U/L Urine Color Yellow Urine Appearance Clear (Clear) Urine pH 5.0 (4.5-7.5) Ur Specific [place] 1.018 (1.000-1.030) Urine Protein 1+ H (Negative) Urine Glucose (UA) Negative (Negative) Urine Ketones Trace H (Negative) Urine Blood Trace H (Negative) Urine Nitrite Positive A (Negative) Urine Bilirubin Negative (Negative) Urine Urobilinogen Negative (Negative) Ur Leukocyte Esterase 1+ H (Negative) Urine WBC (Auto) 11-20 H (0-5) /hpf Urine RBC (Auto) 0-2 (0-2) /hpf U Hyaline Cast (Auto) 0-2 (0-2) /lpf U Epithel Cells (Auto) 3-5 H (0-2) /hpf Urine Bacteria (Auto) 4+ H (None Seen) Urine Comment Administered Medications Discontinued Medications Ertapenem (Invanz 1000mg) 1,000 mg in 10 mls @ 2 mls/min IV NOW STA Stop: 08/21/24 14:34 Last Admin: 08/21/24 14:39 Dose: 2 mls/min Documented By: CEF Imaging Data Radiologist's Impression: Chest X-Ray 08/21/24 15:58 EXAM: Portable AP chest radiograph TECHNIQUE: AP portable radiograph of the chest was obtained. INDICATION: Shortness of breath Comparison: Chest radiograph August 18, 2024 FINDINGS: LINES and TUBES: None CARDIOVASCULAR: Cardiac silhouette is stably and mildly enlarged in size. LUNGS/PLEURA: No focal consolidation identified. Mild pulmonary vascular congestion is also similar to previous. Small pleural fluids may be present. No discernible pneumothorax. OSSEOUS/OTHER: No displaced acute osseous process identified. IMPRESSION: Similar mild congestive changes of the cardiovascular system compared to the previous radiograph Electronically signed by Clemente Hennessy 08-21-2024 4:35 PM Discharge Plan Visit Data Chief Complaint: Referred by Doctor Stated Complaint: DOC CALLED HER BACK TO ER ED Provider: David Baumann Discharge Problem: Complicated urinary tract infection, Weakness, Elevated blood sugar Condition: Fair Forms Stand Alone Forms: My [email or web address] Prescriptions Prescriptions: No Action (DME) Portable Oxygen Misc See Rx Instructions .MEDSUPPLY Qty: 1 0RF Rx Instructions: Oxygen 2 liters continuous via nasal cannula on exertion with portable concentrator. TJ 99 (DME) nebulizers Misc See Rx Instructions miscellaneous .MEDSUPPLY Qty: 1 5RF Rx Instructions: Nebulizer and neb kits. Her current nebulizer is broken beyond repair. She is to use it 4 times a day or as directed. Lifetime need. (DME) Auto Titrating CPAP Misc See Rx Instructions .MEDSUPPLY Qty: 1 0RF Rx Instructions: Auto PAP with 6-12 cm H20. Lifetime usage. G47.33 (DME) CPAP Supplies Misc See Rx Instructions .MEDSUPPLY Qty: 1 0RF Rx Instructions: CPAP supplies, mask, headgear, filters, tubing, water chamber. G47.33 Fasenra Pen 30 mg/mL auto-injector 30 mg subcut Q8WK Qty: 3 2RF Rx Instructions: LAST INJ 07/31/24 aspirin 81 mg tablet,delayed release (DR/EC) 81 mg PO DAILY albuterol sulfate 90 mcg/actuation HFA aerosol inhaler 2 puff INHALATION QID PRN (Reason: Shortness Of Breath Or Wheezing) Qty: 3 2RF albuterol sulfate 0.63 mg/3 mL solution for nebulization 0.63 mg INHALATION Q4H PRN (Reason: Shortness Of Breath Or Wheezing) Qty: 1620 2RF Rx Instructions: MIX WITH IPRATROPIUM FOR NEB. ipratropium bromide 0.02 % solution 2.5 ml INHALATION Q4H PRN (Reason: shortness of breath or wheezing) Qty: 1350 5RF Rx Instructions: MIX WITH ALBUTEROL FOR NEB. (DME) Discontinue DME Misc See Rx Instructions .MEDSUPPLY Qty: 1 0RF Rx Instructions: Discontinue oxygen magnesium oxide 500 mg Tablet 500 mg PO DAILY PRN (Reason: LEG CRAMPS) omega 7-fqc-uqq-fish oil [Fish Oil] 1,000 mg (120 mg-180 mg) Capsule 1 cap PO DAILY cholecalciferol (vitamin D3) [Vitamin D3] 50 mcg (2,000 unit) Capsule 50 mcg PO DAILY losartan 50 mg tablet 75 mg PO DAILY montelukast [Singulair] 10 mg tablet 10 mg PO QPM PRN (Reason: Congestion) Referrals Referrals: Fernando Bravo PA-C [Primary Care Provider] -
[2024-08-21] MEDS: ERTAPENEM 1000MG 1,000 MG/10 ML SYR IV STA (14:39)
[2024-08-21 14:47] LABS: Albumin Globulin Ratio 1.1 (0.9-2); BUN Creatinine Ratio 11.9 (10-20); Bilirubin,Total 0.4 mg/dl (0.2-1.0); Calcium 9.5 mg/dl (8.6-10.3); Creatinine Clr Calc Pharmacy 60.5 ml/min; Globulin 3.6 gm/dl (2.5-4.0); Potassium 3.9 mmol/L (3.5-5.1); Total Protein 7.6 gm/dl (6.0-8.3)
--- NOTE | 2024-08-21 15:55 | History & Physical Report ---
Date of Service August 21, 2024 Assessment & Plan (1) Urinary tract infection due to extended-spectrum beta lactamase (ESBL) p roducing Escherichia coli: (2) Acute pyelonephritis: (3) Hypoxia: (4) COPD (chronic obstructive pulmonary disease): Plan Patient is a 69-year-old female with past medical history of ESBL E. coli, ENDY, COPD, GERD. Patient presented to the ED 08/18 due to lower extremity pain and bilateral flank pain. She was worked up for DVT, D-dimer negative at this time. UA appeared positive for infection so patient was discharged with oral ciprofloxacin. Cultures returned 08/20 showing ESBL E. coli, fosfomycin was sent to patient's pharmacy however insurance denied and was too expensive for the patient. Patient was recommended to come into the ED 08/21 for further treatment of ESBL E. coli including IV antibiotics. #ESBL UTI/bilateral pyelonephritis patient with bilateral flank pain (R>L), stated it does not feel like her previous kidney stones. UTI treated with 4 doses of ciprofloxacin in outpatient setting when cultures returned as ESBL and recommended to come in for inpatient IV antibiotic management given she is allergic to penicillins. UA appears infectious at time of admission; + nitrite, 1+ LE, 11-20 WBC, 4+ bacteria. Non septic at time of admission - Leukocytosis and thrombocytopenia resolved. Renal function stable. Repeat urine culture sent Continue ertapenem 1G IV daily If bilateral flank pain persist after ABX treatment, consider abdominal imaging to rule out nephrolithiasis - Tylenol as needed for flank pain - LR at 80 mL/hour x 1L and promote oral hydration Trend CBC and BMP - will defer blood cultures as patient has already had outpatient ABX and IV ABX in ED, does not appear septic #hypoxia patient noted to be 88% on room air in ED. History of COPD and ENDY. Patient denies any chest pain, dyspnea, recent flulike symptoms. D-Dimer 08/18 negative. CXR negative for any acute changes. wean oxygen as tolerated for goal 88-92% with COPD Incentive spirometry #COPD/tobacco use history of COPD smoking 18 cigarettes/day. Likely contributing to hypoxia above. Patient declines nicotine patch at time of admission Encourage smoking cessation Continue home inhalers #ENDY patient may use home CPAP #HTN continue home losartan VTE ppx: SCDs, low risk and able to ambulate Dispo: med/surg Admission and Anticipated Discharge Date Admission Date: 08/21/24 History of Present Illness Chief Complaint: referred by Primary Care Provider: Fernando Bravo PA-C Patient is a 69-year-old female with past medical history of ESBL E. coli, ENDY, COPD, GERD. Patient presented to the ED 08/18 due to lower extremity pain and bilateral flank pain. She was worked up for DVT, D-dimer negative at this time. UA appeared positive for infection so patient was discharged with oral ciproflo xacin. Cultures returned 08/20 showing ESBL E. coli, fosfomycin was sent to patient's pharmacy however insurance denied and was too expensive for the patient. Patient was recommended to come into the ED 08/21 for further treatment of ESBL E. coli including IV antibiotics. Patient seen at bedside. She stated she has had bilateral intermittent flank pain. She does have a history of 3 kidney stones however stated this feels different, she had much more significant pain whenever she had previous stones. Pain has been in bilateral flanks, and moved. She stated her urine is cloudy however denies any dysuria, hematuria. denies any dizziness, lightheadedness, fevers, chills, chest pain, shortness of breath, nausea, vomiting. She stated she got 4 doses total of ciprofloxacin (2 doses on the and 2 doses on the ). She was more concerned about her bilateral lower extremity pain however thinks it is due to her sciatica as it is worse in the morning after she sleeps on her back and radiates from her buttocks down her legs. She also endorses recent indigestion. She continues to smoke approximately 18 cigarettes/day, declines need for nicotine patch at this time. Denies alcohol use. Does use CPAP at home, brought her home machine. Took her home medications this morning, is due for losartan in the evening. She wishes to be DNR/DNI. Allergies Allergy/AdvReac Type Severity Reaction Status Date / Time Penicillins Allergy Severe RESP. Verified 08/21/24 15:28 ISSUES Sulfa (Sulfonamide Allergy Severe RESP. Verified 08/21/24 15:28 Antibiotics) ISSUES sulfamethoxazole Allergy Severe RESP. Verified 08/21/24 15:28 [From Bactrim] ISSUES trimethoprim [From Bactrim] Allergy Severe RESP. Verified 08/21/24 15:28 ISSUES ceftriaxone Allergy Intermediate Itching Verified 08/21/24 15:28 Home Medications Medication Instructions Recorded Confirmed Type magnesium oxide 500 mg PO DAILY PRN LEG CRAMPS 03/28/21 08/21/24 History Portable Oxygen #1 ea 11/14/22 08/21/24 Rx nebulizers #1 ea 02/02/23 08/21/24 Rx aspirin 81 mg tablet,delayed 81 mg PO DAILY 03/29/23 08/21/24 History release omega 3-fvj-jpc-fish oil 1,000 mg 1 cap PO DAILY 07/04/23 08/21/24 History (120 mg-180 mg) capsule (Fish Oil) Auto Titrating CPAP #1 ea 10/25/23 08/21/24 Rx CPAP Supplies #1 ea 10/25/23 08/21/24 Rx benralizumab 30 mg/mL subcutaneous 30 mg subcut Q8WK #3 syringes 10/25/23 08/21/24 Rx auto-injector (Fasenra Pen) Discontinue DME #1 ea 01/04/24 08/21/24 Rx albuterol sulfate 0.63 mg/3 mL 0.63 mg (3 mL) inhalation Q4H PRN 05/26/24 08/21/24 Rx solution for nebulization Shortness Of Breath Or Wheezing #1,620 mL albuterol sulfate 90 mcg/actuation 2 puff inhalation QID PRN 05/26/24 08/21/24 Rx aerosol inhaler Shortness Of Breath Or Wheezing #3 Inhalers ipratropium bromide 0.02 % 2.5 ml inhalation Q4H PRN 05/26/24 08/21/24 Rx solution for inhalation shortness of breath or wheezing #1,350 mL cholecalciferol (vitamin D3) 50 50 mcg PO DAILY 08/18/24 08/21/24 History mcg (2,000 unit) capsule (Vitamin D3) losartan 50 mg tablet 75 mg PO DAILY 08/18/24 08/21/24 History montelukast 10 mg tablet 10 mg PO QPM PRN Congestion 08/18/24 08/21/24 History (Singulair) fluticasone 500 mcg-salmeterol 50 1 inh inhalation BID 08/22/24 08/22/24 History mcg/dose blistr powdr for inhalation umeclidinium 62.5 mcg/actuation 1 inh inhalation QAM 08/22/24 08/22/24 History blister powder for inhalation (Incruse Ellipta) Past Med/Surg History Problem List (Updated 08/21/24 @ 17:21 by David Baumann DO) Elevated blood sugar (Acute) Weakness (Acute) Complicated urinary tract infection (Acute) COPD (chronic obstructive pulmonary disease) Acute pyelonephritis Urinary tract infection due to extended-spectrum beta lactamase (ESBL) producing Escherichia coli Thrombocytopenia (Acute) Acute UTI (Acute) Abrasion of great toe, right, infected Recurrent UTI Abnormal blood cell count Ureter, calculus (Acute) Hydronephrosis (Acute) Complicated urinary tract infection (Acute) Encounter for pre-operative examination Ureteral stone with hydronephrosis Hydronephrosis Acute respiratory failure with hypoxia ENDY (obstructive sleep apnea) Mucus plug in respiratory tract Peripheral eosinophilia Hypersomnia Chronic bronchitis Abnormal chest CT COPD with emphysema Collapse of left lung Diabetes Hypoxia (Acute) Cough Current smoker Obstructive sleep apnea of adult COPD (chronic obstructive pulmonary disease) (Chronic) GERD (gastroesophageal reflux disease) (Chronic) H/O Clostridium difficile infection (Chronic) H/O colonoscopy (Chronic) "11/2013- hyperplastic polyp, diverticulosis" E. coli septicemia Herpes labialis Renal abscess Medical History Diabetes DVT prophylaxis Chest pain Obstructive sleep apnea of adult Acute pyelonephritis Sepsis Renal abscess Leukocytosis Herpes labialis Gram negative septicemia Fever E. coli septicemia H/O Clostridium difficile infection GERD (gastroesophageal reflux disease) COPD (chronic obstructive pulmonary disease) Surgical History H/O colonoscopy "11/2013- hyperplastic polyp, diverticulosis" S/P "1982" S/P cholecystectomy Family History Other Cancer Diabetes Gallbladder disease Hypertension Lung disease Social History (Updated 10/23/23 @ 10:30 by Misty Zuniga LPN) Smoking Status: Current some day smoker Tobacco Type: Cigarettes Age Started Using Tobacco: 27; Cigarettes Per Day: 18-20; Second Hand Exposure: No; Do You Dip or Chew Tobacco: No; Hx Alcohol Use: No Hx Substance Use: No Preferred Language: Armenian Communication Ability: Effective Fertilizer Processing Supervisor Required: No Beliefs That Will Affect Care: None marital status: Current Living Situation: Alone current occupational status: employed Feels Safe at Home: Yes Assistive Devices: Nebulizer Review of Systems Review of Systems: see HPI Physical Exam Physical Exam: The patient is awake, alert and oriented 3, well developed and well nourished, normocephalic and atraumatic, in no acute distress. Non-toxic appearing. HEENT- EOMI, mucous membranes moist. Hearing grossly intact. Heart-normal S1 and S2. No murmurs, rubs or gallops. Lungs-clear bilaterally, no respiratory distress, no accessory muscle use. Abdomen-normal bowel sounds and soft. No ascites noted. Non-tender. No CVA tenderness. Extremities- no clubbing, cyanosis, or edema. Rheumatologic-normal range of motion. Psychiatric-normal affect. Results & Data Results & Data Vital Signs (Past 12 Hours) Vital Signs Temp Pulse Resp BP Pulse Ox O2 Del Method O2 Flow Rate 08/21/24 15:26 88 L Room Air, Nasal Cannula 0 08/21/24 15:00 77 20 137/78 91 08/21/24 14:12 93 H 08/21/24 13:51 36.6 C 108 H 20 143/63 H 93 Room Air Laboratory Results Reviewed CBC, CMP, troponin, lipase, UA Diagnostic Findings CXR ordered by ED Medications Administered ED: ertapenem 1g IV ECG Additional Comments: ordered Code Status & VTE Plan Code Status dnr/dni VTE Prophylaxis Plan VTE Prophylaxis will be ordered: Yes Supervising Physician Co-Signing Physician Notes I personally saw and examined the patient. I independently reviewed the labs, EKG, imaging, problem list, medication list, past medical history and family history. I verified all thakur points and agree with Destini Trujillo PA-C with the following exceptions and/or additions: 69 year old female presents to the ER after being called back due to ESBL E. coli urine culture and ongoing cloudy urine and bilateral flank pain O/E HS RRR, no murmurs, Chest CTAB, Abdo SNT, no CVA tenderness A/P Possible pyelonephritis / ESBL E. coli UTI - IV ertapenem, can be set up with the [facility] on discharge COPD - discussed she should be using her maintenance inhalers regularly and duonebs as needed rather than the other way round. 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 PG Care Time/CCT Total # of Minutes Spent Total Time Spent with Patient: Total time spent is greater than 50% in coordination of care (as documented) at patient's floor/unit and/or counseling patient: Coding Level of Care Code 11161 INT INP/OBS CARE 3/75MIN Diagnoses Urinary tract infection due to extended-spectrum beta lactamase (ESBL) producing Escherichia coli N39.0; B96.29; Z16.12 Acute pyelonephritis N10 Hypoxia R09.02 COPD (chronic obstructive pulmonary disease) J44.9
[2024-08-21 16:35] LABS: Troponin I High Sensitivity 3.4 pg/ml (0-14)
--- NOTE | 2024-08-21 16:35 | XRay Report ---
EXAM: Portable AP chest radiograph TECHNIQUE: AP portable radiograph of the chest was obtained. INDICATION: Shortness of breath Comparison: Chest radiograph August 18, 2024 FINDINGS: LINES and TUBES: None CARDIOVASCULAR: Cardiac silhouette is stably and mildly enlarged in size. LUNGS/PLEURA: No focal consolidation identified. Mild pulmonary vascular congestion is also similar to previous. Small pleural fluids may be present. No discernible pneumothorax. OSSEOUS/OTHER: No displaced acute osseous process identified. IMPRESSION: Similar mild congestive changes of the cardiovascular system compared to the previous radiograph Electronically signed by Clemente Hennessy 08-21-2024 4:35 PM
[2024-08-21] MEDS: LACTATED RINGER'S 1,000 ML IV SCH (17:27)
[2024-08-21] MEDS ORDERED: ACETAMINOPHEN 325 MG TAB PO PRN (18:35)
[2024-08-21] MEDS ORDERED: MELATONIN 3 MG TAB PO PRN (18:35)
[2024-08-21] MEDS ORDERED: DOCUSATE SODIUM 100 MG CAP PO PRN (18:35)
[2024-08-21] MEDS ORDERED: IPRATROPIUM BROMIDE NEB SOLN 0.02% 0.5MG/2.5ML VIAL INH PRN (18:35)
[2024-08-21] MEDS ORDERED: MONTELUKAST SODIUM 10 MG TABLET PO PRN (18:35)
[2024-08-21] MEDS ORDERED: ONDANSETRON INJ 2 MG/ML 2 ML VIAL IV PRN (18:35)
[2024-08-21] MEDS ORDERED: ALBUTEROL 0.5% NEB SOLN 2.5 MG/0.5 ML VIAL INH PRN (18:48)
[2024-08-21] MEDS: ALBUTEROL HFA 8 GM INHALER INH PRN (19:07)
[2024-08-21] MEDS: FAMOTIDINE 20 MG TAB PO SCH (21:01)
[2024-08-21] MEDS: LOSARTAN POTASSIUM 25 MG TAB PO SCH (21:01)
[2024-08-21] MEDS: FLUTICASONE/VILANTEROL 200/25MCG 14 PUFFS/INHALER INH SCH (21:10)
[2024-08-22 07:19] VITALS: RESP 16
[2024-08-22 08:28] LABS: Basophils % (auto) 1.1 %; Hematocrit (blood only) 42.4 % (37.0-47.0); Hemoglobin 14.6 g/dl (12.0-16.0); Immature Granulocytes # (auto) 0.04 K/uL (0.01-0.20); Immature Granulocytes % (auto) 0.5 %; Lymphocytes # (auto) 2.71 K/uL (1.20-3.40); Lymphocytes % (auto) 30.9 %; Mean Corpuscular Hemoglobin 30.2 pg (25.0-34.0); Mean Corpuscular Hgb Conc 34.4 g/dL (32.0-36.0); Mean Corpuscular Volume 87.6 fL (80.0-100.0); Mean Platelet Volume 11.3 fL (9.4-12.4); Monocytes # (auto) 0.66 K/uL (0.11-0.59); Monocytes % (auto) 7.5 %; Neutrophils # (auto) 5.25 K/uL (1.40-6.50); Platelet Count 159 K/uL (130-400); RDW Coefficient of Variation 12.7 % (11.5-14.5); RDW Standard Deviation 40.5 fL (36.4-46.3); Red Blood Count 4.84 M/uL (4.20-5.40); White Blood Count 8.76 K/ul (4.8-10.8)
[2024-08-22 08:43] LABS: BUN Creatinine Ratio 12.5 (10-20); Calcium 9.1 mg/dl (8.6-10.3); Creatinine Clr Calc Pharmacy 63.5 ml/min; Potassium 4.1 mmol/L (3.5-5.1)
[2024-08-22] MEDS: ASPIRIN 81 MG ECTAB PO SCH (09:11)
[2024-08-22] MEDS: ALBUT/IPRATROP 3MG/0.5MG NEB 3 ML VIAL NEB STA (12:10)
--- NOTE | 2024-08-22 12:13 | Electrocardiogram Report ---
Test Reason : Blood Pressure : */* mmHG Vent. Rate : 78 BPM Atrial Rate : 78 BPM P-R Int : 178 ms QRS Dur : 102 ms QT Int : 414 ms P-R-T Axes : 65 11 63 degrees QTcB Int : 471 ms Normal sinus rhythm Low voltage QRS Borderline ECG When compared with ECG of 18-Aug-2024 01:57, Premature ventricular complexes are no longer Present Confirmed by Henrry Miramontes ([id number]) on 08/22/2024 12:13:03 PM Referred By: REFERRED SELF Confirmed By: Henrry Miramontes
[2024-08-22 14:06] VITALS: BP 138/85; PULSE 84; TEMP 97.7; O2SAT 94
--- NOTE | 2024-08-22 14:11 | Discharge Summary ---
Date of Service August 22, 2024 Admission HPI Per Admitting Provider Patient is a 69-year-old female with past medical history of ESBL E. coli, ENDY, COPD, GERD. Patient presented to the ED 08/18 due to lower extremity pain and bilateral flank pain. She was worked up for DVT, D-dimer negative at this time. UA appeared positive for infection so patient was discharged with oral ciprofloxacin. Cultures returned 08/20 showing ESBL E. coli, fosfomycin was sent to patient's pharmacy however insurance denied and was too expensive for the patient. Patient was recommended to come into the ED 08/21 for further treatment of ESBL E. coli including IV antibiotics. Patient seen at bedside. She stated she has had bilateral intermittent flank pain. She does have a history of 3 kidney stones however stated this feels different, she had much more significant pain whenever she had previous stones. Pain has been in bilateral flanks, and moved. She stated her urine is cloudy however denies any dysuria, hematuria. denies any dizziness, lightheadedness, fevers, chills, chest pain, shortness of breath, nausea, vomiting. She stated she got 4 doses total of ciprofloxacin (2 doses on the and 2 doses on the ). She was more concerned about her bilateral lower extremity pain however thinks it is due to her sciatica as it is worse in the morning after she sleeps on her back and radiates from her buttocks down her legs. She also endorses recent indigestion. She continues to smoke approximately 18 cigarettes/day, declines need for nicotine patch at this time. Denies alcohol use. Does use CPAP at home, brought her home machine. Took her home medications this morning, is due for losartan in the evening. She wishes to be DNR/DNI. Specialty Data Hospitalist Discharge diagnosis: ESBL E. coli UTI Discharge assessment: Vital Signs Temp Pulse Pulse Resp BP BP Pulse Ox 08/22/24 14:05 36.5 C 84 16 138/85 94 08/22/24 12:11 94 H 16 91 08/22/24 07:19 36.7 C 72 16 123/75 91 08/21/24 20:03 08/21/24 20:00 36.8 C 80 18 112/70 93 08/21/24 19:07 88 18 92 08/21/24 18:35 36.5 C 86 18 140/76 93 06/26/25 17:03 78 18 131/76 95 08/21/24 15:33 75 20 122/84 94 08/21/24 15:26 88 L 08/21/24 15:00 77 20 137/78 91RA 08/21/24 14:12 93 H GENERAL: 69 yo well-nourished. A&O x3. No distress. LUNGS: Nonlabored with few scattered expiratory wheezes noted. No rhonchi or rales. CARDIOVASCULAR: Regular rate and rhythm. ABDOMEN: Soft, non-tender and non-distended. BS normoactive x 4 quad. EXTREMITIES: No edema. Non-tender. Peripheral pulses +2/4. SKIN: Warm, dry, intact. No rashes or lesions. Discharge Data Consultations 08/21/24 14:39 ED Decision to Admit Stat Procedures Performed 08/22/24 07:54 08/22/24 07:54 Chest X-Ray 08/21/24 15:58 EXAM: Portable AP chest radiograph TECHNIQUE: AP portable radiograph of the chest was obtained. INDICATION: Shortness of breath Comparison: Chest radiograph August 18, 2024 FINDINGS: LINES and TUBES: None CARDIOVASCULAR: Cardiac silhouette is stably and mildly enlarged in size. LUNGS/PLEURA: No focal consolidation identified. Mild pulmonary vascular congestion is also similar to previous. Small pleural fluids may be present. No discernible pneumothorax. OSSEOUS/OTHER: No displaced acute osseous process identified. IMPRESSION: Similar mild congestive changes of the cardiovascular system compared to the previous radiograph Electronically signed by Clemente Hennessy 08-21-2024 4:35 PM Hospital Course (1) Urinary tract infection due to extended-spectrum beta lactamase (ESBL) producing Escherichia coli: (2) Acute pyelonephritis: (3) Hypoxia: (4) COPD (chronic obstructive pulmonary disease): Plan Patient is a 69-year-old female with past medical history of ESBL E. coli, ENDY, COPD, GERD. Patient presented to the ED 08/18 due to lower extremity pain and bilateral flank pain. She was worked up for DVT, D-dimer negative at this time. UA appeared positive for infection so patient was discharged with oral ciprofloxacin. Cultures returned 08/20 showing ESBL E. coli, fosfomycin was sent to patient's pharmacy however insurance denied and was too expensive for the patient. Patient was recommended to come into the ED 08/21 for further treatment of ESBL E. coli including IV antibiotics. #ESBL UTI/bilateral pyelonephritis patient with bilateral flank pain (R>L), stated it does not feel like her previous kidney stones. UTI treated with 4 doses of ciprofloxacin in outpatient setting when cultures returned as ESBL and recommended to come in for inpatient IV antibiotic management given she is allergic to penicillins. UA appears infectious at time of admission; + nitrite, 1+ LE, 11-20 WBC, 4+ bacteria. Non septic at time of admission - Leukocytosis and thrombocytopenia resolved. Renal function stable. Repeat urine culture sent Continue ertapenem 1G IV daily (received 2 doses in hospital) If bilateral flank pain persist after ABX treatment, consider abdominal imaging to rule out nephrolithiasis - Tylenol as needed for flank pain - LR at 80 mL/hour x 1L and promote oral hydration - blood cultures deferred as patient has already had outpatient ABX and IV ABX in ED, does not appear septic #hypoxia patient noted to be 88% on room air in ED. History of COPD and ENDY. Patient denies any chest pain, dyspnea, recent flulike symptoms. D-Dimer 08/18 negative. CXR negative for any acute changes. wean oxygen as tolerated for goal 88-92% with COPD Incentive spirometry - Given Duoneb x1 and weaned off O2 with pulse ox 94% on room air #COPD/tobacco use history of COPD smoking 18 cigarettes/day. Likely contributing to hypoxia above. Patient declines nicotine patch at time of admission Encouraged smoking cessation Continue home inhalers #ENDY patient may use home CPAP #HTN continue home losartan US-guided peripheral line placed, she will complete her course of Invanz as an outpatient through [facility]. [facility] to call patient and provide her with a time for her infusion. Patient is medically and hemodynamically stable for discharge home with outpatient PCP follow up. Plan d/w Dr. Davenport. Total time for discharge: 35 minutes Coding Level of Care Code 26916 INP/OBS DISCH >30 MIN Diagnoses Urinary tract infection due to extended-spectrum beta lactamase (ESBL) producing Escherichia coli N39.0; B96.29; Z16.12 Acute pyelonephritis N10 Hypoxia R09.02 COPD (chronic obstructive pulmonary disease) J44.9
[2024-08-22] MEDS: ERTAPENEM 1000MG 1,000 MG/10 ML SYR IV SCH (14:46)
== END 2024-08-22 15:15 | disposition home or self-care (01) | DRG 690 ==
LOC: ED 13:44 → 3W 16:19 → SUATTDRO 16:19 → 3W 17:20

== ENCOUNTER 2024-10-20 12:50 | Inpatient (IN) ==
[2024-10-20 13:48] LABS: Appearance Urine Clear (Clear); Bacteria Urine Automated 4+ (None Seen); Cast Urine Automated 0-2 /lpf (0-2); Epithelial Cell Urine Auto 0-2 /hpf (0-2); Glucose Urine UA Negative (Negative); RBC Urine Automated 0-2 /hpf (0-2); WBC Urine Automated 0-5 /hpf (0-5)
[2024-10-20 13:49] LABS: Hematocrit (blood only) 42.5 % (37.0-47.0); Hemoglobin 14.8 g/dl (12.0-16.0); Immature Granulocytes # (auto) 0.06 K/uL (0.01-0.20); Immature Granulocytes % (auto) 0.5 %; Mean Corpuscular Hemoglobin 29.8 pg (25.0-34.0); Mean Corpuscular Volume 85.5 fL (80.0-100.0); Platelet Count 155 K/uL (130-400); RDW Standard Deviation 40.1 fL (36.4-46.3); Red Blood Count 4.97 M/uL (4.20-5.40); White Blood Count 13.16 K/ul (4.8-10.8)
--- NOTE | 2024-10-20 14:13 | Emergency Department Note ---
History of Present Illness General Chief complaint: Abdominal Pain Stated complaint: PAIN IN LOWER STOMACH Time Seen by Provider: 10/20/24 13:28 History of Present Illness Maximum Pain Intensity: 7 Patient is a 69-year-old female with past medical history significant for ESBL E. coli, ENDY, COPD, GERD, kidney stones, history of pyelonephritis, history of renal abscess, among other chronic medical problems who presents to the emergency department for evaluation of left flank pain. Symptoms started last night. She states it feels like "labor pains." It is a crampy pain in the left hip/left flank that radiates to the left lower quadrant and across to the right lower quadrant. Is been coming and going since last night. She felt a little bit nauseous this morning but did not vomit. She denies dysuria, frequency, urgency or hematuria. She denies that this does not feel like her urinary tract infections. She does have a history of kidney stones. She does have a history of complicated UTIs, she was hospitalized at the end of July, completed [facility] treatment. She notes that she was on several antibiotics from her primary care provider in the last couple of weeks, she thinks vancomycin, ciprofloxacin and doxycycline. She finished the antibiotics about a week ago. Patient currently rates her pain a 7/10. Denies fever or chills. She did not take any medication for discomfort. She has never had a colonoscopy, and is unsure if she has ever had diverticulitis. She notes that she is due for a DuoNeb treatment, she does 1 every 4 hours. The pain in the abdomen is worse when she coughs. Home Medications Medication Instructions Recorded Confirmed Type magnesium oxide 500 mg PO DAILY PRN LEG CRAMPS 03/28/21 10/20/24 History Portable Oxygen #1 ea 11/14/22 08/27/24 Rx nebulizers #1 ea 02/02/23 08/27/24 Rx aspirin 81 mg tablet,delayed 81 mg PO DAILY 03/29/23 10/20/24 History release omega 3-eso-wrc-fish oil 1,000 mg 1 cap PO DAILY 07/04/23 10/20/24 History (120 mg-180 mg) capsule (Fish Oil) Auto Titrating CPAP #1 ea 10/25/23 08/27/24 Rx CPAP Supplies #1 ea 10/25/23 08/27/24 Rx benralizumab 30 mg/mL subcutaneous 30 mg subcut Q8WK #3 syringes 10/25/23 10/20/24 Rx auto-injector (Fasenra Pen) Discontinue DME #1 ea 01/04/24 08/27/24 Rx albuterol sulfate 0.63 mg/3 mL 0.63 mg (3 mL) inhalation Q4H PRN 05/26/24 10/20/24 Rx solution for nebulization Shortness Of Breath Or Wheezing #1,620 mL albuterol sulfate 90 mcg/actuation 2 puff inhalation QID PRN 05/26/24 10/20/24 Rx aerosol inhaler Shortness Of Breath Or Wheezing #3 Inhalers ipratropium bromide 0.02 % 2.5 ml inhalation Q4H PRN 05/26/24 10/20/24 Rx solution for inhalation shortness of breath or wheezing #1,350 mL cholecalciferol (vitamin D3) 50 50 mcg PO DAILY 08/18/24 10/20/24 History mcg (2,000 unit) capsule (Vitamin D3) losartan 50 mg tablet 75 mg PO DAILY 08/18/24 10/20/24 History fluticasone 500 mcg-salmeterol 50 1 inh inhalation BID 08/22/24 10/20/24 History mcg/dose blistr powdr for inhalation Allergies Allergy/AdvReac Type Severity Reaction Status Date / Time Penicillins Allergy Severe RESP. Verified 10/20/24 16:26 ISSUES Sulfa (Sulfonamide Allergy Severe RESP. Verified 10/20/24 16:26 Antibiotics) ISSUES sulfamethoxazole Allergy Severe RESP. Verified 10/20/24 16:26 [From Bactrim] ISSUES trimethoprim [From Bactrim] Allergy Severe RESP. Verified 10/20/24 16:26 ISSUES ceftriaxone Allergy Intermediate Itching Verified 10/20/24 16:26 Past Med/Surg History Problem List (Updated 10/20/24 @ 19:30 by Georgie [place]) Diverticulitis of intestine with abscess (Acute) History of ESBL E. coli infection Diverticulitis of intestine with abscess Complicated urinary tract infection (Acute) COPD (chronic obstructive pulmonary disease) Urinary tract infection due to extended-spectrum beta lactamase (ESBL) producing Escherichia coli Abrasion of great toe, right, infected Recurrent UTI Complicated urinary tract infection (Acute) Ureteral stone with hydronephrosis Hydronephrosis Acute respiratory failure with hypoxia ENDY (obstructive sleep apnea) Mucus plug in respiratory tract Peripheral eosinophilia Hypersomnia Chronic bronchitis Abnormal chest CT COPD with emphysema Collapse of left lung Diabetes Cough Current smoker Obstructive sleep apnea of adult COPD (chronic obstructive pulmonary disease) (Chronic) GERD (gastroesophageal reflux disease) (Chronic) H/O Clostridium difficile infection (Chronic) H/O colonoscopy (Chronic) "11/2013- hyperplastic polyp, diverticulosis" E. coli septicemia Herpes labialis Renal abscess Medical History (Updated 10/20/24 @ 19:30 by Georgie [place]) Gram negative septicemia Family History Other Cancer Diabetes Gallbladder disease Hypertension Lung disease Social History Smoking Status: Never smoker Tobacco Type: Cigarettes Age Started Using Tobacco: 27; Cigarettes Per Day: 18-20; Second Hand Exposure: No; Do You Dip or Chew Tobacco: No; Hx Alcohol Use: No Hx Substance Use: No Preferred Language: Ugandan Communication Ability: Effective [employer] Required: No Beliefs That Will Affect Care: None marital status: Current Living Situation: Alone current occupational status: employed Feels Safe at Home: Yes Assistive Devices: Nebulizer Review of Systems A total of 10 systems reviewed and were otherwise negative Physical Exam Vital Signs Vital Signs - 24 hr 10/20/24 12:58 10/20/24 14:42 10/20/24 15:00 Temperature 36.5 C Temperature Source Temporal Artery Scan Pulse Rate 118 H 92 H Pulse Rate [Apical] 88 Respiratory Rate 20 16 Respiratory Effort / Characteristics Non-Labored Non-Labored Spontaneous Respiratory Depth Normal Normal Blood Pressure 128/77 Blood Pressure [Left Arm] 121/69 Blood Pressure Mean 94 Blood Pressure Mean [Left Arm] 86 Pulse Oximetry 93 91 Oxygen Delivery Method Room Air Room Air Sepsis Recent Fever Within 48 Hours No Sepsis New/Unexplained Change in Mental Status No Sepsis Action Taken by Nursing No Action Required 10/20/24 17:00 10/20/24 18:23 Temperature Temperature Source Pulse Rate 92 H Pulse Rate [Apical] 97 H Respiratory Rate 16 Respiratory Effort / Characteristics Non-Labored Spontaneous Respiratory Depth Normal Blood Pressure Blood Pressure [Left Arm] 121/82 Blood Pressure Mean Blood Pressure Mean [Left Arm] 95 Pulse Oximetry 97 Oxygen Delivery Method Room Air Sepsis Recent Fever Within 48 Hours Sepsis New/Unexplained Change in Mental Status Sepsis Action Taken by Nursing CONSTITUTIONAL: Patient is a nontoxic-appearing 69-year-old male who is awake and alert and in no acute distress laying on the gurney. EYES: Pupils equal, round, reactive to light and accommodation. EOMs intact without nystagmus. Sclera are anicteric. ENT: Tympanic membranes intact, with normal landmarks. External canals are clear. Oral and nasopharynx are clear. Mucous membranes are moist, no lesions, tongue and gums appear normal. CARDIOVASCULAR: Regular rate and rhythm. Peripheral pulses easy to palpable. RESPIRATORY: Breath sounds are diminished with scattered inspiratory and expiratory wheezes throughout. GI: Bowel sounds are present. Multiple well-healed surgical scars are noted. The abdomen is soft, obese, nontender to percussion throughout. There is tenderness to palpation in the left mid and left lower quadrant, without guarding or rebound. MUSCULOSKELETAL: Full range of motion of extremities x 4 with good strength. No cyanosis, edema, joint tenderness or swelling. No deformity. INTEGUMENTARY: No lesions or rash, normal skin turgor. Course Course The patient was seen and assessed as above. External medical records are reviewed. Critical pathways were implemented prior to my assessment of the patient including CBC with differential, CMP, lipase, urinalysis and a CT scan of the abdomen and pelvis with IV contrast. After I assessed the patient, she was ordered her scheduled DuoNeb. Diagnostics, as interpreted by me: Laboratory studies: Moderately elevated white count at 13,100 with left shift. No anemia. No significant electrolyte imbalance, no MIRNA, no transaminitis. Elevated, nonfasting glucose at 130. Lipase is normal. Urine notes trace blood, positive nitrates, trace leukocyte esterase and 4+ bacteria. Urine culture is pending. Imaging studies: CT scan of the abdomen and pelvis with IV contrast is concerning for acute sigmoid diverticulitis with probable intramural abscess measuring 4 cm. No obstruction, pneumoperitoneum or drainable fluid collection. Patient was ordered IV ciprofloxacin and metronidazole, given allergies. Antibiotics confirmed with ED pharmacist. Patient reviewed with the ED block and case maker for admission. Consultation was placed with the [facility] hospitalist service for further care and management, patient reviewed with Dr. Azevedo. Chronic conditions affecting care: COPD, complicated UTI, kidney stone, diverticulosis, Differential diagnosis: UTI, pyelonephritis, kidney stone, infectious versus inflammatory colitis/enteritis, diverticulitis, foodborne illness, appendicitis, bowel obstruction, perforation, abscess, mass or malignancy, electrolyte or metabolic abnormality, dehydration, among others. Administered Medications Discontinued Medications Albuterol (Albut/Ipratrop 3mg/0.5mg Neb 3 Ml Vial) 3 ml NEB NOW STA; Protocol Stop: 10/20/24 14:34 Last Admin: 10/20/24 14:41 Dose: 3 ml Documented By: EMIGDIO Washington Syrup (Washington Syrup 5 Ml Udp) 5 ml PO ONE STA Stop: 10/20/24 16:39 Last Admin: 10/20/24 17:24 Dose: 5 ml Documented By: EMIGDIO Ciprofloxacin (Cipro / D5w) 400 mg in 200 mls @ 100 mls/hr IV NOW STA; Protocol Stop: 10/20/24 17:43 Last Admin: 10/20/24 17:08 Dose: 100 mls/hr Documented By: EMIGDIO Metronidazole (Flagyl) 500 mg in 100 mls @ 100 mls/hr IV NOW STA; Protocol Stop: 10/20/24 16:43 Last Infusion: 10/20/24 17:08 Dose: Infused Documented By: Admin: 10/20/24 16:02 Dose: 100 mls/hr Documented By: EMIGDIO Ioversol (Optiray 320 100ml) 94 ml IV ONCE ONE Stop: 10/20/24 15:00 Last Admin: 10/20/24 15:00 Dose: 94 ml Documented By: GURDEEP Vancomycin HCl (Vancomycin Hcl 125 Mg/2.5ml Soln) 125 mg PO ONE STA Stop: 10/20/24 16:39 Last Admin: 10/20/24 17:24 Dose: 125 mg Documented By: EMIGDIO Medical Decision Making Differential Diagnosis See ED Course. Medical Records Attestation: I reviewed the patient's medical records. Home Medications Current Medication List: was personally reviewed by me Laboratory Data Attestation: I reviewed the patient's lab results. 10/20/24 13:20 10/20/24 13:20 Lab Results 10/20/24 10/20/24 Range/Units 13:10 13:20 WBC 13.16 H (4.8-10.8) K/ul RBC 4.97 (4.20-5.40) M/uL Hgb 14.8 (12.0-16.0) g/dl Hct 42.5 (37.0-47.0) % MCV 85.5 (80.0-100.0) fL MCH 29.8 (25.0-34.0) pg MCHC 34.8 (32.0-36.0) g/dL RDW Std Deviation 40.1 (36.4-46.3) fL RDW Coeff of [place]rec[place] 13.0 (11.5-14.5) % Plt Count 155 (130-400) K/uL MPV 11.0 (9.4-12.4) fL Immature Gran % (Auto) 0.5 % Neut % (Auto) 73.3 % Lymph % (Auto) 16.0 % [place] % (Auto) 9.4 % Eos % (Auto) 0.0 % Baso % (Auto) 0.8 % Neut # (Auto) 9.66 H (1.40-6.50) K/uL Lymph # (Auto) 2.10 (1.20-3.40) K/uL [place] # (Auto) 1.24 H (0.11-0.59) K/uL Eos # (Auto) 0.00 (0.00-0.50) K/uL Baso # (Auto) 0.10 (0.00-0.20) K/uL Immature Gran # (Auto) 0.06 (0.01-0.20) K/uL Sodium 137 (136-145) mmol/L Potassium 4.0 (3.5-5.1) mmol/L Chloride 104 (98-107) mmol/L Carbon Dioxide 25 (21-32) mmol/L Anion Gap 8 (3-11) BUN 15 (6-23) mg/dl Creatinine 1.15 (0.6-1.2) mg/dl Est Cr Clr Drug Dosing 57.5 ml/min eGFR 51.89 BUN/Creatinine Ratio 13.0 (10-20) Glucose 130 H (70-99(Fasting)) mg/dl Calcium 9.5 (8.6-10.3) mg/dl Total Bilirubin 0.8 (0.2-1.0) mg/dl AST 14 (13-39) U/L ALT 10 (7-52) U/L Alkaline Phosphatase 63 (34-104) U/L Total Protein 7.5 (6.0-8.3) gm/dl Albumin 3.9 (3.4-5.0) gm/dl Globulin 3.6 (2.5-4.0) gm/dl Albumin/Globulin Ratio 1.1 (0.9-2) Lipase 23 (11-82) U/L Urine Color Yellow Urine Appearance Clear (Clear) Urine pH 6.0 (4.5-7.5) Ur Specific Zeigler 1.013 (1.000-1.030) Urine Protein Negative (Negative) Urine Glucose (UA) Negative (Negative) Urine Ketones Negative (Negative) Urine Blood Trace H (Negative) Urine Nitrite Positive A (Negative) Urine Bilirubin Negative (Negative) Urine Urobilinogen Negative (Negative) Ur Leukocyte Esterase Trace H (Negative) Urine WBC (Auto) 0-5 (0-5) /hpf Urine RBC (Auto) 0-2 (0-2) /hpf U Hyaline Cast (Auto) 0-2 (0-2) /lpf U Epithel Cells (Auto) 0-2 (0-2) /hpf Urine Bacteria (Auto) 4+ H (None Seen) Urine Comment Imaging Data Attestation: I personally reviewed and interpreted this imaging study as follows: Radiologist's Impression: Abdomen/Pelvis CT 10/20/24 13:[address] WITH IV CONTRAST CT DOSE: 1384.47 mGy.cm HISTORY: Acute left lower quadrant abdominal pain LLQ abd/flank pain TECHNIQUE: Multiaxial CT images of the abdomen and pelvis were performed following the IV administration of 94 cc of Optiray, A dose lowering technique was utilized adhering to the principles of ALARA. COMPARISON STUDY: 02/20/2023 FINDINGS: Clear lung bases. No pneumatosis or pneumoperitoneum. Unremarkable spleen, and right adrenal gland. Punctate pancreatic calcifications likely represent sequela of chronic pancreatitis. Unchanged left adrenal adenoma measuring 1.8 cm. Unremarkable liver. Cholecystectomy with likely postsurgical biliary ductal dilation again noted. Patency of the hepatic and portal veins. Borderline enlarged periportal lymph nodes are likely benign. No hydronephrosis. Mild cortical thinning of the kidneys. Probable cysts of the right kidney measure up to 1.5 cm. Unremarkable urinary bladder. Fibroid uterus. Atherosclerosis of the aorta. Colonic diverticulosis with acute diverticulitis of the sigmoid. Probable intramural abscess measuring 3.9 x 1.0 cm. No drainable abscess is seen. No CT evidence of acute appendicitis. Unremarkable soft tissues. No acute fracture. IMPRESSION: 1. Acute sigmoid diverticulitis with probable intramural abscess measuring 4 cm. 2. No bowel obstruction, pneumoperitoneum or drainable fluid collection. 3. Incidental findings as above. ACT 112: Negative or not required by law. The above report was generated using voice recognition software. It may contain grammatical, syntax or spelling errors. Electronically signed by: Nabeel Dang M.D. 10/20/2024 3:39 PM MDM Narrative See ED Course. Impression & Plan Diverticulitis of intestine with abscess Discharge Plan Visit Data Chief Complaint: Abdominal Pain Stated Complaint: PAIN IN LOWER STOMACH ED Provider: David Baumann ED Midlevel Provider: Georgie [place] Discharge Problem: Diverticulitis of intestine with abscess Patient Disposition: Being Evaluated by Hospitalist Condition: Fair Forms Stand Alone Forms: [facility] [employer] Prescriptions Prescriptions: No Action (DME) Portable Oxygen Misc See Rx Instructions .MEDSUPPLY Qty: 1 0RF Rx Instructions: Oxygen 2 liters continuous via nasal cannula on exertion with portable concentrator. TJ 99 (DME) nebulizers Misc See Rx Instructions miscellaneous .MEDSUPPLY Qty: 1 5RF Rx Instructions: Nebulizer and neb kits. Her current nebulizer is broken beyond repair. She is to use it 4 times a day or as directed. Lifetime need. (DME) Auto Titrating CPAP Misc See Rx Instructions .MEDSUPPLY Qty: 1 0RF Rx Instructions: Auto PAP with 6-12 cm H20. Lifetime usage. G47.33 (DME) CPAP Supplies Misc See Rx Instructions .MEDSUPPLY Qty: 1 0RF Rx Instructions: CPAP supplies, mask, headgear, filters, tubing, water chamber. G47.33 Fasenra Pen 30 mg/mL auto-injector 30 mg subcut Q8WK Qty: 3 2RF Rx Instructions: LAST INJ 07/31/24 aspirin 81 mg tablet,delayed release (DR/EC) 81 mg PO DAILY albuterol sulfate 90 mcg/actuation HFA aerosol inhaler 2 puff INHALATION QID PRN (Reason: Shortness Of Breath Or Wheezing) Qty: 3 2RF albuterol sulfate 0.63 mg/3 mL solution for nebulization 0.63 mg INHALATION Q4H PRN (Reason: Shortness Of Breath Or Wheezing) Qty: 1620 2RF Rx Instructions: MIX WITH IPRATROPIUM FOR NEB. ipratropium bromide 0.02 % solution 2.5 ml INHALATION Q4H PRN (Reason: shortness of breath or wheezing) Qty: 1350 5RF Rx Instructions: MIX WITH ALBUTEROL FOR NEB. (DME) Discontinue DME Misc See Rx Instructions .MEDSUPPLY Qty: 1 0RF Rx Instructions: Discontinue oxygen magnesium oxide 500 mg Tablet 500 mg PO DAILY PRN (Reason: LEG CRAMPS) omega 1-cbi-zib-fish oil [Fish Oil] 1,000 mg (120 mg-180 mg) Capsule 1 cap PO DAILY cholecalciferol (vitamin D3) [Vitamin D3] 50 mcg (2,000 unit) Capsule 50 mcg PO DAILY losartan 50 mg tablet 75 mg PO DAILY fluticasone propion-salmeterol 500-50 mcg/dose blister with device 1 inh INHALATION BID Referrals Referrals: Fernando Bravo PA-C [Primary Care Provider] -
[2024-10-20 14:26] LABS: Alanine Aminotransferase 10.0 U/L (7-52); Albumin Globulin Ratio 1.1 (0.9-2); Alkaline Phosphatase 63.0 U/L (34-104); Anion Gap 8.0 (3-11); Bilirubin,Total 0.8 mg/dl (0.2-1.0); Blood Urea Nitrogen 15.0 mg/dl (6-23); Calcium 9.5 mg/dl (8.6-10.3); Carbon Dioxide 25.0 mmol/L (21-32); Chloride 104.0 mmol/L (98-107); Creatinine Clr Calc Pharmacy 57.5 ml/min; Globulin 3.6 gm/dl (2.5-4.0); Glucose 130.0 mg/dl (70-99(Fasting)); Lipase 23.0 U/L (11-82); Potassium 4.0 mmol/L (3.5-5.1); Sodium 137.0 mmol/L (136-145); Total Protein 7.5 gm/dl (6.0-8.3)
[2024-10-20] MEDS: ALBUT/IPRATROP 3MG/0.5MG NEB 3 ML VIAL NEB STA (14:41)
[2024-10-20] MEDS: OPTIRAY 320 100ml IV ONE (15:00)
--- NOTE | 2024-10-20 15:40 | CT Scan Report ---
ABDOMEN AND PELVIS CT WITH IV CONTRAST CT DOSE: 1384.47 mGy.cm HISTORY: Acute left lower quadrant abdominal pain LLQ abd/flank pain TECHNIQUE: Multiaxial CT images of the abdomen and pelvis were performed following the IV administrat ion of 94 cc of Optiray, A dose lowering technique was utilized adhering to the principles of ALARA. COMPARISON STUDY: 02/20/2023 FINDINGS: Clear lung bases. No pneumatosis or pneumoperitoneum. Unremarkable spleen, and right adrena l gland. Punctate pancreatic calcifications likely represent sequela of chronic pancreatitis. Unchang ed left adrenal adenoma measuring 1.8 cm. Unremarkable liver. Cholecystectomy with likely postsurgica l biliary ductal dilation again noted. Patency of the hepatic and portal veins. Borderline enlarged p eriportal lymph nodes are likely benign. No hydronephrosis. Mild cortical thinning of the kidneys. Probable cysts of the right kidney measure up to 1.5 cm. Unremarkable urinary bladder. Fibroid uterus. Atherosclerosis of the aorta. Colonic div erticulosis with acute diverticulitis of the sigmoid. Probable intramural abscess measuring 3.9 x 1.0 cm. No drainable abscess is seen. No CT evidence of acute appendicitis. Unremarkable soft tissues. N o acute fracture. IMPRESSION: 1. Acute sigmoid diverticulitis with probable intramural abscess measuring 4 cm. 2. No bowel obstruction, pneumoperitoneum or drainable fluid collection. 3. Incidental findings as above. ACT 112: Negative or not required by law. The above report was generated using voice recognition software. It may contain grammatical, syntax o r spelling errors. Electronically signed by: Nabeel Dang M.D. 10/20/2024 3:39 PM
[2024-10-20] MEDS: metroNIDAZOLE 500 MG/100 ML BAG IV STA (16:02)
--- NOTE | 2024-10-20 16:16 | History & Physical Report ---
Date of Service October 20, 2024 Assessment & Plan (1) Diverticulitis of intestine with abscess: (2) History of ESBL E. coli infection: (3) COPD with emphysema: Plan Patient is a 69-year-old female with past medical history of ESBL E. coli, ENDY, COPD, GERD. Presenting with abdominal pain found to be diverticulitis with 4cm diverticular abscess. IR stated abscess is too small to be drained. Admitted for IV antibiotics #Diverticulitis with Abscess | Hx of Cdiff - seen on CT, recent abnormal Cologuard but no recent colonscopy. PO Vanco for Cdiff prevention Okay for full liquids Continue cipro Q12 and flagyl q8 IV AM CBC and BMP #Hx of ESBL UTI UA concerning for infection on admission. Patient denies symptoms Await culture Contact precautions #HTN Continue lisinopril #COPD Continue home inhalers, prn nebs. O2 prn, goal > 90% #ENDY continue CPAP Dispo: admit to med/surg DVT proh: lovenox History of Present Illness Chief Complaint: abd pain Primary Care Provider: Fernando Bravo PA-C Patient is a 69-year-old female with past medical history of ESBL E. coli, ENDY, COPD, GERD. Who presents with abdominal pain that she reports felt like labor. Pain started last night and progressively got worse so decided to come in. Did not take anything at home for pain. Denies fevers or chills. No vomiting but some nausea. Had a BM 10/19 and reports was her normal. Has had a colonscopy prior - reports found pockets. But has not had one in multiple year. Had a abnormal Cologuard in the last month. Completed course of ertapenem after recent hospital course 08/21-08/22 for E.coli ESBL UTI . Then had course of PO vanco. Then had doxycyline and then a course of ciprofloxacin all for UTI. Patient states she never had urinary symptoms this. ED course: Albuterol neb cipro 400mg IV x1 Flagyl 100 mg IV Allergies Allergy/AdvReac Type Severity Reaction Status Date / Time Penicillins Allergy Severe RESP. Verified 10/20/24 16:26 ISSUES Sulfa (Sulfonamide Allergy Severe RESP. Verified 10/20/24 16:26 Antibiotics) ISSUES sulfamethoxazole Allergy Severe RESP. Verified 10/20/24 16:26 [From Bactrim] ISSUES trimethoprim [From Bactrim] Allergy Severe RESP. Verified 10/20/24 16:26 ISSUES ceftriaxone Allergy Intermediate Itching Verified 10/20/24 16:26 Home Medications Medication Instructions Recorded Confirmed Type magnesium oxide 500 mg PO DAILY PRN LEG CRAMPS 03/28/21 10/20/24 History Portable Oxygen #1 ea 11/14/22 08/27/24 Rx nebulizers #1 ea 02/02/23 08/27/24 Rx aspirin 81 mg tablet,delayed 81 mg PO DAILY 03/29/23 10/20/24 History release omega 5-jmb-gqd-fish oil 1,000 mg 1 cap PO DAILY 07/04/23 10/20/24 History (120 mg-180 mg) capsule (Fish Oil) Auto Titrating CPAP #1 ea 10/25/23 08/27/24 Rx CPAP Supplies #1 ea 10/25/23 08/27/24 Rx benralizumab 30 mg/mL subcutaneous 30 mg subcut Q8WK #3 syringes 10/25/23 10/20/24 Rx auto-injector (Fasenra Pen) Discontinue DME #1 ea 01/04/24 08/27/24 Rx albuterol sulfate 0.63 mg/3 mL 0.63 mg (3 mL) inhalation Q4H PRN 05/26/24 10/20/24 Rx solution for nebulization Shortness Of Breath Or Wheezing #1,620 mL albuterol sulfate 90 mcg/actuation 2 puff inhalation QID PRN 05/26/24 10/20/24 Rx aerosol inhaler Shortness Of Breath Or Wheezing #3 Inhalers ipratropium bromide 0.02 % 2.5 ml inhalation Q4H PRN 05/26/24 10/20/24 Rx solution for inhalation shortness of breath or wheezing #1,350 mL cholecalciferol (vitamin D3) 50 50 mcg PO DAILY 08/18/24 10/20/24 History mcg (2,000 unit) capsule (Vitamin D3) losartan 50 mg tablet 75 mg PO DAILY 08/18/24 10/20/24 History fluticasone 500 mcg-salmeterol 50 1 inh inhalation BID 08/22/24 10/20/24 History mcg/dose blistr powdr for inhalation Past Med/Surg History Problem List (Updated 10/20/24 @ 16:44 by Rayne Menon PA-C) History of ESBL E. coli infection Diverticulitis of intestine with abscess Complicated urinary tract infection (Acute) COPD (chronic obstructive pulmonary disease) Urinary tract infection due to extended-spectrum beta lactamase (ESBL) producing Escherichia coli Abrasion of great toe, right, infected Recurrent UTI Complicated urinary tract infection (Acute) Ureteral stone with hydronephrosis Hydronephrosis Acute respiratory failure with hypoxia ENDY (obstructive sleep apnea) Mucus plug in respiratory tract Peripheral eosinophilia Hypersomnia Chronic bronchitis Abnormal chest CT COPD with emphysema Collapse of left lung Diabetes Cough Current smoker Obstructive sleep apnea of adult COPD (chronic obstructive pulmonary disease) (Chronic) GERD (gastroesophageal reflux disease) (Chronic) H/O Clostridium difficile infection (Chronic) H/O colonoscopy (Chronic) "11/2013- hyperplastic polyp, diverticulosis" E. coli septicemia Herpes labialis Renal abscess Medical History (Updated 10/20/24 @ 16:44 by Rayne Menon PA-C) Gram negative septicemia Family History Other Cancer Diabetes Gallbladder disease Hypertension Lung disease Social History Smoking Status: Never smoker Tobacco Type: Cigarettes Age Started Using Tobacco: 27; Cigarettes Per Day: 18-20; Second Hand Exposure: No; Do You Dip or Chew Tobacco: No; Hx Alcohol Use: No Hx Substance Use: No Preferred Language: Algerian Communication Ability: Effective Wellness Health Coach Required: No Beliefs That Will Affect Care: None marital status: Current Living Situation: Alone current occupational status: employed Feels Safe at Home: Yes Assistive Devices: Nebulizer Review of Systems Review of Systems: All systems reviewed & are unremarkable except as noted in Subjective Physical Exam Physical Exam: General: NAD, VS as above Resp: normal respiratory effort,llungs coarse with expiratory wheeze on 2L CV: RRR, no murmur, Abd: normal bowel sounds, non tender, no hepatosplenomegaly Extremities: Moves all extremities, no edema Neuro: A&O x3, Skin: intact, no lesions noted Results & Data Results & Data Vital Signs (Past 12 Hours) Vital Signs Temp Pulse Pulse Resp BP BP Pulse Ox 10/20/24 15:00 88 16 121/69 91 10/20/24 14:42 92 H 10/20/24 12:58 97.7 F 118 H 20 128/77 93 O2 Del Method 10/20/24 15:00 Room Air 10/20/24 14:42 10/20/24 12:58 Room Air Laboratory Results cbc and chemsitry reviewed lfts reviewed Diagnostic Findings CT a/p reviewed Supervising Physician Co-Signing Physician Notes Patient was seen and examined independently I discussed the case with Rayne Miller PA-C I reviewed pertinent past medical social family history and also the plan of care and agree with the plan of care. Patient developed an attendant left lower quadrant abdominal pain last evening. Patient is never had a colonoscopy. Patient is found have a 4 cm intramural diverticular abscess in the distal colon on CT scan. This is for by 1 cm. I conversed with the interventional radiology they did not feel this is amenable to interventional radiology intervention for drainage. Patient states her pain is down to 4 out of 10. Patient has a penicillin allergy and she was started on ciprofloxacin and metronidazole. Patient's had problems in the past with urinary tract infections and kidney stones. She to her knowledge has no history of a diverticular infection but she was told in previous scans excetra that she has diverticulosis. Examination finds the patient to be nontoxic vital signs are stable cardiac exam is regular lungs are clear abdomen NABS soft she is without rebound tenderness she has some minor guarding the left lower quadrant and reproducible pain to examination of the left lower quadrant. Assessment peridiverticular abscess intramural abscess plan will be medical management at this time with prolonged course of antibiotics and likely outpatient colonoscopy in the 6 to 8-week range. If the patient deteriorates we will perhaps involve surgical consultation or transfer to a tertiary center Any exceptions will be noted below PG Care Time/CCT Total # of Minutes Spent Total Time Spent with Patient: Total time spent is greater than 50% in coordination of care (as documented) at patient's floor/unit and/or counseling patient: Coding Level of Care Code 31109 INT INP/OBS CARE MIN Diagnoses Diverticulitis of intestine with abscess K57.80 History of ESBL E. coli infection Z86.19 COPD with emphysema J43.9
[2024-10-20] MEDS: CIPROFLOXACIN / D5W 400 MG/200 ML BAG IV STA (17:08)
[2024-10-20] MEDS: VANCOMYCIN HCL 125 MG/2.5ML SOLN PO STA (17:24)
[2024-10-20] MEDS: CHERRY SYRUP 5 ML UDP PO STA (17:24)
[2024-10-20] MEDS ORDERED: ALBUTEROL HFA 8 GM INHALER INH PRN (20:43)
[2024-10-20] MEDS ORDERED: IPRATROPIUM BROMIDE NEB SOLN 0.02% 0.5MG/2.5ML VIAL INH PRN (20:43)
[2024-10-20] MEDS ORDERED: MELATONIN 3 MG TAB PO PRN (20:43)
[2024-10-20] MEDS ORDERED: POLYETHYLENE (MIRALAX) 17 GM PACK PO PRN (20:43)
[2024-10-20] MEDS ORDERED: ACETAMINOPHEN 500 MG TAB PO PRN (20:43)
[2024-10-20] MEDS ORDERED: ONDANSETRON INJ 2 MG/ML 2 ML VIAL IV PRN (20:43)
[2024-10-20] MEDS: ALBUT/IPRATROP 3MG/0.5MG NEB 3 ML VIAL NEB PRN (21:34)
[2024-10-20] MEDS: LOSARTAN POTASSIUM 25 MG TAB PO SCH (21:45)
[2024-10-20] MEDS: ASPIRIN 81 MG ECTAB PO SCH (21:46)
[2024-10-20] MEDS: metroNIDAZOLE 500 MG/100 ML BAG IV SCH (22:59)
[2024-10-21] MEDS: CIPROFLOXACIN / D5W 400 MG/200 ML BAG IV SCH (04:14)
[2024-10-21 07:42] LABS: Hematocrit (blood only) 40.0 % (37.0-47.0); Hemoglobin 13.6 g/dl (12.0-16.0); Mean Corpuscular Hemoglobin 29.4 pg (25.0-34.0); Mean Corpuscular Volume 86.6 fL (80.0-100.0); Platelet Count 127 K/uL (130-400); RDW Standard Deviation 40.4 fL (36.4-46.3); Red Blood Count 4.62 M/uL (4.20-5.40); White Blood Count 10.48 K/ul (4.8-10.8)
[2024-10-21 07:54] LABS: Anion Gap 6.0 (3-11); Blood Urea Nitrogen 14.0 mg/dl (6-23); Calcium 9.3 mg/dl (8.6-10.3); Carbon Dioxide 26.0 mmol/L (21-32); Chloride 105.0 mmol/L (98-107); Creatinine Clr Calc Pharmacy 54.1 ml/min; Glucose 124.0 mg/dl (70-99(Fasting)); Potassium 3.8 mmol/L (3.5-5.1); Sodium 137.0 mmol/L (136-145)
[2024-10-21] MEDS ORDERED: FLUTICASONE/VILANTEROL 200/25MCG 14 PUFFS/INHALER INH SCH (09:00)
[2024-10-21] MEDS: ENOXAPARIN INJ 40 MG/0.4 ML SYR SQ SCH (09:17)
[2024-10-21] MEDS: FLUTICASONE/VILANTEROL 100/25MCG 14 PUFFS/INHALER INH SCH (09:18)
[2024-10-21] MEDS: CHERRY SYRUP 5 ML UDP PO SCH (09:18)
[2024-10-21] MEDS: VANCOMYCIN HCL 125 MG/2.5ML SOLN PO SCH (09:19)
--- NOTE | 2024-10-21 09:38 | Hospitalist Progress Note ---
"Date of Service October 21, 2024 Assessment & Plan (1) Diverticulitis of intestine with abscess: (2) History of ESBL E. coli infection: (3) COPD with emphysema: Plan Patient is a 69-year-old female with past medical history of ESBL E. coli, ENDY, COPD, GERD. Presenting with abdominal pain found to be diverticulitis with 4cm diverticular abscess. IR stated abscess is too small to be drained. Admitted for IV antibiotics #Diverticulitis with Abscess | Hx of Cdiff - seen on CT, recent abnormal Cologuard but no recent colonscopy. PO Vanco for Cdiff prevention Continue cipro Q12 and flagyl q8 IV advance to low fiber leukocytosis has resolved. pain improved, continue IV abx for 24-48 hours. Will need outpatient repeat CT and colonoscopy AM CBC and BMP #Hx of ESBL UTI UA concerning for infection on admission. Patient denies symptoms UC: enterobacter, should be covered by cipro, await sensitivities Contact precautions #HTN Continue lisinopril #COPD Continue home inhalers, prn nebs. O2 prn, goal > 90% #ENDY continue CPAP Dispo: continued inpatient stay for IV antibiotics DVT proh: lovenox Admission and Anticipated Discharge Date Admission Date: October 20, 2024 Subjective patient seen sitting up in the chair - reports feeling much better. Denies abdominal pain no bowel movement yet tolerate full liquid diet without difficulty Review of Systems Review of Systems: All systems reviewed & are unremarkable except as noted in Subjective Physical Exam Physical Exam: General: NAD, VS as above Resp: normal respiratory effort, lungs coarse, wheezing improved CV: RRR, no murmur, Abd: normal bowel sounds, non tender, no hepatosplenomegaly Extremities: Moves all extremities, no edema Neuro: A&O x3, Skin: intact, no lesions noted Results & Data Results & Data Vital Signs (Past 12 Hours) Vital Signs Temp Pulse Resp BP Pulse Ox O2 Del Method 10/21/24 08:51 98.0 F 100 H 17 113/82 91 Room Air 10/21/24 05:03 96 H 18 89 L Room Air Laboratory Results cbc and chemistry reviewed PG Care Time/CCT Total # of Minutes Spent Total Time Spent with Patient: Total time spent is greater than 50% in coordination of care (as documented) at patient's floor/unit and/or counseling patient: Coding Level of Care Code 30304 SUB INP/OBS CARE MIN Diagnoses Diverticulitis of intestine with abscess K57.80 History of ESBL E. coli infection Z86.19 COPD with emphysema J43.9"
--- NOTE | 2024-10-22 06:19 | Electrocardiogram Report ---
Test Reason : Blood Pressure : */* mmHG Vent. Rate : 106 BPM Atrial Rate : 106 BPM P-R Int : 150 ms QRS Dur : 96 ms QT Int : 358 ms P-R-T Axes : 67 43 69 degrees QTcB Int : 475 ms Sinus tachycardia Premature ventricular complexes Possible Left atrial enlargement Possible Anterior infarct , age undetermined Abnormal ECG When compared with ECG of 21-Aug-2024 17:23, Premature ventricular complexes are now Present Confirmed by Marino Clayton ([id number]) on 10/22/2024 6:19:13 AM Referred By: Confirmed By: Marino Clayton
[2024-10-22 07:32] LABS: Hematocrit (blood only) 41.4 % (37.0-47.0); Hemoglobin 13.8 g/dl (12.0-16.0); Mean Corpuscular Hemoglobin 29.0 pg (25.0-34.0); Mean Corpuscular Volume 87.0 fL (80.0-100.0); Platelet Count 145 K/uL (130-400); RDW Standard Deviation 41.3 fL (36.4-46.3); Red Blood Count 4.76 M/uL (4.20-5.40); White Blood Count 8.66 K/ul (4.8-10.8)
[2024-10-22 07:53] LABS: Anion Gap 7.0 (3-11); Blood Urea Nitrogen 17.0 mg/dl (6-23); Calcium 9.4 mg/dl (8.6-10.3); Carbon Dioxide 26.0 mmol/L (21-32); Chloride 105.0 mmol/L (98-107); Creatinine Clr Calc Pharmacy 51.2 ml/min; Glucose 117.0 mg/dl (70-99(Fasting)); Potassium 3.8 mmol/L (3.5-5.1); Sodium 138.0 mmol/L (136-145)
--- NOTE | 2024-10-22 09:55 | Hospitalist Progress Note ---
"Date of Service October 22, 2024 Assessment & Plan (1) Diverticulitis of intestine with abscess: (2) History of ESBL E. coli infection: (3) COPD with emphysema: Plan Patient is a 69-year-old female with past medical history of ESBL E. coli, ENDY, COPD, GERD. Presenting with abdominal pain found to be diverticulitis with 4cm diverticular abscess. IR stated abscess is too small to be drained. Admitted for IV antibiotics #Diverticulitis with Abscess | Hx of Cdiff - seen on CT, recent abnormal Cologuard but no recent colonscopy. PO Vanco for Cdiff prevention Continue cipro Q12 and flagyl q8 IV advance to low fiber leukocytosis has resolved. pain improved, continue IV abx for 24-48 hours. Will need outpatient repeat CT and colonoscopy Slight increase in Cr - 500cc of NSS given, AM BMP AM BMP #Hx of ESBL UTI UA concerning for infection on admission. Patient denies symptoms UC: enterobacter, intermediate resistane to cipro - remains asymptomatic, will not treat Contact precautions #HTN Continue lisinopril #COPD Continue home inhalers, prn nebs. O2 prn, goal > 90% #ENDY continue CPAP Dispo: continued inpatient stay for IV antibiotics, plan for discharge tomorrow DVT proh: lovenox Admission and Anticipated Discharge Date Admission Date: October 20, 2024 Subjective Patient seen sitting up in the chair - no abdominal pain with diet advancement. Confirms no urinary symptoms. Eager to go home Review of Systems Review of Systems: All systems reviewed & are unremarkable except as noted in Subjective Physical Exam Physical Exam: General: NAD, VS as above Resp: normal respiratory effort, lungs coarse, wheezing improved CV: RRR, no murmur, Abd: normal bowel sounds, non tender, no hepatosplenomegaly Extremities: Moves all extremities, no edema Neuro: A&O x3, Skin: intact, no lesions noted Results & Data Results & Data Vital Signs (Past 12 Hours) Vital Signs Temp Pulse Resp BP Pulse Ox O2 Del Method 10/22/24 07:54 97.7 F 86 18 106/70 87 L Room Air 10/22/24 06:33 68 20 89 L Room Air 10/22/24 06:14 92 Room Air 10/22/24 00:04 Room Air 10/21/24 22:06 88 18 89 L Room Air 10/21/24 21:53 98.2 F 84 18 111/71 90 Room Air Laboratory Results cbc and chemsitry reviewed PG Care Time/CCT Total # of Minutes Spent Total Time Spent with Patient: Total time spent is greater than 50% in coordination of care (as documented) at patient's floor/unit and/or counseling patient: Coding Level of Care Code 23850 SUB INP/OBS CARE 2/35MIN Diagnoses Diverticulitis of intestine with abscess K57.80 History of ESBL E. coli infection Z86.19 COPD with emphysema J43.9"
[2024-10-22] MEDS: LACTATED RINGER'S 500 ML IV ONE (10:22)
[2024-10-22 22:33] VITALS: TEMP 97.9
[2024-10-23 07:07] VITALS: RESP 18; O2SAT 90
[2024-10-23 07:34] LABS: Anion Gap 4.0 (3-11); Blood Urea Nitrogen 21.0 mg/dl (6-23); Calcium 8.9 mg/dl (8.6-10.3); Carbon Dioxide 28.0 mmol/L (21-32); Chloride 107.0 mmol/L (98-107); Creatinine Clr Calc Pharmacy 46.2 ml/min; Glucose 119.0 mg/dl (70-99(Fasting)); Potassium 4.1 mmol/L (3.5-5.1); Sodium 139.0 mmol/L (136-145)
[2024-10-23 07:55] VITALS: BP 107/66; PULSE 86
[2024-10-23] MEDS: LACTATED RINGER'S 1,000 ML IV ONE (09:52)
--- NOTE | 2024-10-23 10:14 | Discharge Summary ---
"Discharge Summary Date of Service October 23, 2024 Principal Dx & Hospital Course #1 = Principal Diagnosis (1) Diverticulitis of intestine with abscess: (2) History of ESBL E. coli infection: (3) COPD with emphysema: Plan Patient is a 69-year-old female with past medical history of ESBL E. coli, ENDY, COPD, GERD. Presenting with abdominal pain found to be diverticulitis with 4cm diverticular abscess. IR stated abscess is too small to be drained. Admitted for IV antibiotics #Diverticulitis with Abscess | Hx of Cdiff - seen on CT, recent abnormal Cologuard but no recent colonscopy. Abdominal pain quickly resolved, tolerating low fiber diet. Recieved Ciprofloxacin and flagyl IV, will be continued on these PO at discharge. Continue PO Vanco for Cdiff prevention. Continue low fiber diet. Recommend repeat outpatient CT next week and then colonoscopy in 6-8 weeks. #MIRNA | HTN Slight increase day of discharge, given 1L of fluids prior to discharge. Hold losartan. Recommend repeat BMP next week. #Hx of ESBL UTI UA concerning for infection on admission. Patient denies symptoms. UC: enterobacter, intermediate resistance to cipro - remains asymptomatic, will not treat #COPD Continue home inhalers, prn nebs. #ENDY continue CPAP Dispo:discharge to home today. Needs outpatient follow up CT and BMP Notes For Next Care Provider Recommend repeat CT near end of treatment, colonscopy 6-8 weeks repeat BMP ~ 3 days Medication Changes From Visit losartan held with MIRNA Admission HPI Per Admitting Provider Patient is a 69-year-old female with past medical history of ESBL E. coli, ENDY, COPD, GERD. Who presents with abdominal pain that she reports felt like labor. Pain started last night and progressively got worse so decided to come in. Did not take anything at home for pain. Denies fevers or chills. No vomiting but some nausea. Had a BM 10/19 and reports was her normal. Has had a colonscopy prior - reports found pockets. But has not had one in multiple year. Had a abnormal Cologuard in the last month. Completed course of ertapenem after recent hospital course 08/21-08/22 for E.coli ESBL UTI . Then had course of PO vanco. Then had doxycyline and then a course of ciprofloxacin all for UTI. Patient states she never had urinary symptoms this. ED course: Albuterol neb cipro 400mg IV x1 Flagyl 100 mg IV Discharge Exam General: NAD, VS as above Resp: normal respiratory effort, lungs coarse, wheezing improved CV: RRR, no murmur, Abd: normal bowel sounds, non tender, no hepatosplenomegaly Extremities: Moves all extremities, no edema Neuro: A&O x3, Skin: intact, no lesions noted Discharge Plan Discharge Items Patient Disposition: Home - Self-Care Reason For Visit: DIVERTICULITIS Discharge Diagnosis: Diverticulitis with abscess Condition on Discharge: Fair Activity: Resume your previous activity Weightbearing: Full weightbearing Non-emergency contact: Primary Care Provider Call non-emergency contact if: you have any medication questions, your symptoms worsen and your temperature is above 101 Follow-up/Referrals: Fernando Bravo PA-C [Primary Care Provider] - (Follow up within one week ) Diet: Low Fiber Addtl Attending Provider Instructions: Ms. Westbrook, Mike were hospitalized after having abdominal pain at home - this was found to be from diverticulitis with a small abscess. This was too small to be drained and you were treated on IV antibiotics. You were continued on oral antibiotics with ciprofloxacin and Flagyl. Ciprofloxacin will be twice a day - take the first dose tonight. Flagyl will be three times today, take mid day dose and evening dose today. Your PCP should order a repeat CT scan in about 7-10 days towards the end of your antibiotics course to make sure the abscess is resolved. You also will be continued on oral vancomycin to prevent c.diff. This should be continued after your completion of antibiotics. You were also having slight elevations in your kidney function on the day of discharge. You were given IV fluids prior to discharge. Please hold your losartan until you have repeat labs that confirm your kidney function has improved. You should make sure you are staying extra hydrated over the next few days. Your provider should order a repeat BMP (basic metabolic panel) to check your kidney function. Activity: You can do normal everyday activities as your body allows. Take rest breaks if you feel tired. Do not overexert. Stop activity if you have pain, shortness of breath or feel dizzy. Follow-up appointments: Make an appointment with your primary care physician within one week of discharge. A copy of this summary will be sent to them. Every time you see your primary care physician, or any other doctor, bring your medication list, and a list of questions. CONTACT YOUR PRIMARY CARE PROVIDER if you experience any of the following: Shortness of breath or difficulty breathing Fevers or chills Feeling tired with normal activity or experiencing dizziness or fainting Difficulty following your treatment plan, or difficulty taking medications CALL 911 OR GO TO THE EMERGENCY DEPARTMENT if you experience any of the following: Severe abdominal pain or nausea/vomiting Severe chest pain, or chest pain that radiates (moves) to your jaw or arm Sudden, severe shortness of breath or difficulty breathing Thank you for allowing us to participate in your care. Pending Studies at Discharge: No Stand-Alone Forms: [facility] Medications and DC Order Prescriptions: New ciprofloxacin HCl 500 mg tablet 500 mg PO BID Qty: 20 0RF metronidazole 500 mg tablet 500 mg PO Q8H 10 Days Qty: 30 0RF vancomycin 125 mg capsule 125 mg PO DAILY Qty: 15 0RF Continued (DME) Portable Oxygen Misc See Rx Instructions .MEDSUPPLY Qty: 1 0RF Rx Instructions: Oxygen 2 liters continuous via nasal cannula on exertion with portable concentrator. TJ 99 (DME) nebulizers Misc See Rx Instructions miscellaneous .MEDSUPPLY Qty: 1 5RF Rx Instructions: Nebulizer and neb kits. Her current nebulizer is broken beyond repair. She is to use it 4 times a day or as directed. Lifetime need. (DME) Auto Titrating CPAP Misc See Rx Instructions .MEDSUPPLY Qty: 1 0RF Rx Instructions: Auto PAP with 6-12 cm H20. Lifetime usage. G47.33 (DME) CPAP Supplies Misc See Rx Instructions .MEDSUPPLY Qty: 1 0RF Rx Instructions: CPAP supplies, mask, headgear, filters, tubing, water chamber. G47.33 Fasenra Pen 30 mg/mL auto-injector 30 mg subcut Q8WK Qty: 3 2RF Rx Instructions: LAST INJ 07/31/24 aspirin 81 mg tablet,delayed release (DR/EC) 81 mg PO DAILY albuterol sulfate 90 mcg/actuation HFA aerosol inhaler 2 puff INHALATION QID PRN (Reason: Shortness Of Breath Or Wheezing) Qty: 3 2RF albuterol sulfate 0.63 mg/3 mL solution for nebulization 0.63 mg INHALATION Q4H PRN (Reason: Shortness Of Breath Or Wheezing) Qty: 1620 2RF Rx Instructions: MIX WITH IPRATROPIUM FOR NEB. ipratropium bromide 0.02 % solution 2.5 ml INHALATION Q4H PRN (Reason: shortness of breath or wheezing) Qty: 1350 5RF Rx Instructions: MIX WITH ALBUTEROL FOR NEB. (DME) Discontinue DME Misc See Rx Instructions .MEDSUPPLY Qty: 1 0RF Rx Instructions: Discontinue oxygen magnesium oxide 500 mg Tablet 500 mg PO DAILY PRN (Reason: LEG CRAMPS) omega 9-vth-rqu-fish oil [Fish Oil] 1,000 mg (120 mg-180 mg) Capsule 1 cap PO DAILY cholecalciferol (vitamin D3) [Vitamin D3] 50 mcg (2,000 unit) Capsule 50 mcg PO DAILY fluticasone propion-salmeterol 500-50 mcg/dose blister with device 1 inh INHALATION BID Held losartan 50 mg tablet 75 mg PO DAILY Hold Instructions: Provider's Order - until kidney function improves Discharge Orders: Discharge Order (Routine); Ordered 10/23/24 Ordered By: Rayne Cuevas/Other Patient Handouts: Low-Fiber Diet, Diverticulitis Dc Admission Data Admit Date/Time: 10/20/24 16:42 Attending Provider: Zaire Muro Admit Provider: Troy Azevedo Primary Care Provider: Fernando Bravo Other Providers: Troy Azevedo Hospital Stay Data Consultations 10/20/24 16:11 ED Decision to Admit Stat Diagnostic Imagining Performed Abdomen/Pelvis CT 10/20/24 13:[address] WITH IV CONTRAST CT DOSE: 1384.47 mGy.cm HISTORY: Acute left lower quadrant abdominal pain LLQ abd/flank pain TECHNIQUE: Multiaxial CT images of the abdomen and pelvis were performed following the IV administration of 94 cc of Optiray, A dose lowering technique was utilized adhering to the principles of ALARA. COMPARISON STUDY: 02/20/2023 FINDINGS: Clear lung bases. No pneumatosis or pneumoperitoneum. Unremarkable spleen, and right adrenal gland. Punctate pancreatic calcifications likely represent sequela of chronic pancreatitis. Unchanged left adrenal adenoma measuring 1.8 cm. Unremarkable liver. Cholecystectomy with likely postsurgical biliary ductal dilation again noted. Patency of the hepatic and portal veins. Borderline enlarged periportal lymph nodes are likely benign. No hydronephrosis. Mild cortical thinning of the kidneys. Probable cysts of the right kidney measure up to 1.5 cm. Unremarkable urinary bladder. Fibroid uterus. Atherosclerosis of the aorta. Colonic diverticulosis with acute diverticulitis of the sigmoid. Probable intramural abscess measuring 3.9 x 1.0 cm. No drainable abscess is seen. No CT evidence of acute appendicitis. Unremarkable soft tissues. No acute fracture. IMPRESSION: 1. Acute sigmoid diverticulitis with probable intramural abscess measuring 4 cm. 2. No bowel obstruction, pneumoperitoneum or drainable fluid collection. 3. Incidental findings as above. ACT 112: Negative or not required by law. The above report was generated using voice recognition software. It may contain grammatical, syntax or spelling errors. Electronically signed by: Nabeel Dang M.D. 10/20/2024 3:39 PM Pending Results Patient Have Any Pending Studies at Discharge: No Discharge Instructions Given to Patient (Per Discharging Provider) Ms. Westbrook, Mike were hospitalized after having abdominal pain at home - this was found to be from diverticulitis with a small abscess. This was too small to be drained and you were treated on IV antibiotics. You were continued on oral antibiotics with ciprofloxacin and Flagyl. Ciprofloxacin will be twice a day - take the first dose tonight. Flagyl will be three times today, take mid day dose and evening dose today. Your PCP should order a repeat CT scan in about 7-10 days towards the end of your antibiotics course to make sure the abscess is resolved. You also will be continued on oral vancomycin to prevent c.diff. This should be continued after your completion of antibiotics. You were also having slight elevations in your kidney function on the day of discharge. You were given IV fluids prior to discharge. Please hold your losartan until you have repeat labs that confirm your kidney function has improved. You should make sure you are staying extra hydrated over the next few days. Your provider should order a repeat BMP (basic metabolic panel) to check your kidney function. Activity: You can do normal everyday activities as your body allows. Take rest breaks if you feel tired. Do not overexert. Stop activity if you have pain, shortness of breath or feel dizzy. Follow-up appointments: Make an appointment with your primary care physician within one week of discharge. A copy of this summary will be sent to them. Every time you see your primary care physician, or any other doctor, bring your medication list, and a list of questions. CONTACT YOUR PRIMARY CARE PROVIDER if you experience any of the following: Shortness of breath or difficulty breathing Fevers or chills Feeling tired with normal activity or experiencing dizziness or fainting Difficulty following your treatment plan, or difficulty taking medications CALL 911 OR GO TO THE EMERGENCY DEPARTMENT if you experience any of the following: Severe abdominal pain or nausea/vomiting Severe chest pain, or chest pain that radiates (moves) to your jaw or arm Sudden, severe shortness of breath or difficulty breathing Thank you for allowing us to participate in your care. Total Time Total Time Spent Total Time Spent (In Minutes): Time spent day of discharge 35 minutes including direct patient care, medication reconciliation, documentation, review of labs and images, and coordination of care. Coding Level of Care Code 16269 INP/OBS DISCH >30 MIN Diagnoses Diverticulitis of intestine with abscess K57.80 History of ESBL E. coli infection Z86.19 COPD with emphysema J43.9"
== END 2024-10-23 11:35 | disposition home or self-care (01) | DRG 392 ==
LOC: ED 12:50 → 3W 16:42 → SUATTDRO 16:42 → 3W 20:23